=== PATIENT | male | born 1955 | race Caucasian/White ===

== ENCOUNTER 2025-06-01 12:28 | Outpatient (NON) | payer SELFPAY ==
--- OUTSIDE RECORDS SUMMARY | 2009-12-31 04:45 | XMS_ITS | Continuity of Care Document ---
Author Organization [facility] Address [address] [facility] [address] [place] [address] Phone Care Team Providers Care Silver Wrapper Name Role Phone [place] Montes MD Unavailable Unavailable Procedures Procedure Date Eye Exam Established Pt Eye Exam, New Patient Special Eye Evaluation Corneal Pachymetry Visual Field Examination(s) Fundus Photography W/ Report Advance Directives Directive Yes / No Effective Date File Name No Information Encounters Encounter Description Practice Location Reason(s) For Visit Diagnoses Date Provider Providers Copied on Encounter [facility], [address], [place], [place], [id number], tel:[phone] SEC Mohamud [place] Professional No Information Dec-3 0-201 0 Simon [place]. 1 [employer], [address], [address], [place]. tel:[phone] Referring Provider: Priscila Figueroa OD, [address] [place] [address], [address]. tel:[phone] [facility], [address], [place], [place], [id number], [place] tel:[phone] SEC Mohamud [place] Professional No Information Dec-0 9-201 0 Simon [place]. 1 [employer], [facility] [address], [address], [place]. tel:[phone] Referring Provider: Priscila Figueroa OD, [address] [place] [address], [address]. tel:[phone] Family History Family Member Type Diagnosis Age At Onset No Information Payers Payer name Insurance type Covered constitution party ID Mian washburn(s) [facility] [id number] Social History Type Description Quantity Date Captured Comments Sex Male Smoking Status No Information Chief Complaint And Reason For Visit No Information Reason For Referral Reason For Referral No Information History Of Present Illness Encounter Date Complaint History Of Prese nt Illness No Information Functional Status Date Functional Assessmen t No Information Instructions Date Instruction Additional Infor mation No Information Assessments Type Assessment Date No Information Patient Care Teams Name Effective Dates (start - stop) Status Members No Information
--- OUTSIDE RECORDS SUMMARY | 2025-06-01 13:18 | XMS_ITS | Clinical Summary ---
Author Organization [id number] [facility] Address [address] [place] [address] Care Team Providers Care Lumber Racker Name Role Phone Rafael Motta MD Primary Care Provider [phone] Allergies No known active allergies Medications albuterol sulfate HFA 90 mcg/actuation aerosol inhaler Take 2 Puffs by inhalation every 6 hours as needed for Shortness of Breath. Active acetaminophen (TYLENOL) 500 mg tablet Take 500 mg by mouth every 6 hours as needed. Active amLODIPine (NORVASC) 5 mg tablet Take 5 mg by mouth daily. Active aspirin (ECOTRIN EC) 81 mg Tablet, Delayed Release (E.C.) Take 81 mg by mouth daily. Active atorvastatin (LIPITOR) 40 mg tablet Take 40 mg by mouth daily. Active clopidogreL (PLAVIX) 75 mg Tablet Take 75 mg by mouth daily. Active fluticasone-ume clidinium-vilan terol (Trelegy Ellipta) 100-62.5-25 mcg Disk with Device Take 1 Puff by inhalation daily. Active dextromethorpha n-guaiFENesin (MUCINEX DM) 30-600 mg Tablet Sustained Release 12HR Take 1 Tablet by mouth every 12 hours. Active levETIRAcetam (KEPPRA) 250 mg tablet Take 250 mg by mouth 2 times daily. Active losartan (COZAAR) 50 mg tablet Take 50 mg by mouth daily. Active metoprolol succinate (TOPROL XL) 25 mg Extended Release 24 hour tablet Take 12.5 mg by mouth daily. Active Active Problems No known active problems Encounters Date Type Department Care Team Description 05/19/2025 External Device Data [facility] Provider, Abstract 05/12/2025 External Device Data [facility] Provider, Abstract from Last 3 Months Family History Medical History Relation Name Comments Diabetes Type 1 Father Stroke Mother Relation Name Status Comments Father Mother Social History Tobacco Use Types Packs/Day Years Used Date Smoking Tobacco: Former Cigarettes Tobacco Cessation:Counseling Given: Not Answered Alcohol Use Standard Drinks/Week Comments Never 0 (1 standard drink = 0.6 oz pur e alcohol) Sex and Gender Information Value Date Recorded Sex Assigned at Not on file Legal Sex Male 10:04 AM CDT Gender Identity Not on file Sexual Orientation Not on file Last Filed Vital Signs Vital Sign Reading Time Taken Comments Blood Pressure 144/76 02/09/2025 2:03 PM CDT Pulse 60 02/09/2025 2:03 PM CDT Temperature - - Respiratory Rate - - Oxygen Saturation - - Inhaled Oxygen Concentration - - Weight 103 kg (227 lb) 02/09/2025 2:03 PM CDT Height 176.5 cm (5' 9.5) 02/09/2025 2:03 PM CDT Body Mass Index 33.04 02/09/2025 2:03 PM CDT Plan of Treatment Health Maintenance Due Date Last Done Comments Pre-Diabetes and Diabetes Screening 1956 FIT-DNA Q 3 years 2001 FIT/FOBT Q 1 year 2001 Flex Sig/CT Colonography Q 5 years 2001 ZOSTER VACCINE (1 of 2) 2006 RSV VACCINE (60+ or ) (1 - Risk 60-74 years 1-dose series) 2016 Abdominal Aortic Aneurysm (A AA) Screening 2021 INFLUENZA VACCINE (#1) 2025 , 06/03/2024, 09/05/2023, Additional history exists DTAP/TDAP/TD VACCINES (2 - T d or Tdap) 02/05/2032 02/04/2022 COLORECTAL SCREENING 03/13/2033 03/13/2023, 03/13/2023, 09/06/2022 Colorectal Cancer Screening 03/13/2033 PNEUMOCOCCAL VACCINE 50+ YEARS Completed 02/14/2023 , 01/03/2022 Insurance [facility] Care Teams Lumber Racker Relationship Specialty Start Date End Date Rafael Motta MD 4 [facility] [address] [place] [id number] PCP - General Family Practice 02/04/25
--- OUTSIDE RECORDS SUMMARY | 2025-06-01 13:18 | XMS_ITS | Clinical Summary ---
Author Organization [facility] Address [address] [place] [address] Care Team Providers Care Automobile Assembly Supervisor Name Role Phone Rafael Motta MD Primary Care Provider [phone] Source Comments [facility],non-owned Affiliates and Associated Physician Practices is amultiple site organization consisting of ambulatory clinics and hospital sitesin [place], [place], [place] and [place]. This disclosure is being madepursuant to the Care Everywhere program and may not contain all information available regarding this patient. Last updated 18.[facility] Allergies No known active allergies Medications * Be aware that medications may not be up to date on this document. Alwaysverify current medications with the patient. losartan (Cozaar) 50 MG tablet Take 1 (one) tablet by mouth once daily Active acetaminophen (Tylenol) 325 MG tablet Take 2 (two) tablets by mouth every 4 hours as needed Maximum allowable Acetaminophen amount = 4 Grams (4000 mg) / 24 hours. 4 Active aspirin (Aspirin) 81 MG chew tablet Take 1 (one) tablet by mouth once daily 4 Active atorvastatin (Lipitor) 40 MG tablet Take 1 (one) tablet by mouth at bedtime 4 Active amLODIPine (Norvasc) 10 MG tablet Take 1 (one) tablet by mouth once daily 4 Active clopidogrel (plaVIX) 75 MG tablet Take 1 (one) tablet by mouth once daily 4 Active budesonide-for moterol (Symbicort) 80-4.5 MCG/ACT inhaler Inhale 2 (two) puffs by mouth 2 times daily 4 Active albuterol HFA (Proventil; Ventolin; Proair) 108 (90 Base) MCG/ACT inhaler Inhale 2 (two) puffs by mouth every 6 hours as needed 4 Active levETIRAcetam (Keppra) 250 MG tablet Take 1 (one) tablet by mouth 2 times daily 5 Active furosemide (Lasix) 20 MG tablet Take 1 (one) tablet by mouth once daily 5 Active Trelegy Ellipta 100-62.5-25 MCG/ACT Inhale 1 (one) puff by mouth once daily 5 09/12/19 26 Active metoprolol succinate XL 24hr (Toprol XL) 25 MG tablet Take 0.5 (one-half) tablet by mouth once daily 5 Active Active Problems Problem Noted Date Diagnosed Date Other emphysema 03/20/2024 Overview (04/30/2024): Last Assessment & Plan: Worsening sx and not at goal Was started on combivent respimat and has been using it standing qid Discussed this shuold be only as needed Will refill now And start symbicort bid Annual physical exam 03/20/2024 Overview (05/29/2024): Last Assessment & Plan: Discussed lifestyle modifications, diet and exercise. Routine blood work ordered/reviewed today. Yearly vision and dental examinations. Cerebrovascular accident (CVA), unspecified mech anism 02/14/2024 Colon polyp 04/04/2023 Class 1 obesity due to exces s calories with serious comorbidity and body mass index (BMI) of 32.0 to 32.9 in adult 02/14/2023 Overview (04/30/2024): Last Assessment & Plan: Wt Readings from Last 3 Encounters: 03/20/24 102.2 kg (225 lb 3.2 oz) 09/05/23 100.1 kg (220 lb 9.6 oz) 05/09/23 94.3 kg (207 lb 12.8 oz) BMI Readings from Last 3 Encounters: 03/20/24 32.53 kg/m 09/05/23 31.87 kg/m 05/09/23 30.03 kg/m Not at goal of bmi <30 Continue diet and exercise BMI Follow-up includes: nutrition counseling and exercise counseling. Abnormal gait 04/11/2022 Overview (04/30/2024): Ambulates with single point cane, may be due to loss of vision. Current smoker 01/03/2022 Overview (04/30/2024): Last Assessment & Plan: Has quit now since his hospital stay Continue NRT as needed doing nicotine patch Hypertension, essential 01/03/2022 Overview (04/30/2024): Last Assessment & Plan: BP Readings from Last 3 Encounters: 03/20/24 128/62 09/05/23 138/72 05/09/23 139/77 Vitals BP 128/62 (BP Location: Right arm, Patient Position: Sitting) Pulse 64 Resp 16 Ht 177.2 cm (5' 9.76) Wt 102.2 kg (225 lb 3.2 oz) SpO2 96% BMI 32.53 kg/m Lab Results Component Value Date POTASSIUM 3.9 04/25/2023 At goal cotninue current regimen losartan 50 mg qd , norvasc 10 mg qd Vision loss 01/03/2022 Overview (04/30/2024): Last Assessment & Plan: 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 (FLUAD QUADRIVALENT; 65Y+) (AIIV4) 06/03/2024 Social History Tobacco Use Types Packs/Day Years Used Date Smoking Tobacco: Former Cigarettes 1 54.6 0 09/29/1969 - 05/19/2024 Smokeless Tobacco: Never Tobacco Cessation:Counseling Given: Not Answered Alcohol Use Standard Drinks/Week Comments Never 0 (1 standard drink = 0.6 oz pur e alcohol) AUDIT-C Answer Date Recorded Q1: How often do you have a drink containing alcohol? Never 06/02/2024 Q2: How many drinks containi ng alcohol do you have on a typical day when you are drinking? Patient does not drink Q3: How often do you have si x or more drinks on one occasion? Never 06/02/2024 Overall Financial Resource Strain (CARDIA) Answe r Date Recorded How hard is it for you to pa y for the very basics like food, housing, medical care, and heating? Not very hard 06/02/2024 PHQ-2 Answer Date Recorded Patient Health Questionnaire-2 Score 0 02/16/2024 [facility] - Occupational Stress Questionnaire Answer Date Recorded Do you feel stress - tense, restless, nervous, or anxious, or unable to sleep at night because your mind is troubled all the time - these days? Not at all 06/02/2024 Hunger Vital Sign Answer Date Recorded Within the past 12 months, y ou worried that your food would run out before you got the money to buy more. Never true 06/02/20 24 Within the past 12 months, t he food you bought just didn't last and you didn't have money to get more. Never true 06/02/2024 PRAPARE - Transportation Answer Date Re corded In the past 12 months, has l ack of transportation kept you from medical appointments or from getting medications? No 05/06 In the past 12 months, has l ack of transportation kept you from meetings, work, or from getting things needed for daily living? No 06/02/2024 Housing Stability Vital Sign Answer Jay e Recorded In the last 12 months, was t here a time when you were not able to pay the mortgage or rent on time? No 06/02/2024 In the last 12 months, how many places have you lived? 1 06/02/2024 In the last 12 months, was t here a time when you did not have a steady place to sleep or slept in a fdc (including now)? No 06/02/2024 Sex and Gender Information Value Date Recorded Sex Assigned at Not on file Legal Sex Male 7:04 PM CDT Gender Identity Not on file Sexual Orientation Not on file Last Filed Vital Signs Vital Sign Reading Time Taken Comments Blood Pressure 128/63 06/03/2024 12:01 PM CDT Pulse 59 06/03/2024 12:01 PM CDT Temperature 36.8 C (98.2 F) 06/03/2024 12:10 PM CDT Respiratory Rate 21 06/03/2024 12:01 PM CDT Oxygen Saturation 90% 06/03/2024 12:01 PM CDT Inhaled Oxygen Concentration - - Weight 102.5 kg (226 lb) 03/04/2025 2:46 PM CDT Height 175.3 cm (5' 9) 06/02/2024 2:28 PM CDT Body Mass Index 33.37 06/02/2024 2:28 PM CDT Plan of Treatment Health Maintenance Due Date Last Done Comments COLOGUARD (AGES 45-75) - COLON CA SCREENING 1956 CT COLONOGRAPHY - COLON CA SCREENING 1956 FIT - COLON CA SCREENING 1956 FLEX SIG - COLON CA SCREENING 1956 MEDICARE AWV 12 MONTHS 1956 DTAP/TDAP/TD VACCINES (1 - Tdap) 1975 PNEUMOCOCCAL VACCINE 50+ (1 of 2 - PCV) 1975 LUNG CANCER SCREENING 2006 ZOSTER VACCINE (1 of 2) 2006 Respiratory Syncytial Virus (RSV) Vaccine Pt: or over 60 yrs (1 - Risk 60-74 years 1-dose series) 2016 AAA SCREENING 2021 DEPRESSION SCREENING 09/03/2024 02/14/2024 COVID-19 VACCINE (1 - season) 2025 INFLUENZA VACCINE (#1) 2025 06/03/2024 SCREENING FOR DIABETES 06/02/2027 , 05/02/2024, 02/16/2024, Additional history exists COLON MONITORING 03/13/2033 03/13/2023 COLONOSCOPY - COLON CA SCREENING 03/13/2033 03/13/2023 Colorectal Cancer Screening 03/13/2033 HEPATITIS C SCREENING Completed 12/11/2024, 025 HEPATITIS B VACCINE Aged Out No longe r eligible based on patient's age to complete this topic HIB VACCINE Aged Out No longer eligi ble based on patient's age to complete this topic HPV VACCINE Aged Out No longer eligi ble based on patient's age to complete this topic MENINGOCOCCAL (Group B) VACCINE SHARED DECISION-MAKING Aged Out No longer eligible based on patient's age to complete this topic MENINGOCOCCAL GROUPS A/C/Y/W VACCINE Aged Out No longer eligible based on patient's age to complete this topic Medical Devices Implanted Type Area Button Reclaimer Device Identifier Shelf Expiration Date Model / Serial / Lot Stent-06/02/20 24 Implanted:Qty : 1 on 06/02/2024 by Alejandra Quintero MD Stent Right: Carotid [employer] 01/28/2026 [employer] / [id number] / [id number] Description:R ICA Procedures Procedure Name Priority Date/Time Associated Diagnosis Comments BASIC METABOLIC PANEL (CALCIUM TOTAL) SLY 06/02/2024 8:47 AM CDT Cerebrovascular accident (CVA), unspecified mechanism from Last 3 Months or Most Recently Relevant to Health Maintenance Results * (ABNORMAL) BASIC METABOLIC PANEL (CALCIUM TOTAL) (06/02/2024 8:47 AM CDT) Glucose 117(H) 70 - 99 mg/dL 06/02/2024 9:17 AM CDT [facility] Sodium 140 136 - 145 mmol/L 06/02/2024 9:17 AM CDT [facility] Potassium 4.3 3.5 - 5.1 mmol/L 06/02/2024 9:17 AM CDT [facility] Chloride 107 98 - 107 mmol/L 06/02/2024 9:17 AM CDT [facility] CO2 25 22 - 29 mmol/L 06/02/2024 9:17 AM CDT [facility] Calcium 9.7 8.4 - 10.4 mg/dL 06/02/2024 9:17 AM CDT [facility] Anion Gap 8 6 - 16 mmol/L 06/02/2024 9:17 AM CDT [facility] BUN 10 7 - 26 mg/dL 06/02/2024 9:17 AM CDT [facility] Creatinine 0.92 0.72 - 1.25 mg/dL 06/02/2024 9:17 AM CDT [facility] eGFR by CKD-EPI >90 >=90 mL/min/1.7 3 m2 06/02/2024 9:17 AM CDT [facility] Blood BLOOD SPECIMEN / Unknown Venipuncture / Unknown 06/02/2024 8:47 AM CDT 06/02/2024 8:55 AM CDT us Alejandra Quintero MD LAB - CHEMISTRY ORDERABLES Fi nal Result [facility] [address] [place] [address] from Last 3 Months or Most Recently Relevant to Health Maintenance Insurance [facility] Advance Directives * Full Code (Latest Code Status on File) Date Activated Date Inactivated Comments 02/14/2024 7:34 PM 02/16/2024 8:26 PM Care Teams Automobile Assembly Supervisor Relationship Specialty Start Date End Date Rafael Motta MD [address] [place] [address] [place] [phone] PCP - General Hospitalist 02/15/24
--- OUTSIDE RECORDS SUMMARY | 2025-06-01 13:18 | XMS_ITS | Clinical Summary ---
Author Organization [facility] Address [address] [place] [address] Phone Care Team Providers Care Ticket Collector Name Role Phone Provider, Not On File Primary Care Provider Unav ailable Medications No known medications Social History Tobacco Use Types Packs/Day Years Used Date Smoking Tobacco: Never Assessed Sex and Gender Information Value Date Recorded Sex Assigned at Not on file Legal Sex Male 12:01 AM CDT Gender Identity Not on file Sexual Orientation Not on file Last Filed Vital Signs Vital Sign Reading Time Taken Comments Blood Pressure 135/81 02/14/2024 7:30 PM CDT Pulse 90 02/14/2024 7:30 PM CDT Temperature 36.5 C (97.7 F) 02/14/2024 6:41 PM CDT Respiratory Rate 19 02/14/2024 7:30 PM CDT Oxygen Saturation 92% 02/14/2024 7:30 PM CDT Inhaled Oxygen Concentration - - Weight 103.3 kg (227 lb 11.8 oz) 02/14/2024 6:11 PM CDT Height 170.2 cm (5' 7) 02/14/2024 6:13 PM CDT Body Mass Index 35.67 02/14/2024 6:11 PM CDT Plan of Treatment Health Maintenance Due Date Last Done Comments Hepatitis C Virus (HCV) Screening 1956 Cologuard 2001 Immunochemical Fecal Occult Blood 2001 Zoster Immunization (1 of 2) 2006 PSA Discussion 2011 Medicare Initial AWV [id number] 09/03/2022 Influenza Immunization (#1) 05/04/2025/0 11/2023, 08/01/2022 SARS-COV-2 Immunization ( season) 2025 04/05/2021, 03/15/2021 Respiratory Syncytial Virus (RSV) Immunization (Adult) (1 - 1-dose 75+ series) 2031 Colonoscopy 03/13/2033 03/13/2023 Colorectal Cancer Screening 03/13/2033 TdaP Immunization Completed 02/04/2022 Pneumococcal Immunization (5 0+ years) Completed 02/14/2023, 01/03/2022 Hepatitis B Immunization Aged Out No longer eligible based on patient's age to complete this topic Human Papillomavirus (HPV) Immunization Aged Out No longer eligible b ased on patient's age to complete this topic Meningococcal Immunization (ACWY) Aged Out No longer eligible b ased on patient's age to complete this topic Rotavirus Immunization Aged Out No lo nger eligible based on patient's age to complete this topic Insurance MEDICARE C [employer] Care Teams Ticket Collector Relationship Specialty Start Date End Date Provider, Not On File [place] PCP - General 02/14/24
--- OUTSIDE RECORDS SUMMARY | 2025-06-01 13:18 | XMS_ITS | Clinical Summary ---
Author Organization [facility] Medical Office Building A Address [address] [place] [address] Care Team Providers Care Hospitality Job Titles Name Role Phone Evangelista Dumont MD Unavailable [phone] Cleo Higgins MD Unavailable [phone] Silvio Dukes MD Unavailable [phone] Frieda Beck CURRIE Unavailable Unavailable Fidelina Kelly RN Unavailable [phone] Yamel Crane OT Unavailable Unavailable Nahum Mckeon MD Unavailable Iraj Arriaza MD Primary Care Provider + Jacoby Lantigua MD Unavailable [phone] Panchito Thomas MD Unavailable [phone] Miscellaneous, Not In File Unavailable Unava ilable Allergies No known active allergies Medications aspirin 81 mg chewable tabletIndications:C erebral Thromboembolism Prevention Take 1 tablet (81 mg total) by mouth daily Active acetaminophen (TYLENOL) 500 mg tabletIndications:P ain Take 1 tablet (500 mg total) by mouth every 6 (six) hours as needed for pain Active guaiFENesin ER (MUCINEX) 600 mg 12 hr tablet Take 1 tablet (600 mg total) by mouth 2 (two) times a day 60 tablet 11 08/15/20 24 025 Active albuterol HFA (PROVENTIL HFA,VENTOLIN HFA,PROAIR HFA) 90 mcg/actuation inhaler Inhale 2 puffs every 6 (six) hours as needed for wheezing 3 each 4 09/17/19 25 026 Active fluticasone-umeclid in-vilanter (Trelegy Ellipta) 100-62.5-25 mcg inhaler Inhale 1 puff daily 30 each 11 09/17/19 25 026 Active clopidogreL (PLAVIX) 75 mg tablet Take 1 tablet (75 mg total) by mouth daily 90 tablet 3 12/23/19 25 Active atorvastatin (LIPITOR) 40 mg tablet TAKE 1 TABLET BY MOUTH AT BEDTIME 90 tablet 1 04/28/20 25 Active levETIRAcetam (KEPPRA) 250 mg tablet Take 1 tablet (250 mg total) by mouth 2 (two) times a day 120 tablet 05/05/20 25 025 Active amiodarone (PACERONE) 200 mg tabletIndications:P revention of A. Fib Post Cardio-Thoracic Surgery Take 2 tablets (400 mg total) by mouth 2 (two) times a day for 7 days, THEN 2 tablets (400 mg total) daily for 14 days. 56 tablet 05/25/20 25 025 Active furosemide (LASIX) 40 mg tablet Take 1 tablet (40 mg total) by mouth daily for 14 days 14 tablet 05/26/20 25 025 Active methocarbamoL (ROBAXIN) 500 mg tabletIndications:M uscle Spasm Take 1 tablet (500 mg total) by mouth 3 (three) times a day as needed for muscle spasms for up to 7 days 21 tablet 05/25/20 25 025 Active metoprolol tartrate (LOPRESSOR) 25 mg immediate release tablet Take 0.5 tablets (12.5 mg total) by mouth 2 (two) times a day 30 tablet 1 05/25/20 25 025 Active potassium chloride ER (KLOR-CON) 20 mEq CR tablet Take 1 tablet (20 mEq total) by mouth daily for 14 days 14 tablet 05/26/20 25 025 Active oxyCODONE (ROXICODONE) 5 mg immediate release tabletIndications:P ain Take 1 tablet (5 mg total) by mouth every 4 (four) hours as needed for pain 10 tablet 05/25/20 25 Active losartan (COZAAR) 100 mg tabletIndications:H ypertension, essential Take 1 tablet (100 mg total) by mouth daily 30 tablet 3 02/18/20 25 025 Discontin ued(Stop Taking at Discharge ) metoprolol XL (TOPROL-XL) 25 mg extended release tablet Take 0.5 tablets (12.5 mg total) by mouth daily 45 tablet 3 03/31/20 25 025 Discontin ued(Stop Taking at Discharge ) furosemide (LASIX) 20 mg tablet TAKE 1 TABLET BY MOUTH EVERY MORNING BEFORE BREAKFAST 30 tablet 1 04/10/20 25 025 Discontin ued(Stop Taking at Discharge ) Active Problems Problem Noted Date Diagnosed Date Coronary artery disease invo lving autologous artery coronary bypass graft without angina pectoris 05/19/2025 Hyperlipidemia, unspecified 05/18/2025 Assessment & Plan (05/18/2025 8:31 PM CDT): Coronary artery disease of n ative heart with stable angina pectoris 03/10/2025 Assessment & Plan (05/18/2025 8:31 PM CDT): Syncope 01/01/2025 Assessment & Plan (01/08/2025 9:19 AM CDT): New problem, uncertain etiology Reason for hospitalization Neurologic and cardiac origins being explored at this time by specialists -Currently wearing 30 day event monitor Continue driving restriction until lifted by neurologist Continue seizure precautions and prescribed Keppra 200 mg twice a day with neurology follow up NSTEMI (non-ST elevated myocardial infarction) 0 12/31/2024 Assessment & Plan (05/18/2025 8:31 PM CDT): Assessment & Plan (01/08/2025 9:16 AM CDT): New problem, identified during hospitalization Potentially reason for syncopal event Follows with cardiology and will see electrophysiology soon Continue medications including beta-robert, aspirin, statin and Plavix 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 12/31/2024 Assessment & Plan (05/18/2025 8:31 PM CDT): Assessment & Plan (01/08/2025 9:18 AM CDT): New problem Attempted stent placement unsuccessful during cardiac catheterization in hospitalization follow up with Cardiology for continued evaluation -Scheduled for PET/MRI Altered mental status 12/30/2024 Metabolic acidosis, increased anion gap 12/31/19 25 Elevated troponin 12/29/2024 History of colonic polyps 12/23/2024 Nocturnal hypoxia 12/19/2024 Lower extremity edema 11/19/2024 COPD exacerbation 08/11/2024 Prediabetes 06/18/2024 Assessment & Plan (05/18/2025 8:31 PM CDT): History of ischemic stroke 03/20/2024 Assessment & Plan (12/22/2024 3:22 PM CDT): stable Continue asa, plavix and lipitor Assessment & Plan (03/20/2024 10:53 AM CDT): Recent stroke Will be following with neuro Continue asa, plavix, lipitor 40 mg every day Centrilobular emphysema 03/20/2024 Assessment & Plan (05/18/2025 8:31 PM CDT): Assessment & Plan (01/08/2025 9:15 AM CDT): Chronic problem, recently exacerbated however stable at this time Follows with pulmonology Continue trilogy 1 puff daily with p.r.n. albuterol Assessment & Plan (03/20/2024 11:06 AM CDT): Worsening sx and not at goal Was started on combivent respimat and has been using it standing qid Discussed this shuold be only as needed Will refill now And start symbicort bid Annual physical exam 03/20/2024 Assessment & Plan (12/22/2024 3:23 PM CDT): Discussed lifestyle modifications, diet and exercise. Routine blood work ordered/reviewed today. Yearly vision and dental examinations. Assessment & Plan (03/20/2024 11:07 AM CDT): Discussed lifestyle modifications, diet and exercise. Routine blood work ordered/reviewed today. Yearly vision and dental examinations. Hospital discharge follow-up 05/01/2023 Assessment & Plan (05/01/2023 12:01 PM CDT): Doing well. Has f/u with Dr Dukes scheduled. May take period ibuprofen alternating with tylenol for pain. Encouraged walking. Colon polyp 04/04/2023 Class 1 obesity due to exces s calories with serious comorbidity and body mass index (BMI) of 32.0 to 32.9 in adult 02/14/2023 Assessment & Plan (01/08/2025 9:14 AM CDT): Chronic, stable, not at goal BMI less than 30. Wt Readings from Last 3 Encounters: 01/07/25 105.8 kg (233 lb 3.2 oz) 12/30/24 102.4 kg (225 lb 12 oz) 12/30/24 102.4 kg (225 lb 12 oz) Body mass index is 33.46 kg/m . BMI plan includes nutrition and exercise changes to reduce overall morbidity and mortality in light of cardiac disease Assessment & Plan (11/19/2024 11:14 AM CDT): Wt Readings from Last 3 Encounters: 11/19/24 102.4 kg (225 lb 11.2 oz) 09/17/24 103.6 kg (228 lb 8 oz) 08/11/24 101.6 kg (223 lb 15.8 oz) BMI Readings from Last 3 Encounters: 11/19/24 33.31 kg/m 09/17/24 33.74 kg/m 08/11/24 33.08 kg/m Not at goal of bmi <30 Continue diet and exercise BMI Follow-up includes: nutrition counseling and exercise counseling. Assessment & Plan (06/18/2024 10:50 AM CDT): Wt Readings from Last 3 Encounters: 06/18/24 104 kg (229 lb 4.8 oz) 03/20/24 102.2 kg (225 lb 3.2 oz) 09/05/23 100.1 kg (220 lb 9.6 oz) BMI Readings from Last 3 Encounters: 06/18/24 33.12 kg/m 03/20/24 32.53 kg/m 09/05/23 31.87 kg/m Not at goal of bmi <30 Continue diet and exercise BMI Follow-up includes: nutrition counseling and exercise counseling. Assessment & Plan (03/20/2024 10:52 AM CDT): Wt Readings from Last 3 Encounters: 03/20/24 102.2 kg (225 lb 3.2 oz) 09/05/23 100.1 kg (220 lb 9.6 oz) 05/09/23 94.3 kg (207 lb 12.8 oz) BMI Readings from Last 3 Encounters: 03/20/24 32.53 kg/m 09/05/23 31.87 kg/m 05/09/23 30.03 kg/m Not at goal of bmi <30 Continue diet and exercise BMI Follow-up includes: nutrition counseling and exercise counseling. 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 Assessment & Plan (02/14/2023 11:11 AM CDT): Wt Readings from Last 3 Encounters: 02/14/23 95.5 kg (210 lb 9.6 oz) 09/06/22 93 kg (205 lb 0.4 oz) 08/01/22 89.4 kg (197 lb) BMI Readings from Last 3 Encounters: 02/14/23 30.22 kg/m 09/06/22 29.42 kg/m 08/01/22 28.27 kg/m Not at goal of bmi <30 Continue diet and exercise BMI Follow-up includes: nutrition counseling and exercise counseling. Personal history of colonic polyps 10/12/2022 Overview (10/12/2022): Added automatically from request for surgery [id number] Abnormal gait 04/11/2022 Overview (04/11/2022): Ambulates with single point cane, may be due to loss of vision. Encounter for Medicare annual wellness exam 02/01 Assessment & Plan (02/14/2023 11:10 AM CDT): A yearly well adult visit has been performed today. Nasra Camargo is not up to date on screening tests. They are in need of AAA Screening, Lung cancer screening and Colon cancer screening- these have been ordered. Patient is not up to date on needed preventative vaccinations; Is in need of Zoster and Covid-19 (booster). These have been ordered/arranged unless otherwise indicated. Discussed lifestyle modifications, diet and exercise. Routine blood work ordered/reviewed today. Yearly vision and dental examinations. Assessment & Plan (02/14/2022 11:36 AM CDT): A yearly Essence Enhanced Encounter has been performed today. Nasra Camargo is not up to date on screening tests. He is in need of Colon cancer screening- these have been ordered. He is not up to date on needed preventative vaccinations. 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 Stable and at goal SBP less than 140 Continue amlodipine 5 mg, losartan 50 mg, and metoprolol 12.5 mg, each daily as Rx. Recommend heart-healthy diet and regular exercise-resumed as tolerated after cardiac procedures. Assessment & Plan (12/22/2024 3:23 PM CDT): BP Readings from Last 3 Encounters: 12/22/24 116/68 12/17/24 120/59 11/19/24 124/64 Vitals BP 116/68 (BP Location: Right arm, Patient Position: Sitting) Pulse 83 Resp 16 Ht 175.3 cm (5' 9.02) Wt 102.7 kg (226 lb 6.4 oz) SpO2 96% BMI 33.42 kg/m Lab Results Component Value Date POTASSIUM 4.8 12/11/2024 At goal cotninue current regimen losartan 50 mg every day Has been having some worsening lower ext edema Will decrease norvasc to 5 mg every day C/w hctz 12.5 mg every day Assessment & Plan (11/19/2024 11:19 AM CDT): BP Readings from Last 3 Encounters: 11/19/24 124/64 09/17/24 134/74 08/15/24 114/53 Vitals BP 124/64 (BP Location: Right arm, Patient Position: Sitting) Pulse 81 Resp 16 Ht 175.3 cm (5' 9.02) Wt 102.4 kg (225 lb 11.2 oz) SpO2 96% BMI 33.31 kg/m Lab Results Component Value Date POTASSIUM 4.4 08/15/2024 At goal cotninue current regimen losartan 50 mg every day Has been having some worsening lower ext edema Will decrease norvasc to 5 mg every day Start hctz 12.5 mg every day Assessment & Plan (06/18/2024 10:46 AM CDT): BP Readings from Last 3 Encounters: 06/18/24 128/68 03/20/24 128/62 09/05/23 138/72 Vitals BP 128/68 (BP Location: Right arm, Patient Position: Sitting) Pulse 67 Resp 16 Ht 177.2 cm (5' 9.76) Wt 104 kg (229 lb 4.8 oz) SpO2 97% BMI 33.12 kg/m Lab Results Component Value Date POTASSIUM 3.9 04/25/2023 At goal cotninue current regimen losartan 50 mg qd , norvasc 10 mg qd Assessment & Plan (03/20/2024 10:54 AM CDT): BP Readings from Last 3 Encounters: 03/20/24 [...] mg qd , norvasc 10 mg qd Assessment & Plan (09/05/2023 12:49 PM 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 Lab Results Component Value Date POTASSIUM 3.9 04/25/2023 At goal cotninue current regimen losartan 50 mg qd , norvasc 10 mg qd Assessment & Plan (02/14/2023 11:11 AM CDT): BP Readings from Last 3 Encounters: 02/14/23 140/72 09/06/22 159/72 08/06/22 129/76 Vitals BP 140/72 (BP Location: Left arm, Patient Position: Sitting) Pulse 65 Resp 18 Ht 177.8 cm (5' 10) Wt 95.5 kg (210 lb 9.6 oz) SpO2 99% BMI 30.22 kg/m Lab Results Component Value Date POTASSIUM 4.3 01/03/2022 At goal cotninue current regimen losartan 50 mg qd , norvasc 10 mg qd Assessment & Plan (04/11/2022 9:18 AM CDT): Blood pressure near goal of less than 140/90. Continue current prescription medications. Keep scheduled follow-up with primary care physician later this month for blood pressure management. Assessment & Plan (02/14/2022 11:46 AM CDT): HPI: Condition is not at/near goal A&P: Discussed/ordered labs, encouraged healthy, low carbohydrate lifestyle and at least 150min/week of exercise. Increase norvac to 10 mg Blood Pressure Follow-up: Lifestyle modifications education provided on increase physical activity, reduce alcohol consumption and weight reduction. Assessment & Plan (01/03/2022 11:09 AM CDT): HPI: Condition is not at/near goal A&P: Discussed/ordered labs, encouraged healthy, low carbohydrate lifestyle and at least 150min/week of exercise. Will start norvasc 5 mg and have pt rtc in about 4 weeks for repeat bp check Current smoker 01/03/2022 Assessment & Plan (03/20/2024 10:54 AM CDT): Has quit now since his hospital stay Continue NRT as needed doing nicotine patch Assessment & Plan (05/02/2022 10:50 AM CDT): Continue to try and quit conselling and information provided Assessment & Plan (02/14/2022 11:33 AM CDT): Willing to try to quit - discussed options Resolved Problems Problem Noted Date Diagnosed Date Resolved Date Coronary artery disease invo lving capitan grande coronary artery of cap[place] grande heart without angina pectoris 04/16/2025 05/18/2025 Shortness of breath 12/30/2024 05/18/20 25 Pneumonia of right upper lob e due to infectious organism 12/30/2024 05/18/2025 Assessment & Plan (01/08/2025 9:15 AM CDT): New problem, now resolved Treated with antibiotics in the hospital -Complete as prescribed Blood cultures returned negative No continued fevers or respiratory symptoms at this time Weight loss 01/27/2022 02/14/2022 Overview (01/27/2022): Added automatically from request for surgery [id number] Other specified glaucoma 01/03/2022 Assessment & Plan (02/14/2022 11:26 AM CDT): Has appointment scheduled with ophto laser surgeon Saw Dr. dumont was referred out to someone else. Had multiple eye tests done. Low normal eye pressure Encounters Date Type Department Care Team Description 05/25/2025 Orders Only [facility] Medicine Surgery [id number] [place] [phone] Rick Camilo NP 05/19/2025 8:09 AM CDT Anesthesia Event [facility] Operating Room [address] [place] [address] Vega Pimentel MD Ware, Melita C., NP 05/19/2025 8:00 AM CDT - 05/19/2025 1:[address] [facility] Operating Room [address] [place] [address] Jacoby Lantigua MD CORONARY ARTERY BYPASS GRAFT X 1 WITH TAYLOR CONDUIT 05/19/2025 7:05 AM CDT Ancillary Procedure [facility] Operating Room [address] [place] [address] 05/19/2025 6:11 AM CDT - 05/25/2025 5:08 PM CDT Hospital Encounter [address] [address] Jacoby Lantigua MD Coronary artery disease involving capitan grande coronary artery of capitan grande heart without angina pectoris (Primary Dx) Discharge Disposition: Discharge to home, home health skilled care 05/18/2025 11:30 AM CDT Office Visit [facility] Primary Care at [address] [place] [address] Iraj Arriaza MD Sarcoidosis (Primary Dx); NSTEMI (non-ST elevated myocardial infarction) (HCC); Coronary artery disease of cap[place] grande artery of capitan grande heart with stable angina pectoris; 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 (HCC); Centrilobular emphysema (HCC); History of CVA with residual deficit; Seizure disorder (HCC); Hypertension, essential; Prediabetes; Mixed hyperlipidemia 05/08/2025 11:11 AM CDT - 05/08/2025 11:59 PM CDT Hospital Encounter [facility] Diagnostic Imaging [address] [place] [phone] Discharge Disposition: Discharge to home or self care 05/08/2025 10:45 AM CDT Pre-Admission Testing [facility] Pre Anesthesia Testing [address] [place] [address] Coronary artery disease involving capitan grande coronary artery of capitan grande heart without angina pectoris; Shortness of breath 04/24/2025 Telephone [facility] [address] [place] [address] [address] [place] [address] Rafael Motta MD Referral Request 04/20/2025 10:45 AM CDT Office Visit [facility] Medical Group Pulmonary at [address] [place] [address] Raghavendra Robb DO Pulmonary sarcoidosis (Primary Dx); Shortness of breath; Centrilobular emphysema (HCC); Nocturnal hypoxia 04/20/2025 Telephone [facility] Primary Care at [address] [place] [address] Iraj Arriaza MD Insurance Referrals 04/15/2025 Documentation [facility] Medicine Surgery [id number] [place] [address] [address] [place] [phone] Cristal Castorena NP Reschedule surgery f/u bx 04/09/2025 12:40 PM CD[address] Anesthesia Event [facility] GI Lab [address] [place] [address] Phi Morris DO [place], Sulaiman Vail, URSULA 04/09/2025 12:00 PM CDT - 04/09/2025 2:[address] [facility] GI Lab [address] [place] [address] Monica Washington MD ION ROBOT BRONCHOSCOPY 04/09/2025 9:21 AM CDT - 04/09/2025 4:18 PM CDT Hospital Encounter [facility] GI Lab [address] [place] [address] Monica Washington MD Lung nodule Discharge Disposition: Discharge to home or self care 04/09/2025 8:55 AM CDT - 04/09/2025 11:59 PM CDT Hospital Encounter [facility] Diagnostic Imaging [address] [place] [address] Lung nodule Discharge Disposition: Discharge to home or self care 04/09/2025 8:50 AM CDT - 04/09/2025 11:59 PM CDT Hospital Encounter [facility] Diagnostic Imaging [address] [place] [address] Lung nodule Discharge Disposition: Discharge to home or self care 04/07/2025 Telephone [facility] Medical Group Pulmonary at [place] [address] [facility] [address] [place] [address] Samreen Martin LPN Abnormal PET 04/01/2025 9:45 AM CDT Lab [address] [address] 03/30/2025 Telephone [facility] Primary Care at [place] [address] [facility] [address] [place] [address] Referring, MD Octavia Referral Request 03/30/2025 Documentation [facility] Medicine [facility] [address] [place] [address] [address] [place] [phone] Cristal Castorena NP Cancel CABG- Pulm consult 03/30/2025 Orders Only [facility] Surgery [address] [place] [address] [address] [place] [phone] Cristal Castorena NP Lung nodules (Primary Dx) 03/26/2025 10:06 AM CDT - 03/26/2025 11:59 PM CDT Hospital Encounter [facility] Imaging and Radiology [address] [place] [address] Lung nodules Discharge Disposition: Discharge to home or self care 03/24/2025 11:59 PM CDT Anesthesia Event [facility] Operating Room [address] [place] [address] Priti Landon NP 03/24/2025 9:10 AM CDT - 03/24/2025 11:59 PM CDT Hospital Encounter [facility] Diagnostic Imaging [address] [place] [address] Discharge Disposition: Discharge to home or self care 03/24/2025 8:45 AM CDT Pre-Admission Testing [facility] Pre Anesthesia Testing [address] [place] [address] Encounter for preadmission testing (Primary Dx); Coronary artery disease of cap[place] grande heart with stable angina pectoris, unspecified vessel or lesion type; Shortness of breath; Other specified coagulation defects 03/23/2025 Orders Only [facility] Surgery [address] [place] [address] [address] [place] [phone] Cristal Castorena NP Lung nodules (Primary Dx) 03/19/2025 2:39 PM CDT - 03/19/2025 11:59 PM CDT Hospital Encounter [facility] Imaging and Radiology [address] [place] [address] NSTEMI (non-ST elevated myocardial infarction) (HCC); Syncope, unspecified syncope type Discharge Disposition: Discharge to home or self care 03/19/2025 2:39 PM CDT - 03/19/2025 11:59 PM CDT Hospital Encounter [facility] Imaging and Radiology [address] [place] [address] NSTEMI (non-ST elevated myocardial infarction) (HCC); Syncope, unspecified syncope type Discharge Disposition: Discharge to home or self care 03/11/2025 Telephone [facility] Medical Group Primary Care at [address] [place] [address] Rafael Motta MD 03/10/2025 1:00 PM CDT Office Visit [facility] Surgery [address] [place] [address] [address] [place] [address] Jacoby Lantigua MD NSTEMI (non-ST elevated myocardial infarction) (HCC) (Primary Dx); Coronary artery disease involving capitan grande coronary artery of capitan grande heart without angina pectoris 03/10/2025 Orders Only [facility] Surgery [address] [facility] [address] [place] [address] Jacoby Lantigua MD NSTEMI (non-ST elevated myocardial infarction) (HCC) (Primary Dx); Syncope, unspecified syncope type from Last 3 Months Immunizations Immunization Administration Dates Next Due Influenza, Quadrivalent, Hig h Dose, Preservative Free, Intrr 06/03/2024,09/05/2023,08/01/2022 Influenza, Unspecified 04/11/2022(Deferr ed: Patient Refused),11/01/2021(Deferred: Patient Refused) Pneumococcal Conjugate PCV 13 02/14/2023 Pneumococcal Polysaccharide PPV23 01/03/2022 Tdap 02/04/2022 Surgical History Surgery Date Site/Laterality Comments COLONOSCOPY 09/06/2022 EYE SURGERY cataract COLECTOMY 04/23/2023 CARDIAC CATHETERIZATION 12/31/2024 N/A Procedure: LEFT HEART CATHETERIZATION WITH CORONARY ANGIOGRAPHY AND WITH OR WITHOUT LEFT VENTRICULOGRAM [id number]; Surgeon: Panchito Thomas MD; Location: [facility] CARDIAC NURSING AGENCY MANAGER; Service: Cardiovascular; Laterality: N/A; CARDIAC CATHETERIZATION 12/31/2024 N/A Procedure: PCI PHIL MAJOR CORONARY [id number] - [id number]; Surgeon: Panchito Thomas MD; Location: [facility] CARDIAC NURSING AGENCY MANAGER; Service: Cardiovascular; Laterality: N/A; CARDIAC CATHETERIZATION 12/31/2024 N/A Procedure: IVUS/OCT CORS OR GRAFTS, FIRST VESSEL (+) [id number]; Surgeon: Panchito Thomas MD; Location: [facility] CARDIAC NURSING AGENCY MANAGER; Service: Cardiovascular; Laterality: N/A; PERCUTANEOUS PLACEMENT INTRAVASCULAR STENT CERVICAL CAROTID ARTERY LUNG BIOPSY CORONARY ARTERY BYPASS GRAFT 05/19/2025 Chest/N/A Procedure: CORONARY ARTERY BYPASS GRAFT X 1 WITH TAYLOR CONDUIT; Surgeon: Jacoby Lantigua MD; Location: OPERATING ROOM; Service: Cardiothoracic; Laterality: N/A; TAYLOR Medical History Medical History Date Comments Hypertension Pneumonia NSTEMI (non-ST elevated myoc ardial infarction) ([facility]) Stroke ([facility]) 02/2024 Limb alert care status left arm d/t stroke in February 2024 Colonic mass benign Carotid stenosis, right Seizure ([facility]) 1st seizure 03/22 25, compliant on Keppra HLD (hyperlipidemia) CAD (coronary artery disease) Cardiomyopathy COPD (chronic obstructive pu lmonary disease) On home oxygen therapy Family History Medical History Relation Name Comments Diabetes Father Colon cancer Maternal Grandmother Relation Name Status Comments Father Maternal Grandmother Mother Social History Tobacco Use Types Packs/Day Years Used Date Smoking Tobacco: Former Cigarettes 0.3 36.4 0 09/03/1987 - 02/2024 Smokeless Tobacco: Never Tobacco Cessation:Counseling Given: Not Answered Alcohol Use Standard Drinks/Week Comments Never 0 (1 standard drink = 0.6 oz pur e alcohol) Social Connection and Isolation Panel Answer Date Recorded In a typical week, how many times do you talk on the phone with family, friends, or neighbors? More than three times a week 01/02/2025 How often do you get togethe r with friends or relatives? More than three times a week 01/02/2025 How often do you attend [facility] or mormon services? Never 01/02/2025 Do you belong to any clubs o r organizations such as quaker groups, unions, fraternal or athletic groups, or school groups? Yes 01/02/2025 How often do you attend meet ings of the clubs or organizations you belong to? Never 01/02/2025 Are you , , di vorced, , never , or living with a partner? 01/02/2025 Overall Financial Resource Strain (CARDIA) Answe r Date Recorded How hard is it for you to pa y for the very basics like food, housing, medical care, and heating? Somewhat hard 01/02/2025 PHQ-2 Answer Date Recorded PHQ-2 Total Score (If total score is 3 or more points, staff should administer the PHQ-9) 0 01/07/2025 [facility] - Occupational Stress Questionnaire Answer Date Recorded Do you feel stress - tense, restless, nervous, or anxious, or unable to sleep at night because your mind is troubled all the time - these days? To some extent 03/13/2024 PRAPARE - Transportation Answer Date Re corded In the past 12 months, has l ack of transportation kept you from medical appointments or from getting medications? No 10/2024 In the past 12 months, has l ack of transportation kept you from meetings, work, or from getting things needed for daily living? No 01/02/2025 Housing Stability Vital Sign Answer Jay e Recorded In the last 12 months, was t here a time when you were not able to pay the mortgage or rent on time? No 01/02/2025 In the past 12 months, how m any times have you moved where you were living? 0 01/02/2025 At any time in the past 12 m [facility], were you homeless or living in a fdc (including now)? No 01/02/2025 Social Connection and Isolation Panel Answer Date Recorded In a typical week, how many times do you talk on the phone with family, friends, or neighbors? More than three times a week 05/22/2025 How often do you get togethe r with friends or relatives? More than three times a week 05/22/2025 How often do you attend chur ch or mormon services? Never 05/22/2025 Do you belong to any clubs o r organizations such as quaker groups, unions, fraternal or athletic groups, or school groups? No 05/22/2025 How often do you attend meet ings of the clubs or organizations you belong to? Never 05/22/2025 Are you , , di vorced, , never , or living with a partner? 05/22/2025 AUDIT-C Answer Date Recorded Frequency of Alcohol Consumption Not on file 05/19/2025 Q2: How many drinks containi ng alcohol do you have on a typical day when you are drinking? Patient does not drink Frequency of Binge Drinking Not on file 05/04 Overall Financial Resource Strain (CARDIA) Answe r Date Recorded How hard is it for you to pa y for the very basics like food, housing, medical care, and heating? Somewhat hard 05/22/2025 Hunger Vital Sign Answer Date Recorded Within the past 12 months, y ou worried that your food would run out before you got the money to buy more. Never true 05/22/20 25 Within the past 12 months, t he food you bought just didn't last and you didn't have money to get more. Never true 05/22/2025 PRAPARE - Transportation Answer Date Re corded In the past 12 months, has l ack of transportation kept you from medical appointments or from getting medications? No 05/04 In the past 12 months, has l ack of transportation kept you from meetings, work, or from getting things needed for daily living? No 05/22/2025 Housing Stability Vital Sign Answer Jay e Recorded In the last 12 months, was t here a time when you were not able to pay the mortgage or rent on time? No 05/22/2025 In the past 12 months, how m any times have you moved where you were living? 0 05/22/2025 At any time in the past 12 m [facility], were you homeless or living in a fdc (including now)? No 05/22/2025 [facility] Utilities Answer Date Recorded In the past 12 months has th e electric, gas, oil, or water company threatened to shut off services in your home? No 05/22/2025 Personal Safety Answer Date Recorded Have you ever been in or are you currently in a harmful physical or emotional relationship or is someone making you feel afraid or unsafe? 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 Gender Identity Male 04/26/2023 4:17 PM CDT Sexual Orientation Straight 04/26/2023 4: 17 PM CDT Obstetrics History Last Filed Vital Signs Vital Sign Reading Time Taken Comments Blood Pressure 113/57 05/25/2025 4:28 PM CDT Pulse 57 05/25/2025 4:28 PM CDT Temperature 36.9 C (98.4 F) 05/25/2025 4:28 PM CDT Respiratory Rate 18 05/25/2025 4:28 PM CDT Oxygen Saturation 97% 05/25/2025 4:28 PM CDT Inhaled Oxygen Concentration - - Weight 96.2 kg (212 lb) 05/24/2025 6:40 AM CDT Height 175.3 cm (5' 9.02) 05/20/2025 11:34 AM C DT Body Mass Index 31.29 05/20/2025 11:34 AM CDT Plan of Treatment Upcoming Encounters Date Type Department Care Team (Late st Contact Info) Description 09/23/2025 8:30 AM AUDIT CLERKS SUPERVISOR Hospital Encounter [address] [address] Cleo Higgins MD [address] [place] [address] [place] [address] 09/23/2025 8:30 AM AUDIT CLERKS SUPERVISOR - 09/23/2025 9:00 AM AUDIT CLERKS SUPERVISOR Surgery [address] [address] Cleo Higgins MD [address] [place] [address] [address] [place] [address] COLONOSCOPY Scheduled Procedures Name Priority Associated Diagnoses Date/Ti me COLONOSCOPY History of colonic polyps 09/23/2025 8:30 AM AUDIT CLERKS SUPERVISOR Health Maintenance Due Date Last Done Comments Lung Cancer Screening 2006 Zoster Vaccine (1 of 2) 2006 Abdominal Aortic Aneurysm (A AA) Screen 2021 Colon Cancer Screening-Colonoscopy 03/13/20242022, 09/06/2022 Covid-19 Vaccine (3 2024-2 6 season) 2025 04/05/2021, 03/15/2021 Influenza Vaccine (#1) 2025 , 09/05/2023, 08/01/2022 Well Visit 65+ 12/22/2025 12/22/2024, 03/03, 02/14/2023, Additional history exists Depression Screening 01/07/2026 01/07/2025, 12/22/2024, 11/19/2024, Additional history exists Fall Risk Assessment 05/25/2026 05/25/2025, 01/07/2025, 12/22/2024, Additional history exists Prostate Cancer Screening-PSA 12/11/2026 12/11/2024, 01/03/2022 DTaP/Tdap/Td Vaccine (2 - Td or Tdap) 02/05/2032 02/04/2022 Pneumococcal vaccine 65+ Completed 02/14/2023, 0511/2021 Hepatitis B Screening Completed 12/11/2024 Hepatitis C Screening Completed 12/11/2024, 022 Goals Goal Patient Goal Type Associated Problems Recent Progress Patient-Stated? Author ELDER General Goal - Patient schedules and keeps appointments with all recommended providers ACO Care Management On track(2024 10:14 AM CDT) Fidelina Barahona RN Note: Problem: Potential for medical complications and readmission if follow-up appointments are not scheduled Interventions: - Ensure all follow-up appointments are scheduled, all prescribed medications have been received. - Address any barriers for keeping scheduled appointment. - Coordinate with patient/caregiver(s) to ensure patient is able to keep scheduled appointment. - Emphasize importance of keeping scheduled appointments. - Identify and discuss questions for next provider visit. - Follow up with patient after scheduled appointment(s) to review any new orders or changes made to medication regimen. ELDER General Goal - Patient is knowledgeable about condition when worsening and how to respond ACO Care Management On track(2024 10:14 AM CDT) Fidelina Barahona RN Note: Problem: Knowledge deficit related to signs and symptoms of worsening condition Interventions: - Assess patient's level of understanding related to their condition(s), specific medications and self-management of their chronic conditions. - Send educational materials to patient related to their chronic condition, including signs and symptoms, self-management actions, and serious symptoms that require urgent medical intervention. - Assist patient/provider in developing an action plan for symptom management. - Review with patient weekly: s/s worsening condition, self-management actions to take, when to call CM or provider. Medical Devices Implanted Type Area Prototype Sewer Device Identifier Shelf Expiration Date Model / Serial / Lot Stent-05/04/2024 Implanted:2023 (Quantity not on file) Stent Brain Procedures Procedure Name Priority Date/Time Associated Diagnosis Comments XR CHEST PA LATERAL 2 VIEWS IP Routine 05/25/2025 8:46 AM CDT EGFR Timed 05/25/2025 4:56 AM CDT BASIC METABOLIC PANEL Timed 05/25/2025 4:56 AM CDT APTT Routine 05/25/2025 4:56 AM CDT PROTIME-INR Routine 05/25/2025 4:56 AM CDT CBC WITHOUT DIFFERENTIAL Routine 05/25/2025 4:56 AM CDT XR CHEST 1 VIEW IP Routine 05/24/2025 6:20 AM CDT EGFR Routine 05/24/2025 5:34 AM CDT BASIC METABOLIC PANEL Routine 05/24/2025 5:34 AM CDT PROTIME-INR Routine 05/24/2025 5:27 AM CDT APTT Routine 05/24/2025 5:27 AM CDT CBC WITHOUT DIFFERENTIAL Routine 05/24/2025 5:27 AM CDT POCT GLUCOSE DEVICE Routine 05/23/2025 7 :23 AM CDT XR CHEST 1 VIEW IP Routine 05/23/2025 6:14 AM CDT MAGNESIUM STAT 05/23/2025 5:46 AM CDT EGFR Timed 05/23/2025 5:46 AM CDT BASIC METABOLIC PANEL Timed 05/23/2025 5:46 AM CDT CBC WITHOUT DIFFERENTIAL Routine 05/23/2025 5:46 AM CDT ECG 12-LEAD Routine 05/23/2025 3:22 AM CDT POCT GLUCOSE DEVICE Routine 05/22/2025 8 :09 PM CDT POCT GLUCOSE DEVICE Routine 05/22/2025 5 :21 PM CDT POCT GLUCOSE DEVICE Routine 05/22/2025 12:08 PM CDT POCT GLUCOSE DEVICE Routine 05/22/2025 7 :34 AM CDT XR CHEST 1 VIEW IP Routine 05/22/2025 5:37 AM CDT EGFR Timed 05/22/2025 5:22 AM CDT BASIC METABOLIC PANEL Timed 05/22/2025 5:22 AM CDT CBC WITHOUT DIFFERENTIAL Routine 05/22/2025 5:22 AM CDT POCT GLUCOSE DEVICE Routine 05/21/2025 8 :04 PM CDT POCT GLUCOSE DEVICE Routine 05/21/2025 5 :30 PM CDT POCT GLUCOSE DEVICE Routine 05/21/2025 11:30 AM CDT POCT GLUCOSE DEVICE Routine 05/21/2025 7 :19 AM CDT XR CHEST 1 VIEW IP Routine 05/21/2025 6:22 AM CDT EGFR Timed 05/21/2025 2:59 AM CDT BASIC METABOLIC PANEL Timed 05/21/2025 2:59 AM CDT CALCIUM,IONIZED, WHOLE BLOOD Routine 05/21/2025 2:59 AM CDT MAGNESIUM Routine 05/21/2025 2:59 AM CDT CBC WITHOUT DIFFERENTIAL Routine 05/21/2025 2:59 AM CDT POCT GLUCOSE DEVICE Routine 05/20/2025 8 :34 PM CDT POCT GLUCOSE DEVICE Routine 05/20/2025 4 :48 PM CDT POCT GLUCOSE DEVICE Routine 05/20/2025 12:21 PM CDT ECG 12-LEAD STAT 05/20/2025 8:24 AM CDT CRITICAL CARE Routine 05/20/2025 7:45 AM CDT Coronary artery disease involving [place] coronary artery of [place] heart without angina pectoris POCT GLUCOSE DEVICE Routine 05/20/2025 7 :11 AM CDT XR CHEST 1 VIEW IP Routine 05/20/2025 6:35 AM CDT EGFR Timed 05/20/2025 2:14 AM CDT BASIC METABOLIC PANEL Timed 05/20/2025 2:14 AM CDT MAGNESIUM Routine 05/20/2025 2:14 AM CDT CBC WITHOUT DIFFERENTIAL Routine 05/20/2025 2:14 AM CDT CALCIUM,IONIZED, WHOLE BLOOD Routine 05/20/2025 2:00 AM CDT OXYHEMOGLOBIN, PULMONARY ARTERY Routine 05/20/2025 2:00 AM CDT EGFR Routine 05/19/2025 9:07 PM CDT MAGNESIUM Routine 05/19/2025 9:07 PM CDT BASIC METABOLIC PANEL Routine 05/19/2025 9:07 PM CDT TYPE AND SCREEN Timed 05/19/2025 9:06 PM CDT POCT GLUCOSE DEVICE Routine 05/19/2025 8 :48 PM CDT BLOOD GAS, ARTERIAL Routine 05/19/2025 7 :46 PM CDT CBC WITHOUT DIFFERENTIAL Timed 05/19/2025 6:05 PM CDT EGFR Timed 05/19/2025 6:02 PM CDT BLOOD GAS, ARTERIAL Routine 05/19/2025 6 :02 PM CDT CALCIUM,IONIZED, WHOLE BLOOD Timed 05/19/2025 6:02 PM CDT MAGNESIUM Timed 05/19/2025 6:02 PM CDT BASIC METABOLIC PANEL Timed 05/19/2025 6:02 PM CDT POCT GLUCOSE DEVICE Routine 05/19/2025 4 :25 PM CDT BLOOD GAS, ARTERIAL STAT 05/19/2025 2 :47 PM CDT POCT GLUCOSE DEVICE Routine 05/19/2025 2 :43 PM CDT SURGICAL PATHOLOGY Routine 05/19/2025 2: 00 PM CDT Coronary artery disease involving [place] coronary artery of [place] heart without angina pectoris CRITICAL CARE Routine 05/19/2025 1:58 PM CDT XR CHEST 1 VIEW ED Urgent/IP Urgent 05/19/2025 1:43 PM CDT EGFR STAT 05/19/2025 1:14 PM CDT APTT STAT 05/19/2025 1:14 PM CDT PROTIME-INR STAT 05/19/2025 1:14 PM CDT CBC WITHOUT DIFFERENTIAL STAT 05/19/2025 1:14 PM CDT BLOOD GAS, ARTERIAL STAT 05/19/2025 1 :14 PM CDT CALCIUM,IONIZED, WHOLE BLOOD STAT 05/19/2025 1:14 PM CDT MAGNESIUM STAT 05/19/2025 1:14 PM CDT BASIC METABOLIC PANEL STAT 05/19/2025 1:14 PM CDT POCT GLUCOSE DEVICE Routine 05/19/2025 1 :05 PM CDT POC BLOOD GAS AND CHEMISTRIES, ARTERIAL Routine 05/19/2025 11:49 AM CDT POCT ACTIVATED CLOTTING TIME, HIGH RANGE Routine 05/19/2025 11:46 AM CDT POC BLOOD GAS AND CHEMISTRIES, ARTERIAL Routine 05/19/2025 11:16 AM CDT POCT ACTIVATED CLOTTING TIME, HIGH RANGE Routine 05/19/2025 11:16 AM CDT PLATELET COUNT STAT 05/19/2025 11:08 AM CDT POC BLOOD GAS AND CHEMISTRIES, ARTERIAL Routine 05/19/2025 10:42 AM CDT POCT ACTIVATED CLOTTING TIME, HIGH RANGE Routine 05/19/2025 10:42 AM CDT POCT ACTIVATED CLOTTING TIME, HIGH RANGE Routine 05/19/2025 9:49 AM CDT POC BLOOD GAS AND CHEMISTRIES, ARTERIAL Routine 05/19/2025 8:53 AM CDT POCT ACTIVATED CLOTTING TIME, HIGH RANGE Routine 05/19/2025 8:50 AM CDT ANESTHESIA RAVI Routine 05/19/2025 8:46 AM CDT UT AN CENTRAL LINE MULTI LUMEN Routine 05/19/2025 8:44 AM CDT ANESTHESIA CENTRAL VENOUS LINE PLACEMENT Routine 05/19/2025 8:44 AM CDT ANESTHESIA ARTERIAL LINE PLACEMENT Routine 05/19/2025 8:44 AM CDT UT AN ELECTIVE ENDOTRACHEAL AIRWAY Routine 05/19/2025 8:42 AM CDT CORONARY ARTERY BYPASS GRAFT. 05/19/2025 8:09 AM CDT Coronary artery disease involving [place] coronary artery of [place] heart without angina pectoris RAVI ADD-ON FOR OR Routine 05/19/2025 7:0 4 AM CDT POTASSIUM, WHOLE BLOOD STAT 6:43 AM CDT PREPARE RBC STAT 05/19/2025 6:24 AM CDT ECG 12-LEAD Routine 05/08/2025 11:32 AM CDT Coronary artery disease involving [place] coronary artery of [place] heart without angina pectoris XR CHEST PA LATERAL 2 VIEWS Schedule Routine, Read Routine (OP Routine) 05/08/2025 11:31 AM CDT Coronary artery disease involving [place] coronary artery of [place] heart without angina pectoris EGFR Routine 05/08/2025 11:11 AM CDT Coronary artery disease involving [place] coronary artery of [place] heart without angina pectoris BASIC METABOLIC PANEL Routine 05/08/2025 11:11 AM CDT Coronary artery disease involving [place] coronary artery of [place] heart without angina pectoris PROTIME-INR Routine 05/08/2025 11:11 AM CDT Coronary artery disease involving [place] coronary artery of [place] heart without angina pectoris APTT Routine 05/08/2025 11:11 AM CDT Coronary artery disease involving [place] coronary artery of [place] heart without angina pectoris Shortness of breath CBC WITHOUT DIFFERENTIAL Routine 05/08/2025 11:11 AM CDT Coronary artery disease involving [place] coronary artery of [place] heart without angina pectoris TYPE AND SCREEN Routine 05/08/2025 11:11 AM CDT Coronary artery disease involving [place] coronary artery of [place] heart without angina pectoris URINALYSIS AND REFLEX TO MICROSCOPIC AND CULTURE Routine 05/08/2025 11:11 AM CDT Coronary artery disease involving [place] coronary artery of [place] heart without angina pectoris XR CHEST 1 VIEW ED Urgent/IP Urgent 04/09/2025 2:50 PM CDT XR CHEST 1 VIEW Schedule Routine, Read Routine (OP Routine) 04/09/2025 2:31 PM CDT Lung nodule FL FLUOROSCOPY < 1 HOUR Schedule Routine, Read Routine (OP Routine) 04/09/2025 2:30 PM CDT Lung nodule MYCOBACTERIOLOGY AFB CULTURE AND ACID-FAST STAIN Routine 04/09/2025 2:24 PM CDT MYCOLOGY (FUNGAL) CULTURE Routine 04/09/2025 2:24 PM CDT AEROBIC CULTURE AND GRAM STAIN Routine 04/09/2025 2:24 PM CDT MYCOLOGY (FUNGAL) CULTURE Routine 04/09/2025 2:24 PM CDT AEROBIC CULTURE AND GRAM STAIN Routine 04/09/2025 2:24 PM CDT MYCOBACTERIOLOGY AFB CULTURE AND ACID-FAST STAIN Routine 04/09/2025 2:24 PM CDT UT AN ELECTIVE ENDOTRACHEAL AIRWAY Routine 04/09/2025 1:11 PM CDT BRONCHOSCOPY NEEDLE ASPIRATION - EACH ADDITIONAL 04/09/2025 12:38 PM CDT Lung nodule ENDO ADD ON BRONCHOSCOPY WITH BIOPSY 04/09/2025 12:38 PM CDT Lung nodule ENDO ADD ON BRONCHOSCOPY WITH LAVAGE 04/09/2025 12:38 PM CDT Lung nodule ENDO ADD ON BRONCHOSCOPY NEEDLE ASPIRATION 04/09/2025 12:38 PM CDT Lung nodule BRONCHOSCOPY 04/09/2025 12:38 PM CDT Lung nodule BRONCHOSOPY WITH ENDOBRONCHIAL ULTRASOUND WITH GUIDE<=2 LYMPH NODE 04/09/2025 12:38 PM CDT Lung nodule BRONCHOSCOPY 04/09/2025 12:28 PM CDT SURGICAL PATHOLOGY Routine 04/09/2025 9: 31 AM CDT Lung nodule CYTOLOGY Routine 04/09/2025 12:00 AM CDT CYTOLOGY Routine 04/09/2025 12:00 AM CDT T-SPOT.TB Routine 04/01/2025 10:19 AM CDT PET/CT FDG SKULL TO THIGH Schedule Routine, Read Routine (OP Routine) 03/26/2025 11:53 AM CDT Lung nodules ECG 12-LEAD Routine 03/24/2025 9:45 AM CDT Coronary artery disease of [place] heart with stable angina pectoris, unspecified vessel or lesion type XR CHEST PA LATERAL 2 VIEWS Schedule Routine, Read Routine (OP Routine) 03/24/2025 9:29 AM CDT Coronary artery disease of [place] heart with stable angina pectoris, unspecified vessel or lesion type EGFR Routine 03/24/2025 9:16 AM CDT Encounter for preadmission testing DIFFERENTIAL AUTO Routine 03/24/2025 9:1 6 AM CDT Encounter for preadmission testing TYPE AND SCREEN Routine 03/24/2025 9:16 AM CDT Encounter for preadmission testing CBC WITH AUTO DIFFERENTIAL Routine 03/24/2025 9:16 AM CDT Encounter for preadmission testing APTT Routine 03/24/2025 9:16 AM CDT Encounter for preadmission testing Other specified coagulation defects PROTIME-INR Routine 03/24/2025 9:16 AM CDT Encounter for preadmission testing Other specified coagulation defects BASIC METABOLIC PANEL Routine 03/24/2025 9:16 AM CDT Encounter for preadmission testing URINALYSIS AND REFLEX TO MICROSCOPIC AND CULTURE Routine 03/24/2025 9:16 AM CDT Encounter for preadmission testing CTA HEAD NECK W WO CONTRAST Schedule Routine, Read Routine (OP Routine) 03/19/2025 3:12 PM CDT NSTEMI (non-ST elevated myocardial infarction) (HCC) Syncope, unspecified syncope type CT CHEST WO CONTRAST Schedule Routine, Read Routine (OP Routine) 03/19/2025 2:59 PM CDT NSTEMI (non-ST elevated myocardial infarction) (HCC) Syncope, unspecified syncope type HEPATITIS C ANTIBODY Routine 12/11/2024 11:11 AM CDT Need for hepatitis B screening test PSA SCREEN Routine 12/11/2024 11:11 AM CDT Prostate cancer screening COLONOSCOPY 03/13/2023 7:08 AM CDT from Last 3 Months or Most Recently Relevant to Health Maintenance Results * XR Chest PA Lateral 2 Views (05/25/2025 8:46 AM CDT) Anatomical Region Laterality Modality Body, Chest N/A Computed Radiogr aphy 05/25/2025 2:10 PM CDT Impressions 05/25/2025 2:10 PM CDT No failure. Electronically signed by: Halley Moreno M.D. Narrative 05/25/2025 2:10 PM CDT EXAMINATION: XR CHEST PA LATERAL 2 VIEWS HISTORY: The patient is a 69-year-old male who has had bypass surgery. Comparison is made with the previous study dated 05/24/2025. TECHNIQUE: AP and lateral view of the chest. FINDINGS: There has been interval removal of the left thoracostomy tube. There is no pneumothorax seen. Heart not enlarged. No failure. The tip of a retracted Wickenburg-Luke catheter is in the superior vena cava. Procedure Note Halley Moreno MD - 05/25/2025 EXAMINATION: XR CHEST PA LATERAL 2 VIEWS HISTORY: The patient is a 69-year-old male who has had bypass surgery. Comparison is made with the previous study dated 05/24/2025. TECHNIQUE: AP and lateral view of the chest. FINDINGS: There has been interval removal of the left thoracostomy tube. There is no pneumothorax seen. Heart not enlarged. No failure. The tip of a retracted Wickenburg-Luke catheter is in the superior vena cava. IMPRESSION: No failure. Electronically signed by: Halley Moreno M.D. 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 73 m2 Comment: Interpretive Data Reference Interval Normal >/= 90 mL/min/1.73m2 Mildly decreased* 60 - 89 mL/min/1.73m2 Mildly to moderately decreased 45 - 59 mL/min/1.73m2 Moderately to severely decreased 30 - 44 mL/min/1.73m2 Severely decreased 15 - 29 mL/min/1.73m2 Kidney Failure < 15 mL/min/1.73m2 *Relative to young adult level Estimated glomerular filtration rate is determined by the 2020 CKD-EPI equation recommended by the National Kidney Foundation (A Unifying Approach to GFR Estimation: Recommendations of the NKF-ASK Task Force on Reassessing the Inclusion of Race in Diagnosing Kidney Disease, JASAdam 2020). The CKD-EPI equation should not be used for patients with unstable renal function and has not been validated in children and those over 70. Current interpretive data was last reviewed 2021. Blood 05/25/2025 4:56 AM CDT 05/25/2025 5:04 AM CDT Jacoby Lantigua MD LAB BLOOD ORDERABLES Final R esult Performing Organization Address [facility] Co de Phone Number PEPE [phone] [address] [place] [address] * (ABNORMAL) aPTT (05/25/2025 4:56 AM CDT) aPTT 25(L) 26 - 38 sec Comment: Interpretive Data Heparin therapeutic range: 66.0 - 100.0 seconds. Range based on correlation with therapeutic heparin activity range of 0.3 - 0.7 Units/mL. Current interpretive data was last revised on 2023. Blood 05/25/2025 4:56 AM CDT 05/25/2025 5:04 AM CDT Rick Camilo NP LAB BLOOD ORDERABLES Final Result Performing Organization Address [facility] Co de Phone Number PEPE [phone] [address] [employer] [place], [place] [phone] * Protime-INR (05/25/2025 4:56 AM CDT) PT 12.1 10.2 - 13.5 sec INR 1.07 0.90 - 1.20 PEPE RAMACHANDRAN Comment: Interpretive data Oral anticoagulant therapeutic ranges: Venous thromboembolism prophylaxis or treatment: 2.0-3.0 CARDIOLOGY Standard range: 2.0-3.0 High-intensity range: 2.5-3.5 Refer to indication-specific guidelines for appropriate target ranges for prosthetic heart valve replacement. Current interpretive data was last revised on 2019. Blood 05/25/2025 4:56 AM CDT 05/25/2025 5:04 AM CDT us Rick Camilo NP LAB BLOOD ORDERABLES Final Result Performing Organization Address City/[facility]/ZIP Co de Phone Number PEPE RAMACHANDRAN [phone] [place] [employer] [place] [address] * (ABNORMAL) CBC without differential (05/25/2025 4:56 AM CDT) WBC 7.95 3.80 - 9.90 K/cumm Hgb 10.1(L) 13.0 - 17.5 g/dL [facility] Hct 30.7(L) 38.9 - 50.3 % [facility] [facility] Plt 242 150 - 400 K/cumm [facility] MPV 9.5 9.1 - 12.3 fL [facility] RBC 3.21(L) 4.30 - 5.80 M/cumm [facility] MCV 95.6 81.3 - 96.4 fL [facility] MCH 31.5 27.1 - 33.3 pg [facility] MCHC 32.9 32.3 - 35.7 g/dL [facility] CH RDW CV 13.1 11.1 - 14.9 % [facility] RDW SD 45.6 35.7 - 48.1 fL [facility] NRBC abs 0.00 0.00 - 0.01 K/cumm [facility] Blood 05/25/2025 4:56 AM CDT 05/25/2025 5:03 AM CDT us Jacoby Lantigua MD LAB BLOOD ORDERABLES Final R esult Performing Organization Address City/[facility]/ZIP Co de Phone Number PEPE RAMACHANDRAN [address] Department of [employer] [place], [place] [id number] * (ABNORMAL) Basic metabolic panel (05/25/2025 4:56 AM CDT) Pathologist [facility] Sodium 138 135 - 145 mmol/L Potassium, pl 4.3 3.3 - 4.9 mmol/L [facility] Chloride 103 97 - 110 mmol/L [facility] CO2 26 22 - 32 mmol/L [facility] Anion gap 9 2 - 15 mmol/L [facility] BUN 14 6 - 25 mg/dL [facility] Creatinine 0.80 0.80 - 1.30 mg/dL [facility] Glucose 116 70 - 199 mg/dL [facility] Comment: Interpretive Data Fasting glucose >/= 126 mg/dl is diagnostic for diabetes. Fasting is defined as no caloric intake for at least 8 hours. Fasting glucose between 100 mg/dl to 125 mg/dl is diagnostic of prediabetes. In a patient with classic symptoms of hyperglycemia or hyperglycemic crisis, a random glucose >/= 200 mg/dl is diagnostic for diabetes. In the absence of unequivocal hyperglycemia, results should be confirmed by repeat testing. The classification and Diagnosis of Diabetes Diabetes Care 2021; 46: S19-S40. Current interpretive data was last revised 2022. Calcium 8.3(L) 8.5 - 10.3 mg/dL [facility] Blood 05/25/2025 4:56 AM CDT 05/25/2025 5:04 AM CDT Jacoby Lantigua MD LAB BLOOD ORDERABLES Final R esult [facility] [id number] [address] Department of Laboratories [place], [place] [id number] * XR Chest 1 View - in AM (05/24/2025 6:20 AM CDT) Anatomical Region Laterality Modality Body, Chest N/A Computed Radiogr aphy 05/24/2025 7:31 AM CDT Impressions 05/24/2025 7:31 AM CDT 1. Removal of right chest tube without large pneumothorax. 2. Slight improvement in pulmonary vascular congestion since the prior exam. Electronically signed by: Dwaine Baxter M.D. Narrative 05/24/2025 7:31 AM CDT EXAMINATION: XR CHEST 1 VIEW HISTORY: Postop CABG COMPARISON: Multiple chest radiograph most recently 05/23/2025 FINDINGS: Sternotomy hardware present. Left chest tube remains in place. Right-sided chest tube is no longer present. No large pneumothorax. Right internal jugular central venous catheter and sheath remain present. Heart size unchanged. There is left greater than right basilar atelectasis. Pulmonary vascularity is somewhat indistinct, slightly improved from prior exam. Bony and soft tissues unchanged. Procedure Note Dwaine Baxter III, MD - 05/24/2025 EXAMINATION: XR CHEST 1 VIEW HISTORY: Postop CABG COMPARISON: Multiple chest radiograph most recently 05/23/2025 FINDINGS: Sternotomy hardware present. Left chest tube remains in place. Right-sided chest tube is no longer present. No large pneumothorax. Right internal jugular central venous catheter and sheath remain present. Heart size unchanged. There is left greater than right basilar atelectasis. Pulmonary vascularity is somewhat indistinct, slightly improved from prior exam. Bony and soft tissues unchanged. IMPRESSION: 1. Removal of right chest tube without large pneumothorax. 2. Slight improvement in pulmonary vascular congestion since the prior exam. Electronically signed by: Dwaine Baxter M.D. Rick Camilo [employer] IMG XR PROCEDURES Final Res ult * eGFR (05/24/2025 5:34 AM CDT) eGFR >90 >=60 mL/min/1. 73 m2 Comment: Interpretive Data Reference Interval Normal >/= 90 mL/min/1.73m2 Mildly decreased* 60 - 89 mL/min/1.73m2 Mildly to moderately decreased 45 - 59 mL/min/1.73m2 Moderately to severely decreased 30 - 44 mL/min/1.73m2 Severely decreased 15 - 29 mL/min/1.73m2 Kidney Failure < 15 mL/min/1.73m2 *Relative to young adult level Estimated glomerular filtration rate is determined by the 2020 CKD-EPI equation recommended by the National Kidney Foundation (A Unifying Approach to GFR Estimation: Recommendations of the NKF-ASK Task Force on Reassessing the Inclusion of Race in Diagnosing Kidney Disease, JASN 2020). The CKD-EPI equation should not be used for patients with unstable renal function and has not been validated in children and those over 70. Current interpretive data was last reviewed 2021. Blood 05/24/2025 5:34 AM CDT 05/24/2025 5:34 AM CDT Jacoby Lantigua MD LAB BLOOD ORDERABLES Final R esult [facility] [address] [address] [place] [employer] [place] [address] * (ABNORMAL) Basic metabolic panel (05/24/2025 5:34 AM CDT) Pathologist [facility] Sodium 137 135 - 145 mmol/L Potassium, pl 4.2 3.3 - 4.9 mmol/L [facility] Chloride 102 97 - 110 mmol/L [facility] CO2 25 22 - 32 mmol/L [facility] Anion gap 10 2 - 15 mmol/L [facility] BUN 16 6 - 25 mg/dL [facility] Creatinine 0.76(L) 0.80 - 1.30 mg/dL [facility] Glucose 126 70 - 199 mg/dL [facility] Comment: Interpretive Data Fasting glucose >/= 126 mg/dl is diagnostic for diabetes. Fasting is defined as no caloric intake for at least 8 hours. Fasting glucose between 100 mg/dl to 125 mg/dl is diagnostic of prediabetes. In a patient with classic symptoms of hyperglycemia or hyperglycemic crisis, a random glucose >/= 200 mg/dl is diagnostic for diabetes. In the absence of unequivocal hyperglycemia, results should be confirmed by repeat testing. The classification and Diagnosis of Diabetes Diabetes Care 202; 46: S19-S40. Current interpretive data was last revised 2022. Calcium 8.4(L) 8.5 - 10.3 mg/dL [facility] Blood 05/24/2025 5:34 AM CDT 05/24/2025 5:34 AM CDT Jacoby Lantigua MD LAB BLOOD ORDERABLES Final R esult [facility] [address] [address] [place] [address] * (ABNORMAL) aPTT (05/24/2025 5:27 AM CDT) aPTT 20(L) 26 - 38 sec Comment: Interpretive Data Heparin therapeutic range: 66.0 - 100.0 seconds. Range based on correlation with therapeutic heparin activity range of 0.3 - 0.7 Units/mL. Current interpretive data was last revised on 2023. Blood 05/24/2025 5:27 AM CDT 05/24/2025 5:34 AM CDT Jacoby Lantigua MD LAB BLOOD ORDERABLES Final R [facility] Performing Organization Address [facility] Co de Phone Number PEPE [address] [address] [employer] [place], [place] [phone] * Protime-INR (05/24/2025 5:27 AM CDT) PT 12.3 10.2 - 13.5 sec INR 1.09 0.90 - 1.20 [facility] Comment: Interpretive data Oral anticoagulant therapeutic ranges: Venous thromboembolism prophylaxis or treatment: 2.0-3.0 CARDIOLOGY Standard range: 2.0-3.0 High-intensity range: 2.5-3.5 Refer to indication-specific guidelines for appropriate target ranges for prosthetic heart valve replacement. Current interpretive data was last revised on 2019. Blood 05/24/2025 5:27 AM CDT 05/24/2025 5:34 AM CDT Jacoby Lantigua MD LAB BLOOD ORDERABLES Final R esult [address] [address] [address] [employer] [place], [place] [phone] * (ABNORMAL) CBC without differential (05/24/2025 5:27 AM CDT) WBC 7.95 3.80 - 9.90 K/cumm Hgb 9.4(L) 13.0 - 17.5 g/dL [facility] Hct 29.2(L) 38.9 - 50.3 % [facility] Plt 205 150 - 400 K/cumm [facility] MPV 9.5 9.1 - 12.3 fL [facility] RBC 3.09(L) 4.30 - 5.80 M/cumm [facility] MCV 94.5 81.3 - 96.4 fL [facility] MCH 30.4 27.1 - 33.3 pg [facility] MCHC 32.2(L) 32.3 - 35.7 g/dL [facility] RDW CV 13.0 11.1 - 14.9 % [facility] CH RDW SD 44.5 35.7 - 48.1 fL [facility] NRBC abs 0.02(H) 0.00 - 0.01 K/cumm [facility] Blood 05/24/2025 5:27 AM CDT 05/24/2025 5:34 AM CDT Jacoby Lantigua MD LAB BLOOD ORDERABLES Final R esult [facility] [address] [address] [address] [place] [employer] [place] [address] * POCT glucose (05/23/2025 7:23 AM CDT) Glucose, POC 132 70 - 199 mg/dL Blood 05/23/2025 7:23 AM CDT 05/23/2025 7:23 AM CDT Jacoby Lantigua MD LAB POCT ORDERABLES - DEVICE Final Result Performing Organization Address [facility]/State/ZIP Co de Phone Number PAULINAMARY RAMACHANDRAN [address] [address] Department [place] [place] [address] * XR Chest 1 View - in AM (05/23/2025 6:14 AM CDT) Anatomical Region Laterality Modality Body, Chest N/A Computed Radiogr aphy 05/23/2025 7:06 AM CDT Impressions 05/23/2025 7:06 AM CDT Persistent pulmonary vascular congestion with slight increase in reticular markings in the right lung which may represent layering pleural fluid or asymmetric pulmonary edema. Electronically signed by: Dwaine Baxter M.D. Narrative 05/23/2025 7:06 AM CDT EXAMINATION: XR CHEST 1 VIEW HISTORY: Post CABG COMPARISON: 05/22/2025, 05/21/2025, 05/20/2025 FINDINGS: Sternotomy hardware remains present. Right internal jugular sheath remains in place with tip in the SVC. Bilateral chest tubes in place. Heart size unchanged. There is persistent pulmonary vascular congestion. Aorta tortuous. Asymmetric opacities in the right lung present, similar to slightly increased from prior exam. No large pneumothorax. Left lung aeration is unchanged. Bony and soft tissues unchanged. Procedure Note Dwaine Baxter III, MD - 05/23/2025 EXAMINATION: XR CHEST 1 VIEW HISTORY: Post CABG COMPARISON: 05/22/2025, 05/21/2025, 05/20/2025 FINDINGS: Sternotomy hardware remains present. Right internal jugular sheath remains in place with tip in the SVC. Bilateral chest tubes in place. Heart size unchanged. There is persistent pulmonary vascular congestion. Aorta tortuous. Asymmetric opacities in the right lung present, similar to slightly increased from prior exam. No large pneumothorax. Left lung aeration is unchanged. Bony and soft tissues unchanged. IMPRESSION: Persistent pulmonary vascular congestion with slight increase in reticular markings in the right lung which may represent layering pleural fluid or asymmetric pulmonary edema. Electronically signed by: Dwaine Baxter M.D. Rick Camilo [employer] IMG XR PROCEDURES Final Res ult * eGFR (05/23/2025 5:46 AM CDT) eGFR >90 >=60 mL/min/1. 73 m2 Comment: Interpretive Data Reference Interval Normal >/= 90 mL/min/1.73m2 Mildly decreased* 60 - 89 mL/min/1.73m2 Mildly to moderately decreased 45 - 59 mL/min/1.73m2 Moderately to severely decreased 30 - 44 mL/min/1.73m2 Severely decreased 15 - 29 mL/min/1.73m2 Kidney Failure < 15 mL/min/1.73m2 *Relative to young adult level Estimated glomerular filtration rate is determined by the 2020 CKD-EPI equation recommended by the National Kidney Foundation (A Unifying Approach to GFR Estimation: Recommendations of the NKF-ASK Task Force on Reassessing the Inclusion of Race in Diagnosing Kidney Disease, JASN 2020). The CKD-EPI equation should not be used for patients with unstable renal function and has not been validated in children and those over 70. Current interpretive data was last reviewed 2021. Blood 05/23/2025 5:46 AM CDT 05/23/2025 6:26 AM CDT us Jacoby Lantigua MD LAB BLOOD ORDERABLES Final R esult [facility] [address] [address] [place] [address] * (ABNORMAL) CBC without differential (05/23/2025 5:46 AM CDT) Pathologist [facility] WBC 7.36 3.80 - 9.90 K/cumm Hgb 10.5(L) 13.0 - 17.5 g/dL [facility] Hct 31.8(L) 38.9 - 50.3 % [facility] Plt 202 150 - 400 K/cumm [facility] MPV 10.0 9.1 - 12.3 fL [facility] RBC 3.45(L) 4.30 - 5.80 M/cumm [facility] MCV 92.2 81.3 - 96.4 fL [facility] MCH 30.4 27.1 - 33.3 pg [facility] MCHC 33.0 32.3 - 35.7 g/dL [facility] RDW CV 13.0 11.1 - 14.9 % [facility] RDW SD 43.5 35.7 - 48.1 fL [facility] NRBC abs 0.00 0.00 - 0.01 K/cumm [facility] Blood 05/23/2025 5:46 AM CDT 05/23/2025 6:25 AM CDT Jacoby Lantigua MD LAB BLOOD ORDERABLES Final R esult Performing Organization Address City/[facility]/ZIP Co de Phone Number PEPE RAMACHANDRAN [address] [address] [place] [address] * Magnesium (05/23/2025 5:46 AM CDT) Magnesium 1.8 1.4 - 2.5 mg/dL Blood 05/23/2025 5:46 AM CDT 05/23/2025 8:56 AM CDT Jacoby Lantigua MD LAB BLOOD ORDERABLES Final R [facility] Performing Organization Address [facility] Co de Phone Number PEPE RAMACHANDRAN [address] [address] [place] [address] * (ABNORMAL) Basic metabolic panel (05/23/2025 5:46 AM CDT) Sodium 138 135 - 145 mmol/L Potassium, pl 3.4 3.3 - 4.9 mmol/L [facility] Chloride 101 97 - 110 mmol/L [facility] CO2 27 22 - 32 mmol/L [facility] Anion gap 10 2 - 15 mmol/L [facility] BUN 16 6 - 25 mg/dL [facility] Creatinine 0.75(L) 0.80 - 1.30 mg/dL [facility] Glucose 141 70 - 199 mg/dL [facility] Comment: Interpretive Data Fasting glucose >/= 126 mg/dl is diagnostic for diabetes. Fasting is defined as no caloric intake for at least 8 hours. Fasting glucose between 100 mg/dl to 125 mg/dl is diagnostic of prediabetes. In a patient with classic symptoms of hyperglycemia or hyperglycemic crisis, a random glucose >/= 200 mg/dl is diagnostic for diabetes. In the absence of unequivocal hyperglycemia, results should be confirmed by repeat testing. The classification and Diagnosis of Diabetes Diabetes Care 2021; 46: S19-S40. Current interpretive data was last revised 2022. Calcium 8.7 8.5 - 10.3 mg/dL [facility] Blood 05/23/2025 5:46 AM CDT 05/23/2025 6:26 AM CDT Jacoby Lantigua MD LAB BLOOD ORDERABLES Final R esult Performing Organization Address [facility] de Phone Number PEPE RAMACHANDRAN [address] Department [place] [employer] [place] [address] * ECG 12 lead (05/23/2025 3:22 AM CDT) 05/23/2025 3:22 AM CDT Narrative [facility] - 05/23/2025 10:38 AM CDT Vent Rate: 121 bpm RR Interval: 495 msec UT Interval: 0 msec QRS Duration: 126 msec QT Interval: 360 msec QTC Interval: 432 msec P-R-T Browder: 0 - -26 - 32 degrees IMPRESSION: ATRIAL FIBRILLATION WITH RAPID VENTRICULAR RESPONSE POSSIBLE INFERIOR MYOCARDIAL INFARCTION , PROBABLY OLD ABNORMAL RHYTHM ECG ATRIAL FIBRILLATION IS NEW Electronically Signed By: Niecy White MD Jacoby Lantigua MD ECG ORDERABLES Final Result Performing Organization Address [facility] de Phone Number [facility] * POCT glucose (05/22/2025 8:09 PM CDT) Glucose, POC 133 70 - 199 mg/dL Blood 05/22/2025 8:09 PM CDT 05/22/2025 8:09 PM CDT Jacoby Lantigua MD LAB POCT ORDERABLES - DEVICE Final Result Performing Organization Address [facility] Co de Phone Number PEPE RAMACHANDRAN [address] [address] Department [place] [employer] [place] [address] * POCT glucose (05/22/2025 5:21 PM CDT) Glucose, POC 116 70 - 199 mg/dL Blood 05/22/2025 5:21 PM CDT 05/22/2025 5:21 PM CDT us Jacoby Lantigua MD LAB POCT ORDERABLES - DEVICE Final Result Performing Organization Address [facility] Co de Phone Number PEPE RAMACHANDRAN [address] [address] [facility] [employer] [place] [address] * POCT glucose (05/22/2025 12:08 PM CDT) Glucose, POC 142 70 - 199 mg/dL Blood 05/22/2025 12:0 8 PM CDT 05/22/2025 12:08 PM CDT Jacoby Lantigua MD LAB POCT ORDERABLES - DEVICE Final Result Performing Organization Address [facility] de Phone Number PEPE RAMACHANDRAN [address] [address] [facility] [employer] [place] [address] * POCT glucose (05/22/2025 7:34 AM CDT) Glucose, POC 120 70 - 199 mg/dL Blood 05/22/2025 7:34 AM CDT 05/22/2025 7:34 AM CDT Jacoby Lantigua MD LAB POCT ORDERABLES - DEVICE Final Result Performing Organization Address [facility] de Phone Number PEPE RAMACHANDRAN [address] [address] [facility] [employer] [place] [address] * XR Chest 1 View - in AM (05/22/2025 5:37 AM CDT) Anatomical Region Laterality Modality Body, Chest N/A Computed Radiogr aphy 05/22/2025 9:19 AM CDT Impressions 05/22/2025 9:19 AM CDT No active disease. Electronically signed by: Halley Moreno M.D. Narrative 05/22/2025 9:19 AM CDT EXAMINATION: XR CHEST 1 VIEW HISTORY: The patient is a 69-year-old male who has had bypass surgery. Comparison made with the previous study dated 05/21/2025. TECHNIQUE: AP portable view of the chest. FINDINGS: Bilateral thoracostomy tubes in situ. The tip of the retracted Wickenburg-Luke catheter is in the superior vena cava. Heart not enlarged. No failure. No active infiltrate. Procedure Note Halley Moreno MD - 05/22/2025 EXAMINATION: XR CHEST 1 VIEW HISTORY: The patient is a 69-year-old male who has had bypass surgery. Comparison made with the previous study dated 05/21/2025. TECHNIQUE: AP portable view of the chest. FINDINGS: Bilateral thoracostomy tubes in situ. The tip of the retracted Wickenburg-Luke catheter is in the superior vena cava. Heart not enlarged. No failure. No active infiltrate. IMPRESSION: No active disease. Electronically signed by: Halley Moreno M.D. us Rick Camilo [employer] IMG XR PROCEDURES Final Res ult * eGFR (05/22/2025 5:22 AM CDT) eGFR >90 >=60 mL/min/1. 73 m2 Comment: Interpretive Data Reference Interval Normal >/= 90 mL/min/1.73m2 Mildly decreased* 60 - 89 mL/min/1.73m2 Mildly to moderately decreased 45 - 59 mL/min/1.73m2 Moderately to severely decreased 30 - 44 mL/min/1.73m2 Severely decreased 15 - 29 mL/min/1.73m2 Kidney Failure < 15 mL/min/1.73m2 *Relative to young adult level Estimated glomerular filtration rate is determined by the 2020 CKD-EPI equation recommended by the National Kidney Foundation (A Unifying Approach to GFR Estimation: Recommendations of the NKF-ASK Task Force on Reassessing the Inclusion of Race in Diagnosing Kidney Disease, JASN 202). The CKD-EPI equation should not be used for patients with unstable renal function and has not been validated in children and those over 70. Current interpretive data was last reviewed 2021. Blood 05/22/2025 5:22 AM CDT 05/22/2025 5:36 AM CDT us Jacoby Lantigua MD LAB BLOOD ORDERABLES Final R esult Performing Organization Address [facility] Co de Phone Number PEPE RAMACHANDRAN [address] Department [place] [employer] [place] [address] * (ABNORMAL) CBC without differential (05/22/2025 5:22 AM CDT) WBC 9.39 3.80 - 9.90 K/cumm Hgb 9.8(L) 13.0 - 17.5 g/dL [facility] Hct 30.0(L) 38.9 - 50.3 % [facility] Plt 150 150 - 400 K/cumm [facility] MPV 10.1 9.1 - 12.3 fL [facility] RBC 3.18(L) 4.30 - 5.80 M/cumm [facility] MCV 94.3 81.3 - 96.4 fL [facility] MCH 30.8 27.1 - 33.3 pg [facility] MCHC 32.7 32.3 - 35.7 g/dL [facility] RDW CV 12.7 11.1 - 14.9 % [facility] RDW SD 44.1 35.7 - 48.1 fL [facility] NRBC abs 0.00 0.00 - 0.01 K/cumm [facility] Blood 05/22/2025 5:22 AM CDT 05/22/2025 5:36 AM CDT Jacoby Lantigua MD LAB BLOOD ORDERABLES Final R esult Performing Organization Address [facility] Co de Phone Number PEPE RAMACHANDRAN [address] [address] Department [place] [employer] [place] [address] * (ABNORMAL) Basic metabolic panel (05/22/2025 5:22 AM CDT) Sodium 138 135 - 145 mmol/L Potassium, pl 4.2 3.3 - 4.9 mmol/L [facility] Chloride 102 97 - 110 mmol/L [facility] CO2 25 22 - 32 mmol/L [facility] Anion gap 11 2 - 15 mmol/L [facility] BUN 16 6 - 25 mg/dL [facility] Creatinine 0.78(L) 0.80 - 1.30 mg/dL [facility] Glucose 125 70 - 199 mg/dL [facility] Comment: Interpretive Data Fasting glucose >/= 126 mg/dl is diagnostic for diabetes. Fasting is defined as no caloric intake for at least 8 hours. Fasting glucose between 100 mg/dl to 125 mg/dl is diagnostic of prediabetes. In a patient with classic symptoms of hyperglycemia or hyperglycemic crisis, a random glucose >/= 200 mg/dl is diagnostic for diabetes. In the absence of unequivocal hyperglycemia, results should be confirmed by repeat testing. The classification and Diagnosis of Diabetes Diabetes Care 2021; 46: S19-S40. Current interpretive data was last revised 2022. Calcium 8.3(L) 8.5 - 10.3 mg/dL [facility] Blood 05/22/2025 5:22 AM CDT 05/22/2025 5:36 AM CDT Jacoby Lantigua MD LAB BLOOD ORDERABLES Final R esult Performing Organization Address City/[facility] Co de Phone Number [facility] [address] [place] [address] * POCT glucose (05/21/2025 8:04 PM CDT) Glucose, POC 132 70 - 199 mg/dL Blood 05/21/2025 8:04 PM CDT 05/21/2025 8:04 PM CDT Jacoby Lantigua MD LAB POCT ORDERABLES - DEVICE Final Result Performing Organization Address [facility] Co de Phone Number [facility] [address] [address] [place] [address] * POCT glucose (05/21/2025 5:30 PM CDT) Glucose, POC 137 70 - 199 mg/dL Blood 05/21/2025 5:30 PM CDT 05/21/2025 5:30 PM CDT Jacoby Lantigua MD LAB POCT ORDERABLES - DEVICE Final Result Performing Organization Address [facility]/ZIP Co de Phone Number PEPE RAMACHANDRAN [address] [address] [facility] [employer] [place] [address] * POCT glucose (05/21/2025 11:30 AM CDT) Glucose, POC 169 70 - 199 mg/dL Blood 05/21/2025 11:3 0 AM CDT 05/21/2025 11:30 AM CDT Jacoby Lantigua MD LAB POCT ORDERABLES - DEVICE Final Result Performing Organization Address [facility] Co de Phone Number PEPE RAMACHANDRAN [address] [facility] [employer] [place] [address] * POCT glucose (05/21/2025 7:19 AM CDT) Glucose, POC 151 70 - 199 mg/dL Blood 05/21/2025 7:19 AM CDT 05/21/2025 7:19 AM CDT Jacoby Lantigua MD LAB POCT ORDERABLES - DEVICE Final Result Performing Organization Address [facility] Co de Phone Number PEPE RAMACHANDRAN [address] [address] Department [employer] [place] [address] * XR Chest 1 View - in AM (05/21/2025 6:22 AM CDT) Anatomical Region Laterality Modality Body, Chest N/A Computed Radiogr aphy 05/21/2025 9:40 AM CDT Impressions 05/21/2025 9:40 AM CDT Findings as described above. Electronically signed by: Halley Moreno M.D. Narrative 05/21/2025 9:40 AM CDT EXAMINATION: XR CHEST 1 VIEW HISTORY: The patient is a 69-year-old male who has had bypass surgery. Comparison study dated 05/20/2025. TECHNIQUE: AP portable view of the chest. FINDINGS: Bilateral thoracostomy tubes in situ. The distal tip of the retracted Wickenburg-Luke catheter is in the superior vena cava. Lungs clear. Heart not enlarged. Slight haziness of the vascular markings. Procedure Note Halley Moreno MD - 05/21/2025 EXAMINATION: XR CHEST 1 VIEW HISTORY: The patient is a 69-year-old male who has had bypass surgery. Comparison study dated 05/20/2025. TECHNIQUE: AP portable view of the chest. FINDINGS: Bilateral thoracostomy tubes in situ. The distal tip of the retracted Wickenburg-Luke catheter is in the superior vena cava. Lungs clear. Heart not enlarged. Slight haziness of the vascular markings. IMPRESSION: Findings as described above. Electronically signed by: Halley Moreno M.D. Rick Camilo NP IMG XR PROCEDURES Final Res ult * Calcium, ionized, whole blood (05/21/2025 2:59 AM CDT) Ca, ionized, bld 4.61 4.50 - 5.10 mg/dL Blood 05/21/2025 2:59 AM CDT 05/21/2025 3:08 AM CDT Rick Camilo NP LAB BLOOD ORDERABLES Final Result Performing Organization Address City/State/[facility] Co de Phone Number [facility] [address] [place] [address] * eGFR (05/21/2025 2:59 AM CDT) eGFR >90 >=60 mL/min/1. 73 m2 Comment: Interpretive Data Reference Interval Normal >/= 90 mL/min/1.73m2 Mildly decreased* 60 - 89 mL/min/1.73m2 Mildly to moderately decreased 45 - 59 mL/min/1.73m2 Moderately to severely decreased 30 - 44 mL/min/1.73m2 Severely decreased 15 - 29 mL/min/1.73m2 Kidney Failure < 15 mL/min/1.73m2 *Relative to young adult level Estimated glomerular filtration rate is determined by the 2020 CKD-EPI equation recommended by the National Kidney Foundation (A Unifying Approach to GFR Estimation: Recommendations of the NKF-ASK Task Force on Reassessing the Inclusion of Race in Diagnosing Kidney Disease, JASN 2020). The CKD-EPI equation should not be used for patients with unstable renal function and has not been validated in children and those over 70. Current interpretive data was last reviewed 2021. Blood 05/21/2025 2:5 9 AM CDT 05/21/2025 3:06 AM CDT us Jacoby Lantigua MD LAB BLOOD ORDERABLES Final R esult [facility] [address] [address] Department [place] [address] * (ABNORMAL) CBC without differential (05/21/2025 2:59 AM CDT) WBC 12.96(H) 3.80 - 9.90 K/cumm Hgb 10.3(L) 13.0 - 17.5 g/dL [facility] Hct 31.0(L) 38.9 - 50.3 % [facility] Plt 140(L) 150 - 400 K/cumm [facility] Comment:No clot detected in sample. MPV 9.5 9.1 - 12.3 fL [facility] RBC 3.30(L) 4.30 - 5.80 M/cumm [facility] MCV 93.9 81.3 - 96.4 fL [facility] MCH 31.2 27.1 - 33.3 pg [facility] MCHC 33.2 32.3 - 35.7 g/dL [facility] RDW CV 12.9 11.1 - 14.9 % [facility] CH RDW SD 44.3 35.7 - 48.1 fL [facility] NRBC abs 0.00 0.00 - 0.01 K/cumm [facility] Blood 05/21/2025 2:59 AM CDT 05/21/2025 3:07 AM CDT Jacoby Lantigua MD LAB BLOOD ORDERABLES Final R esult Performing Organization Address City/[facility]/ZIP Co de Phone Number PEPE RAMACHANDRAN [address] [place] [address] * Magnesium (05/21/2025 2:59 AM CDT) Magnesium 1.9 1.4 - 2.5 mg/dL Blood 05/21/2025 2:59 AM CDT 05/21/2025 3:06 AM CDT Jacoby Lantigua MD LAB BLOOD ORDERABLES Final R [facility] Performing Organization Address [facility] de Phone Number PEPE RAMACHANDRAN [address] Department [place] [address] * (ABNORMAL) Basic metabolic panel (05/21/2025 2:59 AM CDT) Pathologist [facility] Sodium 136 135 - 145 mmol/L Potassium, pl 3.4 3.3 - 4.9 mmol/L [facility] Chloride 102 97 - 110 mmol/L [facility] CO2 24 22 - 32 mmol/L [facility] Anion gap 10 2 - 15 mmol/L [facility] BUN 11 6 - 25 mg/dL [facility] Creatinine 0.77(L) 0.80 - 1.30 mg/dL [facility] Glucose 152 70 - 199 mg/dL [facility] Comment: Interpretive Data Fasting glucose >/= 126 mg/dl is diagnostic for diabetes. Fasting is defined as no caloric intake for at least 8 hours. Fasting glucose between 100 mg/dl to 125 mg/dl is diagnostic of prediabetes. In a patient with classic symptoms of hyperglycemia or hyperglycemic crisis, a random glucose >/= 200 mg/dl is diagnostic for diabetes. In the absence of unequivocal hyperglycemia, results should be confirmed by repeat testing. The classification and Diagnosis of Diabetes Diabetes Care 2021; 46: S19-S40. Current interpretive data was last revised 2022. Calcium 8.0(L) 8.5 - 10.3 mg/dL [facility] Blood 05/21/2025 2:59 AM CDT 05/21/2025 3:06 AM CDT us Jacoby Lantigua MD LAB BLOOD ORDERABLES Final R esult Performing Organization Address [facility] Co de Phone Number PEPE RAMACHANDRAN [address] [facility] [place] [address] * POCT glucose (05/20/2025 8:34 PM CDT) Glucose, POC 147 70 - 199 mg/dL Blood 05/20/2025 8:34 PM CDT 05/20/2025 8:34 PM CDT Jacoby Lantigua MD LAB POCT ORDERABLES - DEVICE Final Result Performing Organization Address [facility] de Phone Number PA[address] [address] [address] [facility] [place] [address] * POCT glucose (05/20/2025 4:48 PM CDT) Glucose, POC 164 70 - 199 mg/dL Blood 05/20/2025 4:48 PM CDT 05/20/2025 4:48 PM CDT Jacoby Lantigua MD LAB POCT ORDERABLES - DEVICE Final Result Performing Organization Address [facility] de Phone Number PAULINAMARY [address] [address] [facility] [place] [address] * POCT glucose (05/20/2025 12:21 PM CDT) Glucose, POC 170 70 - 199 mg/dL Blood 05/20/2025 12:2 1 PM CDT 05/20/2025 12:21 PM CDT Jacoby Lantigua MD LAB POCT ORDERABLES - DEVICE Final Result Performing Organization Address [facility]/ZIP Co de Phone Number PEPE [address] Department [place] [address] * ECG 12 lead (05/20/2025 8:24 AM CDT) 05/20/2025 8:24 AM CDT Narrative [facility] - 05/20/2025 10:14 PM CDT Vent Rate: 79 bpm RR Interval: 751 msec UT Interval: 160 msec QRS Duration: 102 msec QT Interval: 359 msec QTC Interval: 394 msec P-R-T Browder: 18 - 44 - 58 degrees IMPRESSION: SINUS RHYTHM NONSPECIFIC ST ELEVATION [0.05+ mV ST ELEVATION] BORDERLINE ECG Electronically Signed By: Dr. Vic Noble [facility] us Jacoby Lantigua MD ECG ORDERABLES Final Result [facility] Modus[facility] * Critical Care (05/20/2025 7:45 AM CDT) Narrative Eros Ignacio MD - 05/20/2025 7:45 AM CDT Eros Ignacio MD 05/31/2025 8:30 PM Critical Care Performed by: Shanae Matias NP Authorized by: Shanae Matias NP CRITICAL CARE: Team: ROYA Shift: AM Level of Billing: Critical Care My time spent with this patient was 60 minutes: Critical Provider Statement: I have seen and examined the patient on this day of service. I have reviewed and confirmed the history, physical exam, laboratory and radiologic data as documented in the signed ICU note. I have reviewed and discussed my treatment plan with the ICU team and other medical/rewards consultant staff, making frequent assessments and decisions regarding this patient's complex medical care. Critical Care time was exclusive of time spent performing separately billed procedures, treating other patients, and teaching. This time was in addition to and separate from critical care provided by other practitioners in my group on this day of service. Critical Care was necessary to treat or prevent imminent or life-threatening deterioration of the following conditions: I spent time reviewing and interpreting data from bedside monitors, laboratory results, and imaging, I spent time discussing the management of this critically ill patient with consultants and the medical staff and I spent time documenting in the medical record us Shanae Matias [employer] IN CLINIC/BEDSIDE ORDERABLES Final Result * POCT glucose (05/20/2025 7:11 AM CDT) Glucose, POC 146 70 - 199 mg/dL Blood 05/20/2025 7:11 AM CDT 05/20/2025 7:11 AM CDT us Jacoby Lantigua MD LAB POCT ORDERABLES - DEVICE Final Result [facility]PE [id number] Department [place] [address] * XR Chest 1 View - in AM (05/20/2025 6:35 AM CDT) Anatomical Region Laterality Modality Body, Chest N/A Computed Radiogr aphy 05/20/2025 8:23 AM CDT Impressions 05/20/2025 8:23 AM CDT No failure. Electronically signed by: Halley Moreno M.D. Narrative 05/20/2025 8:23 AM CDT EXAMINATION: XR CHEST 1 VIEW HISTORY: The patient is a 69-year-old male who has had bypass surgery. Comparison made with previous study dated 05/19/2025. TECHNIQUE: AP portable view of the chest. FINDINGS: Bilateral thoracostomy tubes in situ. The distal tip of the Wickenburg-Luke catheter is in the right pulmonary artery. The endotracheal and nasogastric tubes have been removed. Heart not enlarged. No failure. No active infiltrate. Procedure Note Halley Moreno MD - 05/20/2025 EXAMINATION: XR CHEST 1 VIEW HISTORY: The patient is a 69-year-old male who has had bypass surgery. Comparison made with previous study dated 05/19/2025. TECHNIQUE: AP portable view of the chest. FINDINGS: Bilateral thoracostomy tubes in situ. The distal tip of the Wickenburg-Luke catheter is in the right pulmonary artery. The endotracheal and nasogastric tubes have been removed. Heart not enlarged. No failure. No active infiltrate. IMPRESSION: No failure. Electronically signed by: Halley Moreno M.D. us Rick Camilo [employer] IMG XR PROCEDURES Final Res ult * eGFR (05/20/2025 2:14 AM CDT) eGFR >90 >=60 mL/min/1. 73 m2 Comment: Interpretive Data Reference Interval Normal >/= 90 mL/min/1.73m2 Mildly decreased* 60 - 89 mL/min/1.73m2 Mildly to moderately decreased 45 - 59 mL/min/1.73m2 Moderately to severely decreased 30 - 44 mL/min/1.73m2 Severely decreased 15 - 29 mL/min/1.73m2 Kidney Failure < 15 mL/min/1.73m2 *Relative to young adult level Estimated glomerular filtration rate is determined by the 2020 CKD-EPI equation recommended by the National Kidney Foundation (A Unifying Approach to GFR Estimation: Recommendations of the NKF-ASK Task Force on Reassessing the Inclusion of Race in Diagnosing Kidney Disease, JASN 2020). The CKD-EPI equation should not be used for patients with unstable renal function and has not been validated in children and those over 70. Current interpretive data was last reviewed 2021. Blood 05/20/2025 2:14 AM CDT 05/20/2025 2:15 AM CDT us Jacoby Lantigua MD LAB BLOOD ORDERABLES Final R esult [facility] [id number] [address] Department [place] [address] * (ABNORMAL) CBC without differential (05/20/2025 2:14 AM CDT) WBC 11.67(H) 3.80 - 9.90 K/cumm Hgb 10.7(L) 13.0 - 17.5 g/dL [facility] Hct 33.3(L) 38.9 - 50.3 % [facility] Plt 163 150 - 400 K/cumm [facility] MPV 9.2 9.1 - 12.3 fL [facility] RBC 3.54(L) 4.30 - 5.80 M/cumm [facility] MCV 94.1 81.3 - 96.4 fL [facility] MCH 30.2 27.1 - 33.3 pg [facility] MCHC 32.1(L) 32.3 - 35.7 g/dL [facility] RDW CV 12.9 11.1 - 14.9 % [facility] RDW SD 44.8 35.7 - 48.1 fL [facility] NRBC abs 0.00 0.00 - 0.01 K/cumm [facility] Blood 05/20/2025 2:14 AM CDT 05/20/2025 2:14 AM CDT Jacoby Lantigua MD LAB BLOOD ORDERABLES Final R esult Performing Organization Address [facility] Co de Phone Number [facility] [address] [address] [employer] [place], [place] [id number] * Magnesium (05/20/2025 2:14 AM CDT) Pathologist [facility] Magnesium 2.1 1.4 - 2.5 mg/dL Blood 05/20/2025 2:14 AM CDT 05/20/2025 2:15 AM CDT Jacoby Lantigua MD LAB BLOOD ORDERABLES Final R esult Performing Organization Address [facility] de Phone Number [facility] [address] [address] [place] [address] * (ABNORMAL) Basic metabolic panel (05/20/2025 2:14 AM CDT) Sodium 139 135 - 145 mmol/L Potassium, pl 4.3 3.3 - 4.9 mmol/L [facility] Chloride 107 97 - 110 mmol/L [facility] CO2 22 22 - 32 mmol/L [facility] Anion gap 10 2 - 15 mmol/L [facility] BUN 11 6 - 25 mg/dL [facility] Creatinine 0.69(L) 0.80 - 1.30 mg/dL [facility] Glucose 144 70 - 199 mg/dL [facility] Comment: Interpretive Data Fasting glucose >/= 126 mg/dl is diagnostic for diabetes. Fasting is defined as no caloric intake for at least 8 hours. Fasting glucose between 100 mg/dl to 125 mg/dl is diagnostic of prediabetes. In a patient with classic symptoms of hyperglycemia or hyperglycemic crisis, a random glucose >/= 200 mg/dl is diagnostic for diabetes. In the absence of unequivocal hyperglycemia, results should be confirmed by repeat testing. The classification and Diagnosis of Diabetes Diabetes Care 2021; 46: S19-S40. Current interpretive data was last revised 2022. Calcium 8.0(L) 8.5 - 10.3 mg/dL [facility] Blood 05/20/2025 2:14 AM CDT 05/20/2025 2:14 AM CDT us Jacoby Lantigua MD LAB BLOOD ORDERABLES Final R esult Performing Organization Address City/[facility]/ZIP Co de Phone Number [facility] [phone] [address] [place] [address] * Oxyhemoglobin, pulmonary artery (05/20/2025 2:00 AM CDT) Pathologist [facility] Oxyhemoglobin, PA 70.9 % Comment: Interpretive Data No reference range established. Current interpretive data was last revised 2019. Blood 05/20/2025 2:00 AM CDT 05/20/2025 2:13 AM CDT us Rick Camilo NP LAB BLOOD ORDERABLES Final Result Performing Organization Address City/[facility]/ZIP Co de Phone Number [facility] [address] [address] [place] [address] * Calcium, ionized, whole blood (05/20/2025 2:00 AM CDT) Ca, ionized, bld 4.64 4.50 - 5.10 mg/dL Blood 05/20/2025 2:00 AM CDT 05/20/2025 2:13 AM CDT us Rick Camilo NP LAB BLOOD ORDERABLES Final Result Performing Organization Address [facility] Co de Phone Number PEPE RAMACHANDRAN [address] [place] [address] * eGFR (05/19/2025 9:07 PM CDT) eGFR >90 >=60 mL/min/1. 73 m2 Comment: Interpretive Data Reference Interval Normal >/= 90 mL/min/1.73m2 Mildly decreased* 60 - 89 mL/min/1.73m2 Mildly to moderately decreased 45 - 59 mL/min/1.73m2 Moderately to severely decreased 30 - 44 mL/min/1.73m2 Severely decreased 15 - 29 mL/min/1.73m2 Kidney Failure < 15 mL/min/1.73m2 *Relative to young adult level Estimated glomerular filtration rate is determined by the 2020 CKD-EPI equation recommended by the National Kidney Foundation (A Unifying Approach to GFR Estimation: Recommendations of the NKF-ASK Task Force on Reassessing the Inclusion of Race in Diagnosing Kidney Disease, JASN 2020). The CKD-EPI equation should not be used for patients with unstable renal function and has not been validated in children and those over 70. Current interpretive data was last reviewed 2021. Blood 05/19/2025 9:07 PM CDT 05/19/2025 9:40 PM CDT us Jacoby Lantigua MD LAB BLOOD ORDERABLES Final R esult [facility] RAMACH[place]DR[facility] [address] Department [place] [employer] [place] [address] * Magnesium (05/19/2025 9:07 PM CDT) Magnesium 2.2 1.4 - 2.5 mg/dL Blood 05/19/2025 9:07 PM CDT 05/19/2025 9:31 PM CDT us Jacoby Lantigua MD LAB BLOOD ORDERABLES Final R esult [facility] [address]ACHANDRAN [address] [address] Department [place] [employer] [place] [address] * (ABNORMAL) Basic metabolic panel (05/19/2025 9:07 PM CDT) Sodium 139 135 - 145 mmol/L Potassium, pl 4.7 3.3 - 4.9 mmol/L [facility] Chloride 108 97 - 110 mmol/L [facility] CO2 21(L) 22 - 32 mmol/L [facility] Anion gap 10 2 - 15 mmol/L [facility] BUN 12 6 - 25 mg/dL [facility] Creatinine 0.72(L) 0.80 - 1.30 mg/dL [facility] Glucose 140 70 - 199 mg/dL [facility] Comment: Interpretive Data Fasting glucose >/= 126 mg/dl is diagnostic for diabetes. Fasting is defined as no caloric intake for at least 8 hours. Fasting glucose between 100 mg/dl to 125 mg/dl is diagnostic of prediabetes. In a patient with classic symptoms of hyperglycemia or hyperglycemic crisis, a random glucose >/= 200 mg/dl is diagnostic for diabetes. In the absence of unequivocal hyperglycemia, results should be confirmed by repeat testing. The classification and Diagnosis of Diabetes Diabetes Care 2021; 46: S19-S40. Current interpretive data was last revised 2022. Calcium 8.3(L) 8.5 - 10.3 mg/dL [facility] Blood 05/19/2025 9:07 PM CDT 05/19/2025 9:31 PM CDT us Jacoby Lantigua MD LAB BLOOD ORDERABLES Final R esult Performing Organization Address City/[facility]/ZIP Co de Phone Number PEPE RAMACHANDRAN [address] [address] [place] [address] * Type and screen (05/19/2025 9:06 PM CDT) Gloria, indirect Negative ABO Rh O Positive [facility] Blood 05/19/2025 9:06 PM CDT 05/19/2025 9:27 PM CDT Narrative [facility] - 05/19/2025 10:08 PM CDT Has the patient had Daratumumab or Isatuximab in the past 6 months?->Unknown Jacoby Lantigua MD LAB BLOOD BANK TEST ORDERABL ES Final Result Performing Organization Address [facility] Co de Phone Number PEPE MADIE [address] [address] Department [place] [employer] [place] [address] * POCT glucose (05/19/2025 8:48 PM CDT) Glucose, POC 134 70 - 199 mg/dL Blood 05/19/2025 8:48 PM CDT 05/19/2025 8:48 PM CDT Jacoby Lantigua MD LAB POCT ORDERABLES - DEVICE Final Result Performing Organization Address [facility] de Phone Number PEPE MADIE [address] [address] Department [place] [employer] [place] [address] * (ABNORMAL) Blood gas, arterial (05/19/2025 7:46 PM CDT) pH, Art 7.35 7.35 - 7.45 PCO2, Arterial 44 35 - 45 mmHg [facility] PO2, Arterial 101 83 - 108 mmHg [facility] HCO3 Art (Calculated) 23 20 - 30 mmol/L [facility] BE, art -1 mmol/L [facility] Comment: Interpretive Data No Reference Range Established Current Interpretive Data was last revised on 2017 O2 Sat Art (Measured) 98(H) 90 - 95 % [facility] Blood 05/19/2025 7:46 PM CDT 05/19/2025 7:58 PM CDT Jacoby Lantigua MD LAB BLOOD ORDERABLES Final R esult Performing Organization Address [facility] Co de Phone Number PEPE RAMACHANDRAN [address] [facility] [employer] [address] * (ABNORMAL) CBC without differential (05/19/2025 6:05 PM CDT) Pathologist [facility] WBC 13.62(H) 3.80 - 9.90 K/cumm Hgb 11.6(L) 13.0 - 17.5 g/dL [facility] Hct 35.4(L) 38.9 - 50.3 % [facility] Plt 205 150 - 400 K/cumm [facility] MPV 9.3 9.1 - 12.3 fL [facility] RBC 3.78(L) 4.30 - 5.80 M/cumm [facility] MCV 93.7 81.3 - 96.4 fL [facility] MCH 30.7 27.1 - 33.3 pg [facility] MCHC 32.8 32.3 - 35.7 g/dL [facility] RDW CV 12.7 11.1 - 14.9 % [facility] RDW SD 43.8 35.7 - 48.1 fL [facility] NRBC abs 0.00 0.00 - 0.01 K/cumm [facility] Blood 05/19/2025 6:05 PM CDT 05/19/2025 6:16 PM CDT Rick Camilo NP LAB BLOOD ORDERABLES Final Result Performing Organization Address [facility] Co de Phone Number PAULINAMARY RAMACHANDRAN [address] [address] [facility] [place] [address] * Calcium, ionized, whole blood (05/19/2025 6:02 PM CDT) [facility] Ca, ionized, bld 4.63 4.50 - 5.10 mg/dL Blood 05/19/2025 6:02 PM CDT 05/19/2025 6:13 PM CDT Rick Camilo NP LAB BLOOD ORDERABLES Final Result Performing Organization Address City/[facility] Co de Phone Number PEPE RAMACHANDRAN [address] [address] [facility] [place] [place] [address] * eGFR (05/19/2025 6:02 PM CDT) eGFR >90 >=60 mL/min/1. 73 m2 Comment: Interpretive Data Reference Interval Normal >/= 90 mL/min/1.73m2 Mildly decreased* 60 - 89 mL/min/1.73m2 Mildly to moderately decreased 45 - 59 mL/min/1.73m2 Moderately to severely decreased 30 - 44 mL/min/1.73m2 Severely decreased 15 - 29 mL/min/1.73m2 Kidney Failure < 15 mL/min/1.73m2 *Relative to young adult level Estimated glomerular filtration rate is determined by the 2020 CKD-EPI equation recommended by the National Kidney Foundation (A Unifying Approach to GFR Estimation: Recommendations of the NKF-ASK Task Force on Reassessing the Inclusion of Race in Diagnosing Kidney Disease, JASN 2020). The CKD-EPI equation should not be used for patients with unstable renal function and has not been validated in children and those over 70. Current interpretive data was last reviewed 2021. Blood 05/19/2025 6:02 PM CDT 05/19/2025 6:26 PM CDT Rick Camilo NP LAB BLOOD ORDERABLES Final Result Performing Organization Address [facility] Co de Phone Number [facility] [address] [address] [facility] [place] [place] [address] * Magnesium (05/19/2025 6:02 PM CDT) Pathologist [facility] Magnesium 2.3 1.4 - 2.5 mg/dL Blood 05/19/2025 6:02 PM CDT 05/19/2025 6:13 PM CDT Rick Camilo NP LAB BLOOD ORDERABLES Final Result Performing Organization Address [facility] Co de Phone [place] [address] [address] Department [place] [address] * (ABNORMAL) Blood gas, arterial (05/19/2025 6:02 PM CDT) pH, Art 7.32(L) 7.35 - 7.45 PCO2, Arterial 48(H) 35 - 45 mmHg [facility] PO2, Arterial 115(H) 83 - 108 mmHg [facility] HCO3 Art (Calculated) 23 20 - 30 mmol/L [facility] BE, art -1 mmol/L [facility] Comment: Interpretive Data No Reference Range Established Current Interpretive Data was last revised on 2017 O2 Sat Art (Measured) 98(H) 90 - 95 % [facility] Blood 05/19/2025 6:02 PM CDT 05/19/2025 6:14 PM CDT Rick Camilo NP LAB BLOOD ORDERABLES Final Result [facility] [address] [address] Department [place] [address] * (ABNORMAL) Basic metabolic panel (05/19/2025 6:02 PM CDT) Sodium 140 135 - 145 mmol/L Potassium, pl 4.7 3.3 - 4.9 mmol/L [facility] Chloride 108 97 - 110 mmol/L [facility] CO2 20(L) 22 - 32 mmol/L [facility] Anion gap 12 2 - 15 mmol/L [facility] BUN 13 6 - 25 mg/dL [facility] Creatinine 0.70(L) 0.80 - 1.30 mg/dL [facility] Glucose 137 70 - 199 mg/dL [facility] Comment: Interpretive Data Fasting glucose >/= 126 mg/dl is diagnostic for diabetes. Fasting is defined as no caloric intake for at least 8 hours. Fasting glucose between 100 mg/dl to 125 mg/dl is diagnostic of prediabetes. In a patient with classic symptoms of hyperglycemia or hyperglycemic crisis, a random glucose >/= 200 mg/dl is diagnostic for diabetes. In the absence of unequivocal hyperglycemia, results should be confirmed by repeat testing. The classification and Diagnosis of Diabetes Diabetes Care 2021; 46: S19-S40. Current interpretive data was last revised 2022. Calcium 8.0(L) 8.5 - 10.3 mg/dL [facility] Blood 05/19/2025 6:02 PM CDT 05/19/2025 6:13 PM CDT Rick Camilo NP LAB BLOOD ORDERABLES Final Result Performing Organization Address [facility] Co de Phone Number PEPE RAMACHANDRAN [address] [facility] [place] [address] * POCT glucose (05/19/2025 4:25 PM CDT) Glucose, POC 128 70 - 199 mg/dL Blood 05/19/2025 4:25 PM CDT 05/19/2025 4:25 PM CDT Result [facility] Jacoby Lantigua MD LAB POCT ORDERABLES - DEVICE Final Result Performing Organization Address [facility] Phone Number PEPE RAMACHANDRAN [address] [address] [place] [address] * (ABNORMAL) Blood gas, arterial (05/19/2025 2:47 PM CDT) pH, Art 7.36 7.35 - 7.45 PCO2, Arterial 40 35 - 45 mmHg [facility] PO2, Arterial 146(H) 83 - 108 mmHg [facility] HCO3 Art (Calculated) 22 20 - 30 mmol/L [facility] BE, art -2 mmol/L [facility] Comment: Interpretive Data No Reference Range Established Current Interpretive Data was last revised on 2017 O2 Sat Art (Measured) 99(H) 90 - 95 % [facility] Blood 05/19/2025 2:47 PM CDT 05/19/2025 2:55 PM CDT Jacoby Lantigua MD LAB BLOOD ORDERABLES Final R esult Performing Organization Address [facility] Co de Phone Number PEPE RAMACHANDRAN [address] Department [place] [address] * POCT glucose (05/19/2025 2:43 PM CDT) Glucose, POC 131 70 - 199 mg/dL Blood 05/19/2025 2:43 PM CDT 05/19/2025 2:43 PM CDT Jacoby Lantigua MD LAB POCT ORDERABLES - DEVICE Final Result PE[facility] [address] [place] [address] * Surgical pathology (05/19/2025 2:00 PM CDT) Tissue (Lymph Node, Single excision) 05/19/2025 10:05 AM CDT Narrative PATHOLOGY - 05/22/2025 1:13 PM CDT EPIC results best viewed via link to PDF [facility] Department of Pathology [address] [place] [id number] Note to Patients: This report may contain a detailed description of human tissue sent by a health care provider to the laboratory for pathologic evaluation. The content of this report is essential for diagnosis and may provide important critical findings. This information may be unfamiliar to patients to review without a medical professional present. It is advised that the patient review this report in the presence of a health care provider who can answer questions and explain the details. Final Report Patient Name: NASRA CAMARGO Address: [place] [id number] Gender: M : 1955 (Age: 69) Service: Cardiothoracic Location: Hospital #: [id number] Patient Type: [facility] Taken: 05/19/2025 Received: 05/19/2025 Accessioned: 05/19/2025 Reported: 05/22/2025 Physician(s):Edmund Saleem MD Diagnosis: Lymph node, internal mammary, excision: - Mild benign lymphoid hyperplasia (see microscopic description) Shona Aponte M.D. Report Electronically Reviewed and Signed Out By Shona Aponte M.D. 05/22/2025 13:13:29 Specimen(s) Received: A: Internal mammary lymph node for permanent Microscopic Description: Microscopic examination of the internal mammary lymph node, examined at multiple levels shows fragments of a lymph node, showing some mild benign lymphoid hyperplasia, with no evidence of metastatic carcinoma by routine light microscopy. Immunohistochemical stains are performed (with appropriate controls) to confirm the light microscopic impression. Villa keratin AE1/AE 3 is negative, while the CD4 5 highlights lymphocytes. The CD20 and PAX-5 show a similar staining pattern, highlighting the benign follicles, while the CD5, CD3 and BCL-2 highlight the background T- cells. The CD10 is negative, while the Ki-67 shows a slightly higher staining pattern within the follicles as opposed to the parafollicular T cells, consistent with a benign process. Recommend follow up as clinically indicated. Intradepartmental consultation: Dr. Appiah has reviewed the slides and concurs. Clinical History: Coronary artery disease involving cap[place] grande coronary artery of cap[place] grande heart without angina pectoris Procedure: coronary artery bypass graft x1 Gross Description: The specimen is submitted in a single formalin filled container labeled [facility] and internal mammary lymph node for permanent. It is a brown lymph node, 5 x 4 mm, submitted intact. All in one cassette. Ronni Frankel/Charley Appiah M.D. REPORT IMAGES AND SCANNED DOCUMENTS, IF INCLUDED, ONLY VIEWABLE IN PDF VERSION OF REPORT The performance characteristics of some immunohistochemical stains, fluorescence in-situ hybridization tests and immunophenotyping by flow cytometry cited in this report (if any) were determined by the Surgical Pathology Department at [facility] as part of an ongoing quality control representative program and in compliance with federally mandated regulations drawn from the Clinical Laboratory Improvement Act of 1988 (CLIA '88). Some of these tests rely on the use of analyte specific reagents and are subject to specific labeling requirements by the US Food and Drug Administration. Such diagnostic tests may only be performed in a facility that is certified by the Department of Health and Human Services as a high complexity laboratory under CLIA '88. The FDA has determined that such clearance or approval is not necessary. This test is used for clinical purposes. It should not be regarded as investigational or for research. Nevertheless, federal rules concerning the medical use of analyte specific reagents require that the following disclaimer be attached to the report: This test was developed and its performance characteristics determined by the Surgical Pathology Department [facility]. It has not been cleared or approved by the U. S. Food and Drug Administration. Note for decalcified specimens: This assay has not been validated on decalcified tissues. Results should be interpreted with caution given the possibility of false negativity on decalcified specimens us Jacoby Lantigua MD LAB PATHOLOGY ORDERABLES Fin al Result PATHOLOGY [address] [place] [address] * Critical Care (05/19/2025 1:58 PM CDT) Narrative Eros Ignacio MD - 05/19/2025 1:58 PM CDT Eros Ignacio MD 05/19/2025 6:27 PM Critical Care Performed by: Traci Fang NP Authorized by: Traci Fang NP CRITICAL CARE: Team: ROYA Shift: AM Level of Billing: Critical Care My time spent with this patient was 100 minutes: Critical Provider Statement: I have seen and examined the patient on this day of service. I have reviewed and confirmed the history, physical exam, laboratory and radiologic data as documented in the signed ICU note. I have reviewed and discussed my treatment plan with the ICU team and other medical/rewards consultant staff, making frequent assessments and decisions regarding this patient's complex medical care. Critical Care time was exclusive of time spent performing separately billed procedures, treating other patients, and teaching. This time was in addition to and separate from critical care provided by other practitioners in my group on this day of service. Critical Care was necessary to treat or prevent imminent or life-threatening deterioration of the following conditions: I spent time reviewing and interpreting data from bedside monitors, laboratory results, and imaging, I spent time discussing the management of this critically ill patient with consultants and the medical staff and I spent time documenting in the medical record us Traci Fang NP IN CLINIC/BEDSIDE ORDERABLES Final Result * XR Chest 1 View (05/19/2025 1:43 PM CDT) Anatomical Region Laterality Modality Body, Chest N/A Computed Radiogr aphy 05/19/2025 2:22 PM CDT Impressions 05/19/2025 2:22 PM CDT Findings as described above. Electronically signed by: Halley Moreno M.D. Narrative 05/19/2025 2:22 PM CDT EXAMINATION: XR CHEST 1 VIEW HISTORY: The patient is a 69-year-old male who has had bypass surgery. Comparison made with the previous study dated 05/08/2025. TECHNIQUE: Portable AP view of the chest. FINDINGS: Bilateral thoracostomy tubes and mediastinal drain in place. The distal tip of the Wickenburg-Luke catheter is in the right main pulmonary artery. The distal tip of the endotracheal tube is approximately 3 cm above the level of janki. The distal tip of the nasogastric tube is in the fundus of the stomach. The heart is not enlarged. Slight haziness of the vascular markings. No focal consolidation. Procedure Note Halley Moreno MD - 05/19/2025 EXAMINATION: XR CHEST 1 VIEW HISTORY: The patient is a 69-year-old male who has had bypass surgery. Comparison made with the previous study dated 05/08/2025. TECHNIQUE: Portable AP view of the chest. FINDINGS: Bilateral thoracostomy tubes and mediastinal drain in place. The distal tip of the Wickenburg-Luke catheter is in the right main pulmonary artery. The distal tip of the endotracheal tube is approximately 3 cm above the level of janki. The distal tip of the nasogastric tube is in the fundus of the stomach. The heart is not enlarged. Slight haziness of the vascular markings. No focal consolidation. IMPRESSION: Findings as described above. Electronically signed by: Halley Moreno M.D. us Jacoby Lantigua MD IMG XR PROCEDURES Final Resu lt * Calcium, ionized, whole blood (05/19/2025 1:14 PM CDT) Ca, ionized, bld 4.70 4.50 - 5.10 mg/dL Blood 05/19/2025 1:14 PM CDT 05/19/2025 1:21 PM CDT Jacoby Lantigua MD LAB BLOOD ORDERABLES Final R esult Performing Organization Address [facility] Co de Phone Number PEPE RAMACHANDRAN [address] [place] [address] * eGFR (05/19/2025 1:14 PM CDT) eGFR >90 >=60 mL/min/1. 73 m2 Comment: Interpretive Data Reference Interval Normal >/= 90 mL/min/1.73m2 Mildly decreased* 60 - 89 mL/min/1.73m2 Mildly to moderately decreased 45 - 59 mL/min/1.73m2 Moderately to severely decreased 30 - 44 mL/min/1.73m2 Severely decreased 15 - 29 mL/min/1.73m2 Kidney Failure < 15 mL/min/1.73m2 *Relative to young adult level Estimated glomerular filtration rate is determined by the 2020 CKD-EPI equation recommended by the National Kidney Foundation (A Unifying Approach to GFR Estimation: Recommendations of the NKF-ASK Task Force on Reassessing the Inclusion of Race in Diagnosing Kidney Disease, JASN 2020). The CKD-EPI equation should not be used for patients with unstable renal function and has not been validated in children and those over 70. Current interpretive data was last reviewed 2021. Blood 05/19/2025 1:14 PM CDT 05/19/2025 1:37 PM CDT Jacoby Lantigua MD LAB BLOOD ORDERABLES Final R esult Performing Organization Address [facility]/ZIP Co de Phone Number PEPE RAMACHANDRAN [address] [employer] [place], [place] [phone] * aPTT (05/19/2025 1:14 PM CDT) aPTT 26 26 - 38 sec Comment: Interpretive Data Heparin therapeutic range: 66.0 - 100.0 seconds. Range based on correlation with therapeutic heparin activity range of 0.3 - 0.7 Units/mL. Current interpretive data was last revised on 2023. Blood 05/19/2025 1:14 PM CDT 05/19/2025 1:23 PM CDT Jacoby Lantigua MD LAB BLOOD ORDERABLES Final R esult Performing Organization Address [facility] de Phone Number [facility] [address] [address] [facility] [employer] [place] [address] * (ABNORMAL) Protime-INR (05/19/2025 1:14 PM CDT) PT 14.2(H) 10.2 - 13.5 sec INR 1.26(H) 0.90 - 1.20 [facility] Comment: Interpretive data Oral anticoagulant therapeutic ranges: Venous thromboembolism prophylaxis or treatment: 2.0-3.0 CARDIOLOGY Standard range: 2.0-3.0 High-intensity range: 2.5-3.5 Refer to indication-specific guidelines for appropriate target ranges for prosthetic heart valve replacement. Current interpretive data was last revised on 2019. Blood 05/19/2025 1:14 PM CDT 05/19/2025 1:23 PM CDT Jacoby Lantigua MD LAB BLOOD ORDERABLES Final R esult Performing Organization Address [facility] de Phone Number PEPE [address] [address] [facility] [employer] [place] [address] * (ABNORMAL) CBC without differential (05/19/2025 1:14 PM CDT) WBC 14.14(H) 3.80 - 9.90 K/cumm Hgb 11.4(L) 13.0 - 17.5 g/dL [facility] Hct 33.7(L) 38.9 - 50.3 % [facility] Plt 167 150 - 400 K/cumm [facility] MPV 9.3 9.1 - 12.3 fL [facility] RBC 3.60(L) 4.30 - 5.80 M/cumm [facility] MCV 93.6 81.3 - 96.4 fL [facility] MCH 31.7 27.1 - 33.3 pg [facility] MCHC 33.8 32.3 - 35.7 g/dL [facility] RDW CV 12.6 11.1 - 14.9 % [facility] RDW SD 43.2 35.7 - 48.1 fL [facility] NRBC abs 0.00 0.00 - 0.01 K/cumm [facility] Blood 05/19/2025 1:14 PM CDT 05/19/2025 1:23 PM CDT Jacoby Lantigua MD LAB BLOOD ORDERABLES Final R esult PEPE RAMACHANDRAN [address] [place] [address] * Magnesium (05/19/2025 1:14 PM CDT) Pathologist [facility] Magnesium 2.5 1.4 - 2.5 mg/dL Blood 05/19/2025 1:14 PM CDT 05/19/2025 1:21 PM CDT Jacoby Lantigua MD LAB BLOOD ORDERABLES Final R esult Performing Organization Address [facility] Co de Phone Number PEPE RAMACHANDRAN [address] [address] Department [place] [employer] [place] [address] * (ABNORMAL) Blood gas, arterial (05/19/2025 1:14 PM CDT) pH, Art 7.32(L) 7.35 - 7.45 PCO2, Arterial 48(H) 35 - 45 mmHg [facility] PO2, Arterial 397(H) 83 - 108 mmHg [facility] HCO3 Art (Calculated) 23 20 - 30 mmol/L [facility] BE, art -1 mmol/L [facility] Comment: Interpretive Data No Reference Range Established Current Interpretive Data was last revised on 2017 O2 Sat Art (Measured) 100(H) 90 - 95 % [facility] Blood 05/19/2025 1:14 PM CDT 05/19/2025 1:21 PM CDT Jacoby Lantigua MD LAB BLOOD ORDERABLES Final R esult Performing Organization Address [facility]/ZIP Co de Phone Number PEPE RAMACHANDRAN [address] [address] [place] [address] * (ABNORMAL) Basic metabolic panel (05/19/2025 1:14 PM CDT) Pathologist [facility] Sodium 138 135 - 145 mmol/L Potassium, pl 4.5 3.3 - 4.9 mmol/L [facility] Chloride 107 97 - 110 mmol/L [facility] CO2 23 22 - 32 mmol/L [facility] Anion gap 8 2 - 15 mmol/L [facility] BUN 15 6 - 25 mg/dL [facility] Creatinine 0.73(L) 0.80 - 1.30 mg/dL [facility] Glucose 139 70 - 199 mg/dL [facility] Comment: Interpretive Data Fasting glucose >/= 126 mg/dl is diagnostic for diabetes. Fasting is defined as no caloric intake for at least 8 hours. Fasting glucose between 100 mg/dl to 125 mg/dl is diagnostic of prediabetes. In a patient with classic symptoms of hyperglycemia or hyperglycemic crisis, a random glucose >/= 200 mg/dl is diagnostic for diabetes. In the absence of unequivocal hyperglycemia, results should be confirmed by repeat testing. The classification and Diagnosis of Diabetes Diabetes Care 2021; 46: S19-S40. Current interpretive data was last revised 2022. Calcium 7.7(L) 8.5 - 10.3 mg/dL [facility] Blood 05/19/2025 1:14 PM CDT 05/19/2025 1:21 PM CDT Jacoby Lantigua MD LAB BLOOD ORDERABLES Final R esult Performing Organization Address [facility]/ZIP Co de Phone Number PEPE RAMACHANDRAN [address] [address] [place] [address] * POCT glucose (05/19/2025 1:05 PM CDT) Glucose, POC 123 70 - 199 mg/dL Blood 05/19/2025 1:05 PM CDT 05/19/2025 1:05 PM CDT Jacoby Lantigua MD LAB POCT ORDERABLES - DEVICE Final Result [facility] [address] [place] [address] * (ABNORMAL) POC Blood Gas and Chemistries, Arterial - (05/19/2025 11:49 AM CDT) pH, Art POC 7.35 7.35 - 7.45 pCO2, Art POC 44 35 - 45 mmHg [facility] pO2, Art POC 413(H) 83 - 108 mmHg [facility] Na, POC 135 135 - 145 mmol/L [facility] K POC 4.1 3.3 - 4.9 mmol/L [facility] Comment: Interpretive Data This method is not able to assess for hemolysis, which may falsely increase potassium concentrations. If further testing is needed to evaluate this result, consider in-laboratory plasma potassium. Current Interpretive Data was last revised on 2022. Ionized Ca, POC 4.12(L) 4.50 - 5.10 mg/dL [facility] Glucose, POC 134 70 - 199 mg/dL [facility] Lactate POC 1.2 0.7 - 2.0 mmol/L [facility] O2Hb, Art POC 96.7(H) 90.0 - 95.0 % [facility] SO2 (sneha) arterial 99(H) 90 - 95 % [facility] Total CO2, Art POC 26 21 - 30 mmol/L [facility] BE, art, POC -1 mmol/L [facility] Hct, POC 26.0(L) 38.9 - 50.3 % [facility] Total Hb, POC 8.8(L) 13.0 - 17.5 g/dL [facility] Blood 05/19/2025 11:4 9 AM CDT 05/19/2025 11:49 AM CDT us Jacoby Lantigua MD LAB POCT ORDERABLES - DEVICE Final Result Performing Organization Address [facility] Co de Phone Number PEPE RAMACHANDRAN [address] [facility] [place] [address] * POC Activated Clotting Time, High Range (05/19/2025 11:46 AM CDT) ACT 112 87 - 138 sec Blood 05/19/2025 11:4 6 AM CDT 05/19/2025 11:46 AM CDT Jacoby Lantigua MD LAB BLOOD ORDERABLES Final R esult Performing Organization Address [facility] Co de Phone Number PEPE RAMACHANDRAN [address] [address] [facility] [place] [address] * (ABNORMAL) POC Activated Clotting Time, High Range (05/19/2025 11:16 AM CDT) ACT 485(H) 87 - 138 sec Blood 05/19/2025 11:1 6 AM CDT 05/19/2025 11:16 AM CDT Jacoby Lantigua MD LAB BLOOD ORDERABLES Final R esult Performing Organization Address [facility] Co de Phone Number PEPE RAMACHANDRAN [address] [place] [address] * (ABNORMAL) POC Blood Gas and Chemistries, Arterial - (05/19/2025 11:16 AM CDT) pH, Art POC 7.42 7.35 - 7.45 pCO2, Art POC 36 35 - 45 mmHg [facility] pO2, Art POC 249(H) 83 - 108 mmHg [facility] Na, POC 132(L) 135 - 145 mmol/L [facility] K POC 4.9 3.3 - 4.9 mmol/L [facility] Comment: Interpretive Data This method is not able to assess for hemolysis, which may falsely increase potassium concentrations. If further testing is needed to evaluate this result, consider in-laboratory plasma potassium. Current Interpretive Data was last revised on 2022. Ionized Ca, POC 4.22(L) 4.50 - 5.10 mg/dL [facility] Glucose, POC 133 70 - 199 mg/dL [facility] Lactate POC 1.2 0.7 - 2.0 mmol/L [facility] O2Hb, Art POC 97.7(H) 90.0 - 95.0 % [facility] SO2 (sneha) arterial 100(H) 90 - 95 % [facility] Total CO2, Art POC 24 21 - 30 mmol/L [facility] BE, art, POC -1 mmol/L [facility] Hct, POC 25.0(L) 38.9 - 50.3 % [facility] Total Hb, POC 8.3(L) 13.0 - 17.5 g/dL [facility] Blood 05/19/2025 11:1 6 AM CDT 05/19/2025 11:16 AM CDT Jacoby Lantigua MD LAB POCT ORDERABLES - DEVICE Final Result Performing Organization Address [facility] Co de Phone Number PEPE RAMACHANDRAN [address] [employer] [place], [place] [phone] * Platelet count (05/19/2025 11:08 AM CDT) [facility] Plt 177 150 - 400 K/cumm Blood 05/19/2025 11:0 8 AM CDT 05/19/2025 11:17 AM CDT Jacoby Lantigua MD LAB BLOOD ORDERABLES Final R esult Performing Organization Address [facility] Co de Phone Number PAULINAMARY RAMACHANDRAN [address] [address] Department of [employer] [place], [place] [phone] * (ABNORMAL) POC Activated Clotting Time, High Range (05/19/2025 10:42 AM CDT) Pathologist [facility] ACT 548(H) 87 - 138 sec Blood 05/19/2025 10:4 2 AM CDT 05/19/2025 10:42 AM CDT us Jacoby Lantigua MD LAB BLOOD ORDERABLES Final R esult PEPE RAMACHANDRAN [address] [address] [place] [address] * (ABNORMAL) POC Blood Gas and Chemistries, Arterial - (05/19/2025 10:42 AM CDT) pH, Art POC 7.37 7.35 - 7.45 pCO2, Art POC 43 35 - 45 mmHg [facility] pO2, Art POC 287(H) 83 - 108 mmHg [facility] Na, POC 132(L) 135 - 145 mmol/L [facility] K POC 5.4(H) 3.3 - 4.9 mmol/L [facility] Comment: Interpretive Data This method is not able to assess for hemolysis, which may falsely increase potassium concentrations. If further testing is needed to evaluate this result, consider in-laboratory plasma potassium. Current Interpretive Data was last revised on 2022. Ionized Ca, POC 4.08(L) 4.50 - 5.10 mg/dL [facility] Glucose, POC 121 70 - 199 mg/dL [facility] Lactate POC 0.9 0.7 - 2.0 mmol/L [facility] O2Hb, Art POC 97.5(H) 90.0 - 95.0 % [facility] SO2 (sneha) arterial 99(H) 90 - 95 % [facility] Total CO2, Art POC 26 21 - 30 mmol/L [facility] BE, art, POC 0 mmol/L [facility] Hct, POC 27.0(L) 38.9 - 50.3 % [facility] Total Hb, POC 9.0(L) 13.0 - 17.5 g/dL [facility] Blood 05/19/2025 10:4 2 AM CDT 05/19/2025 10:42 AM CDT us Jacoby Lantigua MD LAB POCT ORDERABLES - DEVICE Final Result PEPE RAMACHANDRAN [address] [place] [address] * (ABNORMAL) POC Activated Clotting Time, High Range (05/19/2025 9:49 AM CDT) ACT 576(H) 87 - 138 sec Blood 05/19/2025 9:49 AM CDT 05/19/2025 9:49 AM CDT Jacoby Lantigua MD LAB BLOOD ORDER[place] [address] [address] Department [place] [address] * (ABNORMAL) POC Blood Gas and Chemistries, Arterial - (05/19/2025 8:53 AM CDT) pH, Art POC 7.40 7.35 - 7.45 pCO2, Art POC 43 35 - 45 mmHg [facility] pO2, Art POC 458(H) 83 - 108 mmHg [facility] Na, POC 134(L) 135 - 145 mmol/L [facility] K POC 3.5 3.3 - 4.9 mmol/L [facility] Comment: Interpretive Data This method is not able to assess for hemolysis, which may falsely increase potassium concentrations. If further testing is needed to evaluate this result, consider in-laboratory plasma potassium. Current Interpretive Data was last revised on 2022. Ionized Ca, POC 4.66 4.50 - 5.10 mg/dL [facility] Glucose, POC 172 70 - 199 mg/dL [facility] Lactate POC 1.1 0.7 - 2.0 mmol/L [facility] O2Hb, Art POC 97.2(H) 90.0 - 95.0 % [facility] SO2 (sneha) arterial 100(H) 90 - 95 % [facility] Total CO2, Art POC 28 21 - 30 mmol/L [facility] BE, art, POC 2 mmol/L [facility] Hct, POC 36.0(L) 38.9 - 50.3 % [facility] Total Hb, POC 12.1(L) 13.0 - 17.5 g/dL [facility] Blood 05/19/2025 8:53 AM CDT 05/19/2025 8:53 AM CDT Jacoby Lantigua MD LAB POCT ORDERABLES - DEVICE Final Result Performing Organization Address [facility] Co de Phone Number PEPE RAMACHANDRAN [address] [address] [facility] [place] [address] * POC Activated Clotting Time, High Range (05/19/2025 8:50 AM CDT) ACT 101 87 - 138 sec Blood 05/19/2025 8:50 AM CDT 05/19/2025 8:50 AM CDT Jacoby Lantigua MD LAB BLOOD ORDERABLES Final R esult Performing Organization Address [facility] de Phone Number PEPE RAMACHANDRAN [address] [address] [facility] [place] [address] * RAVI (05/19/2025 8:46 AM CDT) Anatomical Region Laterality Modality Other Narrative 05/19/2025 8:46 AM CDT Vega Pimentel MD 05/19/2025 8:47 AM RAVI Date/time: 05/19/2025 8:46 AM Staff: Supervising anesthesiologist: Vega Pimentel MD Performed by: Anesthesiologist: Vega Pimentel MD Preprocedure checklist: patient identified, procedure contraindications assessed and RAVI probe inserted into esophagus using lubricating jelly General procedure Information: Reason for procedure/indications: assessment of surgical repair and hemodynamic monitoring Procedure performed at surgeon's request: yes Results discussed with surgeon: yes Images submitted to archive: no Patient location: OR Intubated: yes Bite blocked placed: yes Probe Insertion: easy Complications: no Probe type: adult Modalities: 2D imaging, continuous wave Doppler, pulsed wave Doppler and color Doppler Echocardiographic and doppler measurements: Ventricles: Left ventricle: Cavity size: normal Hypertrophy: Yes Thrombus: No Global function: normal LVEF%: normal Right ventricle: Cavity size: normal Hypertrophy: no Thrombus: No Global function: normal RVEF%: normal Interventricular septum: normal Regional function: 1- Basal anteroseptal: normal 2- Basal anterior: normal 3- Basal anterolateral: normal 4- Basal inferolateral: normal 5- Basal inferior: normal 6- Basal inferoseptal: normal 7- Mid anteroseptal: normal 8- Mid anterior: normal 9- Mid anterolateral: normal 10- Mid inferolateral: normal 11- Mid inferior: normal 12- Mid inferoseptal: normal 13- Apical anterior: normal 14- Apical lateral: normal 15- Apical inferior: normal 16- Apical septal: normal 17- [place]: normal Valves: Aortic Valve: Annulus: normal Leaflet morphology: normal Leaflet motion: normal Stenosis: none Regurgitation: none Mitral valve: Annulus: normal Leaflet morphology anterior: normal Leaflet morphology posterior: normal Leaflet motion anterior: normal Leaflet motion posterior: normal Stenosis: none Regurgitation: mild Tricuspid valve: Annulus: normal Leaflet morphology: normal Leaflet motion: normal Stenosis: none Regurgitation: mild Aorta: Ascending aorta: Size: dilated Diameter: 3.6 cm Dissection: no Plaque thickness(mm): 0-3 Plaque mobile: no Descending aorta: Size: normal Dissection: no Plaque thickness(mm): 0-3 Plaque mobile: no Atria: Right atrium: Size: normal Left atrium: Size: normal (normal) Left atrial appendage: normal Interatrial septum: normal Diastolic function and other findings: Diastolic function: normal Pericardium: normal Left pleural effusion: none Right pleural effusion: normal Pulmonary venous flow: normal Postprocedure (follow-up) RAVI exam: LV: unchanged RV: unchanged Interventricular septum: unchanged Aortic valve: unchanged Mitral valve: unchanged Pulmonic valve: unchanged Tricuspid valve: unchanged Atria: unchanged Aorta: unchanged Pericardium: unchanged Left pleural: unchanged Right pleural: unchanged Attestation Statement: By signing this report the attending anesthesiologist certifies that he or she has personally reviewed and interpreted the echocardiogram and has reviewed and or edited and agrees with the written comments contained within the report. us Vega Pimentel MD ANESTHESIA ORDERABLES Final Resu lt * PULMONARY ARTERY CATH, UT AN CENTRAL LINE MULTI LUMEN (05/19/2025 8:44 AM CDT) Chelle Sherman AA - 05/19/2025 8:44 AM CDT Chelle Christine AA 05/19/2025 8:44 AM Central Venous Line Patient location: OR Indication: central venous access and CVP monitoring Staff: Placed by: URSULA: Chelle Christine AA Procedure prep: Patient position: Trendelenburg. PPE: provider hand hygiene, provider hat/mask, sterile gloves, sterile gown, full body drape, sterile probe covers and sterile gel. Prep solution: povidone-iodine was applied to area. Ultrasound Evaluation: Ultrasound was prepped into field. Ultrasound image(s) saved to archive. Prior to the procedure, the cannulated vein was evaluated by ultrasound and deemed suitably patent for access.This vessel was accessed using real-time ultrasound guidance and an image was placed in the patient's medical record Central line: Laterality: right Site: internal jugular Catheter type: multi-lumen access catheter (MAC) Catheter size: 9 Fr. Technique: anatomy identified with ultrasound, vein located with finder needle, Seldinger technique, wire threaded easily and wire removed intact Venous verification: ultrasound confirmation and RAVI confirmation Post insertion: all ports aspirated, all ports flushed easily, line sutured in place and occlusive dressing applied Chlorhexidine patch applied: yes Number of attempts: 1 PA catheter placement: PA catheter type: oximetric PA catheter size: 8 Fr PA catheter laterality: right PA catheter site: internal jugular Placement guided by: pressure tracing changes and verified by RAVI PA catheter depth 52 cmNo Assessment: Events: patient tolerated procedure well with no complications us Vega Pimentel MD ANESTHESIA ORDERABLES Final Resu lt * Arterial Line (05/19/2025 8:44 AM CDT) Narrative Chelle Christine AA - 05/19/2025 8:44 AM CDT Chelle Christine AA 05/19/2025 8:44 AM Arterial Line Patient location: pre-op holding Indication: continuous blood pressure monitoring and blood sampling needed Ultrasound assisted: yes Staff: Placed by: AA: Chelle Christine AA Procedure prep: Prep solution: chlorhexadine/alcohol Prep: provider hat/mask and sterile gloves Skin infiltrated with lidocaine 1%: yes Arterial line: Catheter size: 20 gauge Catheter length: 1 and 3/4 inch Catheter type: wire-guided catheter Seldinger technique: yes Laterality: right Site: radial artery Line secured: Tegaderm and tape Results: good waveform and good blood return Number of attempts: 1 Assessment: Events: patient tolerated procedure well with no complications us Vega Pimentel MD ANESTHESIA ORDERABLES Edited Res ult - Final * UT AN ELECTIVE ENDOTRACHEAL AIRWAY (05/19/2025 8:42 AM CDT) Narrative Chelle Christine AA - 05/19/2025 8:42 AM CDT Chelle Christine AA 05/19/2025 8:44 AM Airway Patient location: OR Urgency: elective Indications for airway management: anesthesia and airway protection Difficult airway: no Staff: Placed by: Anesthesiologist: Vega Pimentel MD Emergent airway documentation: Risks and benefits discussed: yes Consent obtained: yes Consent given by: patient Airway prep: Preoxygenated: yes Patient position: sniffing MILS maintained throughout: yes Mask difficulty assessment: 1 - vent by mask Sedation level during airway: GA Final airway details: Final airway type: endotracheal airway Tube type: ETT ETT size: 8.0 mm Cuffed: yes Technique used for successful ETT placement: video laryngoscopy Insertion site: oral Blade type: Denae Video blade type: Roa Blade size: 4 Cormack-Lehane (video): grade I - full view of glottis Cuff volume: 7 mL Cuff inflated with: air ETT to lips: 22 cm Placement verified by: auscultation and CO2 detection Airway secured with: silk tape Number of attempts: 1 Additional comments: Atraumatic insertion. Dentition as pre-op. Continue to assess Vega Pimentel MD ANESTHESIA ORDERABLES Final Resu lt * RAVI Add-On For OR (05/19/2025 7:04 AM CDT) Pathologist [facility] BSA 2.21 m2 CONS SCIMAGE Narrative CONS SCIMAGE - 05/19/2025 7:04 AM CDT Procedure Auto Finalized by Rule: MANISHA CV RAVI DURING CASE OR Please see the Anesthesiologist's Procedure Note for the results. Vega Pimentel MD CV ECHO PROCEDURES Final Result CONS SCIMAGE * Potassium, whole blood (05/19/2025 6:43 AM CDT) Potassium, bld 3.8 3.3 - 4.9 mmol/L Comment: Interpretive Data This method is not able to assess for hemolysis, which may falsely increase potassium concentrations. If further testing is needed to evaluate this result, consider in-laboratory plasma potassium. Current Interpretive Data was last revised on 2022. Blood 05/19/2025 6:43 AM CDT 05/19/2025 6:58 AM CDT us Priti Landon [employer] LAB BLOOD ORDERABLES Final Res ult Performing Organization Address City/[facility]/ZIP Co de Phone Number PEPE RAMACHANDRAN [id number] [place] [address] * Prepare RBC: 4 Units (05/19/2025 6:24 AM CDT) Product code [id number] CERNER CH Unit Number [id number] 3-A CERNER CH Product Blood Type OPOS CERNER CH Dispense Status RETURNED CERNER CH Product code [id number] CERNER CH Unit Number [id number] 2-B CERNER CH Product Blood Type OPOS CERNER CH Dispense Status RETURNED CERNER CH Product code [id number] CERNER CH Unit Number [id number] 3-T CERNER CH Product Blood Type OPOS CERNER CH Dispense Status RETURNED CERNER CH Product code [id number] Unit Number [id number] 6-S CERNER CH Product Blood Type OPOS CERNER CH Dispense Status RETURNED CERNER CH Blood 05/19/2025 6:24 AM CDT Narrative CERNER CH - 05/20/2025 3:08 AM CDT Specify Procedure:->CABG Are special requirements needed? (All products are leukoreduced and CMV- safe)- >No Date required:-[id number] LRRBC # of [id number] Reasons:-Hold for procedure (specify procedure)} us Rick Camilo [employer] BLOOD BANK PRODUCT ORDERABL ES Final Result Performing Organization Address [facility] Co de Phone Number PEPE RAMACHANDRAN [address] [place] [address] * ECG 12 lead (05/08/2025 11:32 AM CDT) 05/08/2025 11:3 2 AM CDT Narrative [facility] - 05/08/2025 4:06 PM CDT Vent Rate: 65 bpm RR Interval: 910 msec UT Interval: 181 msec QRS Duration: 89 msec QT Interval: 341 msec QTC Interval: 353 msec P-R-T Browder: 99 - -14 - 33 degrees IMPRESSION: SINUS RHYTHM LOW QRS VOLTAGE IN PRECORDIAL LEADS ANTERIOR MYOCARDIAL INFARCTION , PROBABLY OLD ABNORMAL ECG NO CHANGE FROM PREVIOUS TRACING NOTED Electronically Signed By: Humberto Rosado MD us Jacoby Lantigua MD ECG ORDERABLES Final Result [facility] * XR Chest PA Lateral 2 View (05/08/2025 11:31 AM CDT) Anatomical Region Laterality Modality Body, Chest N/A Computed Radiogr aphy 05/08/2025 11:3 6 AM CDT Impressions 05/08/2025 11:36 AM CDT No active disease. Electronically signed by: Halley Moreno M.D. Narrative 05/08/2025 11:36 AM CDT EXAMINATION: XR CHEST PA LATERAL 2 VIEWS HISTORY: The patient is a 69-year-old male who presents with coronary artery disease. Comparison is made with the previous study dated 04/09/2025. TECHNIQUE: PA and lateral view of the chest. FINDINGS: Lungs clear. Cardiovascular structures unremarkable. Procedure Note Halley Moreno MD - 05/08/2025 EXAMINATION: XR CHEST PA LATERAL 2 VIEWS HISTORY: The patient is a 69-year-old male who presents with coronary artery disease. Comparison is made with the previous study dated 04/09/2025. TECHNIQUE: PA and lateral view of the chest. FINDINGS: Lungs clear. Cardiovascular structures unremarkable. IMPRESSION: No active disease. Electronically signed by: Halley Moreno M.D. us Jacoby Lantigua MD IMG XR PROCEDURES Final Resu lt * eGFR (05/08/2025 11:11 AM CDT) eGFR >90 >=60 mL/min/1. 73 m2 Comment: Interpretive Data Reference Interval Normal >/= 90 mL/min/1.73m2 Mildly decreased* 60 - 89 mL/min/1.73m2 Mildly to moderately decreased 45 - 59 mL/min/1.73m2 Moderately to severely decreased 30 - 44 mL/min/1.73m2 Severely decreased 15 - 29 mL/min/1.73m2 Kidney Failure < 15 mL/min/1.73m2 *Relative to young adult level Estimated glomerular filtration rate is determined by the 2020 CKD-EPI equation recommended by the National Kidney Foundation (A Unifying Approach to GFR Estimation: Recommendations of the NKF-ASK Task Force on Reassessing the Inclusion of Race in Diagnosing Kidney Disease, JASN 2020). The CKD-EPI equation should not be used for patients with unstable renal function and has not been validated in children and those over 70. Current interpretive data was last reviewed 2021. Blood 05/08/2025 11:1 1 AM CDT 05/08/2025 11:24 AM CDT Jacoby Lantigua MD LAB BLOOD ORDERABLES Final R esult [facility] [id number] Department [place] [address] * Urinalysis reflex to microscopic and culture Urine, clean voided (05/08/2025 11:11 AM CDT) Color, ur Yellow Yellow Clarity, ur Clear Clear PEPE Specific gravity, ur 1.006 1.003 - 1.030 PEPE pH, urine 6.0 PEPE Comment: Interpretive Data U rine pH is affected by diet, medications, systemic acid-base disturbances, and renal tubular function. pH may affect urinary stone formation. For example, urine pH below 6.0 may help reduce the tendency for calcium phosphate stones and pH greater than 6.0 may reduce the tendency for uric acid stone formation. Source: [facility] Current Interpretive Data was last revised on 2017 Protein, ur ql Negative Negative CERNER CH Glucose, ur ql Negative Negative CERNER CH Ketones, ur Negative Negative CERNER CH Bilirubin, ur Negative Negative CERNER CH Blood, ur Negative Negative CERNER CH Urobilinogen, ur <2.0 <2.0 mg/dL CERNER Nitrite, ur Negative Negative CERNER CH Leukocyte esterase, ur Negative Negative CERNER CH UA reflex comment Reflex conditions for microscopic UA and culture not met. PEPE Urine, clean voided 05/08/2025 11:11 AM CDT 05/08/2025 12:03 PM CDT Jacoby Lantigua MD LAB MICROBIOLOGY - GENERAL O RDERABLES Final Result Performing Organization Address [facility] de Phone Number PEPE [id number] [employer] [place], [place] [id number] * aPTT (05/08/2025 11:11 AM CDT) aPTT 30 26 - 38 sec Comment: Interpretive Data Heparin therapeutic range: 66.0 - 100.0 seconds. Range based on correlation with therapeutic heparin activity range of 0.3 - 0.7 Units/mL. Current interpretive data was last revised on 2023. Blood 05/08/2025 11:1 1 AM CDT 05/08/2025 11:24 AM CDT Jacoby Lantigua MD LAB BLOOD ORDERABLES Final R esult Performing Organization Address City/[facility] Co de Phone Number PEPE [phone] Department [place] [employer] [place] [address] * Protime-INR (05/08/2025 11:11 AM CDT) PT 11.8 10.2 - 13.5 sec INR 1.05 0.90 - 1.20 PEPE RAMACHANDRAN Comment: Interpretive data Oral anticoagulant therapeutic ranges: Venous thromboembolism prophylaxis or treatment: 2.0-3.0 CARDIOLOGY Standard range: 2.0-3.0 High-intensity range: 2.5-3.5 Refer to indication-specific guidelines for appropriate target ranges for prosthetic heart valve replacement. Current interpretive data was last revised on 2019. Blood 05/08/2025 11:1 1 AM CDT 05/08/2025 11:24 AM CDT Jacoby Lantigua MD LAB BLOOD ORDERABLES Final R esult Performing Organization Address [facility] Co de Phone Number PEPE RAMACHANDRAN [address] [place] [address] * CBC without differential (05/08/2025 11:11 AM CDT) WBC 9.88 3.80 - 9.90 K/cumm Hgb 14.7 13.0 - 17.5 g/dL [facility] Hct 45.0 38.9 - 50.3 % [facility] Plt 272 150 - 400 K/cumm [facility] MPV 9.4 9.1 - 12.3 fL [facility] RBC 4.74 4.30 - 5.80 M/cumm [facility] M[facility] 94.9 81.3 - 96.4 fL [facility] MCH 31.0 27.1 - 33.3 pg [facility] MCHC 32.7 32.3 - 35.7 g/dL [facility] RDW CV 12.5 11.1 - 14.9 % [facility] RDW SD 43.8 35.7 - 48.1 fL [facility] NRBC abs 0.00 0.00 - 0.01 K/cumm [facility] Blood 05/08/2025 11:1 1 AM CDT 05/08/2025 11:24 AM CDT Jacoby Lantigua MD LAB BLOOD ORDERABLES Final R esult Performing Organization Address City/[facility] Co de Phone Number PEPE RAMACHANDRAN [phone] [place] [address] * Type and screen (05/08/2025 11:11 AM CDT) Gloria, indirect Negative ABO Rh O Positive CERNER Blood 05/08/2025 11:1 1 AM CDT 05/08/2025 11:48 AM CDT Narrative CERNER CH - 05/08/2025 12:33 PM CDT Has the patient had Daratumumab or Isatuximab in the past 6 months?->Unknown Jacoby Lantigua MD LAB BLOOD BANK TEST ORDERABL ES Final Result [facility] [address] Department [place] [address] * (ABNORMAL) Basic metabolic panel (05/08/2025 11:11 AM CDT) Sodium 136 135 - 145 mmol/L Potassium, pl 4.4 3.3 - 4.9 mmol/L [facility] Chloride 101 97 - 110 mmol/L [facility] CO2 25 22 - 32 mmol/L CERNER Anion gap 10 2 - 15 mmol/L [facility] BUN 8 6 - 25 mg/dL [facility] Creatinine 0.79(L) 0.80 - 1.30 mg/dL [facility] Glucose 118 70 - 199 mg/dL [facility] Comment: Interpretive Data Fasting glucose >/= 126 mg/dl is diagnostic for diabetes. Fasting is defined as no caloric intake for at least 8 hours. Fasting glucose between 100 mg/dl to 125 mg/dl is diagnostic of prediabetes. In a patient with classic symptoms of hyperglycemia or hyperglycemic crisis, a random glucose >/= 200 mg/dl is diagnostic for diabetes. In the absence of unequivocal hyperglycemia, results should be confirmed by repeat testing. The classification and Diagnosis of Diabetes Diabetes Care 2021; 46: S19-S40. Current interpretive data was last revised 2022. Calcium 9.2 8.5 - 10.3 mg/dL CERNER Blood 05/08/2025 11:1 1 AM CDT 05/08/2025 11:24 AM CDT Jacoby Lantigua MD LAB BLOOD ORDERABLES Final R esult PEPE [id number] Department [place] [address] * XR Chest 1 View (04/09/2025 2:50 PM CDT) Anatomical Region Laterality Modality Body, Chest N/A Computed Radiogr aphy 04/09/2025 2:53 PM CDT Impressions 04/09/2025 2:53 PM CDT No pneumothorax. Electronically signed by: Halley Moreno M.D. Narrative 04/09/2025 2:53 PM CDT EXAMINATION: XR CHEST 1 VIEW HISTORY: The patient is a 69-year-old male who has had bronchoscopy. Comparison made with the previous study dated 04/09/2025. TECHNIQUE: AP portable view of the chest. FINDINGS: Heart not enlarged. Mild degree of vascular congestion. No focal consolidation. No pneumothorax seen. Procedure Note Halley Moreno MD - 04/09/2025 EXAMINATION: XR CHEST 1 VIEW HISTORY: The patient is a 69-year-old male who has had bronchoscopy. Comparison made with the previous study dated 04/09/2025. TECHNIQUE: AP portable view of the chest. FINDINGS: Heart not enlarged. Mild degree of vascular congestion. No focal consolidation. No pneumothorax seen. IMPRESSION: No pneumothorax. Electronically signed by: Halley Moreno M.D. us Monica Washington MD IMG XR PROCEDURES Final Result * XR Chest 1 View (04/09/2025 2:31 PM CDT) Anatomical Region Laterality Modality Body, Chest N/A Computed Radiogr aphy 04/09/2025 2:46 PM CDT Impressions 04/09/2025 2:46 PM CDT Findings as described above. Electronically signed by: Halley Moreno M.D. Narrative 04/09/2025 2:46 PM CDT EXAMINATION: XR CHEST 1 VIEW HISTORY: The patient is a 69-year-old male who has had bronchoscopy. TECHNIQUE: Multiple films were obtained with portable technique without radiologist supervision. Total fluoroscopy time is 4 2.2 seconds. FINDINGS: The submitted images reveals the bronchoscope tip in the right upper lobe bronchus and left main bronchus. Procedure Note Halley Moreno MD - 04/09/2025 EXAMINATION: XR CHEST 1 VIEW HISTORY: The patient is a 69-year-old male who has had bronchoscopy. TECHNIQUE: Multiple films were obtained with portable technique without radiologist supervision. Total fluoroscopy time is 4 2.2 seconds. FINDINGS: The submitted images reveals the bronchoscope tip in the right upper lobe bronchus and left main bronchus. IMPRESSION: Findings as described above. Electronically signed by: Halley Moreno M.D. Monica Washington MD IMG XR PROCEDURES Final Result * FL Fluoroscopy < 1 Hour (04/09/2025 2:30 PM CDT) Narrative RAD_PACS_ - 04/09/2025 2:31 PM CDT The images from this study are not interpreted by Radiology. Please refer to the physician's procedure / OR operative note. Monica Washington MD [facility] FLUOROSCOPY PROCEDU RES Final Result RAD_PACS_CH * Aerobic culture and gram stain Bronchoalveolar lavage Lobe, left upper (04/09/2025 2:24 PM CDT) Direct Specimen Exam Stain: Cytospin Gram stain shows: Rare polymorphonuclear leukocytes seen. No squamous epithelial cells seen. Other cellular material present. No organisms seen. Comment:Testing performed by : [facility], [address] [facility] [place] [address] Report Final Report: No growth PEPE RAMACHANDRAN Comment:Testing performed by : [facility], [address] [facility], [place]., [address] Bronchoalveolar lavage (Lobe, left upper) 04/09/2025 2:24 PM CDT 04/09/2025 4:25 PM CDT Narrative PEPE - 04/11/2025 9:49 AM CDT Testing performed by [facility] ([phone]) Specimens submitted from normally sterile body sites will have all bacterial morphotypes identified. Specimens that contain grossly mixed georges and/or are from body sites that are not normally sterile will be examined for Staphylococcus aureus, Pseudomonas aeruginosa, beta-hemolytic strep, vancomycin-resistant Enterococcus and fungus. If any of these are isolated, the organism will be reported. Current interpretive data was last revised on 2017. Monica Washington MD LAB MICROBIOLOGY - GENE RAL ORDERABLES Final Result PEPE RAMACHANDRAN [address] Department [place] [address] * Aerobic culture and gram stain Bronchoalveolar lavage Lobe, right upper (04/09/2025 2:24 PM CDT) Direct Specimen Exam Stain: Cytospin Gram stain shows: No polymorphonuclear leukocytes seen. No squamous epithelial cells seen. Other cellular material present. No organisms seen. Comment:Testing performed by : [facility], [address] [place]., [address] Report Final Report: No growth PEPE RAMACHANDRAN Comment:Testing performed by : [facility], [address] [place]., [address] Bronchoalveolar lavage (Lobe, right upper) 04/09/2025 2:24 PM CDT 04/09/2025 4:27 PM CDT Narrative PEPE - 04/11/2025 9:49 AM CDT Testing performed by [facility] ([phone]) Specimens submitted from normally sterile body sites will have all bacterial morphotypes identified. Specimens that contain grossly mixed georges and/or are from body sites that are not normally sterile will be examined for Staphylococcus aureus, Pseudomonas aeruginosa, beta-hemolytic strep, vancomycin-resistant Enterococcus and fungus. If any of these are isolated, the organism will be reported. Current interpretive data was last revised on 2017. Monica Washington MD LAB MICROBIOLOGY - GENE RAL ORDERABLES Final Result Performing Organization Address City/[facility]/ZIP Co de Phone Number PEPE RAMACHANDRAN [address] [facility] [place] [address] * Mycology (fungal) culture Bronchoalveolar lavage Lobe, left upper (04/09/2025 2:24 PM CDT) Report Final Report: No growth of fungus Comment:Testing performed by : [facility], [address] [place]., [address] Bronchoalveolar lavage (Lobe, left upper) 04/09/2025 2:24 PM CDT 04/09/2025 4:25 PM CDT Narrative [facility] - 05/07/2025 7:54 AM CDT Testing performed by [facility] ([phone]). Monica Washington MD LAB MICROBIOLOGY - GENE RAL ORDERABLES Final Result Performing Organization Address [facility] Co de Phone Number PAULINAMARY RAMACHANDRAN [address] Department [place] [address] * Mycology (fungal) culture Bronchoalveolar lavage Lobe, right upper (04/09/2025 2:24 PM CDT) Report Final Report: No growth of fungus Comment:Testing performed by : [facility], [address] [place]., [address] Bronchoalveolar lavage (Lobe, right upper) 04/09/2025 2:24 PM CDT 04/09/2025 4:27 PM CDT Narrative [facility] - 05/07/2025 7:54 AM CDT Testing performed by [facility] ([phone]). Monica Washintgon MD LAB MICROBIOLOGY - GENE RAL ORDERABLES Final Result Performing Organization Address City/[facility]/ZIP Co de Phone Number PAULINAMARY RAMACHANDRAN [address] Department [place] [address] * [place] AN ELECTIVE ENDOTRACHEAL AIRWAY (04/09/2025 1:11 PM CDT) Narrative Sulaiman Candelaria AA - 04/09/2025 1:11 PM CDT Sulaiman Candelaria AA 04/09/2025 1:11 PM Airway Patient location: OR Urgency: elective Date/time: 04/09/2025 12:59 PM Indications for airway management: anesthesia Difficult airway: no Staff: Supervising provider: Phi Morris DO Placed by: AA: Sulaiman Candelaria AA Emergent airway documentation: Risks and benefits discussed: yes Consent obtained: yes Consent given by: patient Airway prep: Preoxygenated: yes Patient position: sniffing Mask difficulty assessment: 2 - vent by mask + OA or adjuvant Spontaneous ventilation during airway: absent Sedation level during airway: GA Final airway details: Final airway type: endotracheal airway Tube type: ETT ETT size: 8.5 mm Cuffed: yes Technique used for successful ETT placement: direct laryngoscopy Devices/Methods used in placement: cricoid pressure and stylet Insertion site: oral Blade type: Denae Blade size: 4 Cormack-Lehane (direct): grade IIa - partial view of glottis Cuff volume: 7 mL Cuff inflated with: air ETT to lips: 22 cm Placement verified by: auscultation and CO2 detection Airway secured with: silk tape Number of attempts: 1 Phi Morris DO ANESTHESIA ORDERABLES Final Result * Bronchoscopy (04/09/2025 12:28 PM CDT) Anatomical Region Laterality Modality Other Narrative Procedure Note Monica Washington MD - 04/09/2025 12:28 PM CDT [facility] Endoscopy Lab Patient Name: Nasra Camargo Procedure Date: 04/09/2025 12:28 PM Date of : 1955 Admit Type: Outpatient Age: 69 Note Status: Finalized Procedure: Bronchoscopy Indications: Left upper lobe nodule, Right upper lobe nodule Providers: Monica Washington M.D., URSULA Wilks (Anesthesia Staff), Joyce Dan RN, Latricia Mendoza, Scheduler Maintenance Referring MD: Medicines: See the Anesthesia note for documentation of the administered medications Complications: No immediate complications. Estimated blood loss: None. No pneumothorax Procedure: Pre-Anesthesia Assessment: - A History and Physical has been performed.Patient meds and allergies have been reviewed. The risksand benefits of the procedure and the sedation optionsand risks were discussed with the patient. Allquestions were answered and informed consent was obtained. Patient identification and proposed procedure were verified prior to the procedure by the physician,the nurse, the ion implant machine operator and the software test technician in the procedure room. Mental Status Examination: alertand oriented. Airway Examination: normal oropharyngeal airway. Respiratory Examination: clear to auscultation. CV Examination: normal. ASA Grade Assessment: III - A patient with severe systemic disease. After reviewing the risks and benefits,the patient was deemed in satisfactory condition to undergo the procedure. The anesthesia plan was touse general anesthesia. Immediately prior to administration of medications, the patient was re-assessed for adequacy to receive sedatives. The heart rate, respiratory rate, oxygen saturations, blood pressure, adequacy of pulmonary ventilation,and response to care were monitored throughout the procedure. The physical status of the patient was re-assessed after the procedure. After obtaining informed consent and abovemedications administered by the physician provider, the Bronchoscope was introduced through the mouth, viathe endotracheal tube (the patient was intubated forthe procedure) and advanced to the tracheobronchialtree. the Bronchoscope was introduced through the mouth,via the endotracheal tube (the patient was intubatedfor the procedure) and advanced to the tracheobronchial tree. The procedure was accomplished without difficulty. The patient tolerated the procedurewell. The total duration of the procedure was 1 hour and29 minutes. Findings: The endotracheal tube is in good position. The visualized portion ofthe trachea is of normal caliber. The janki is sharp. Thetracheobronchial tree was examined to at least the first subsegmental level. Bronchial mucosa and anatomy are normal; there are no endobronchial lesions,and no secretions. Robotic bronchoscopy utilizing the Audanika robot platform was performed.The CT scan was used for planning purposes. A virtual bronchoscopic image was generated using the planning software. The target in the apical segment of the right upper lobe (located in the peripheral one-thirdof the lung) was identified and marked. A solid nodule 2.4 cm in sizewas found and a pathway was created. CT-body registration was thenachieved per standard workflows. Navigation to the lesion was performed. Robotic bronchoscopy utilizing the Audanika robot platform was performed.The CT scan was used for planning purposes. A virtual bronchoscopic image was generated using the planning software. The target in the leftupper lobe (located in the peripheral one-third of the lung) was identified and marked. A solid nodule 2.1 cm in size was found and a pathway was created. CT-body registration was then achieved per standardworkflows. Navigation to the lesion was performed. Positioning off-center (in relation to the lesion) was confirmedusing the Olympus radial ultrasound probe catheter. Rapid On-Site Evaluation (MARION): Preliminary cytology of the lesionin the apical segment of the right upper lobe was suggestive of benign inflammatory changes (final results are pending). Transbronchial needle aspirations of a solid nodule were performed in the apical segment of the right upper lobe using an Audanika Flexision 21 gauge needle and sent for routine cytology. The procedure was guidedby fluoroscopy. Transbronchial needle aspiration technique was selected because the sampling site was not visible endoscopically. Thesampling device penetrated the full thickness of the bronchial wall to obtainthe needle aspiration of lung tissue. 8 were obtained. Endobronchial biopsies of a solid nodule were performed in the apical segment of the right upper lobe using a Erby 1.1 mm cryoprobe using 6 seconds of freeze time and sent for histopathology examination. Five samples were obtained. The bronchoscope was advanced until wedged at the desired locationfor bronchoalveolar lavage. BAL was performed in the RUL apical segment(B1) of the lung and sent for routine cytology and bacterial, AFB andfungal analysis. 60 mL of fluid were instilled. 30 mL were returned. Thereturn was cellular. Rapid On-Site Evaluation (MARION): Preliminary cytology of the lesionin the left upper lobe was suggestive of benign inflammatory changes(final results are pending). Transbronchial needle aspirations of a solid nodule were performed in the left upper lobe using an Ion Flexision 21 gauge needle and sentfor routine cytology. The procedure was guided by fluoroscopy. Transbronchial needle aspiration technique was selected because the sampling site was not visible endoscopically. The sampling device penetrated the full thickness of the bronchial wall to obtain theneedle aspiration of lung tissue. 8 were obtained. The bronchoscope was advanced until wedged at the desired locationfor bronchoalveolar lavage. BAL was performed in the KRYSTIAN apical posterior segments (B1 & B2) of the lung and sent for routine cytology and bacterial, AFB and fungal analysis. 60 mL of fluid were instilled.The return was cellular. There were no mucoid plugs in the returnfluid. Lymph Nodes: The right lower paratracheal region (level 4R), leftlower paratracheal region (level 4L), subcarinal mediastinum (level 7),right hilar region (level 10R) and left hilar region (level 10L) nodes were endosonographically normal as examined by endobronchial ultrasound (EBUS). No pathologic lymphadenopathy was identified. Impression: - Left upper lobe nodule - Right upper lobe nodule - The airway examination was normal. - Robotic bronchoscopy utilizing the Ion robot platform was performed. - Robotic bronchoscopy utilizing the Audanika robot platform was performed. - Rapid On-Site Evaluation (MARION): Preliminary cytology of the lesion in the apical segment of the right upper lobe was suggestive of benigninflammatory changes (final results are pending). - A transbronchial needle aspiration wasperformed. - An endobronchial biopsy was performed. - Bronchoalveolar lavage was performed. - Rapid On-Site Evaluation (MARION): Preliminary cytology of the lesion in the left upper lobe was suggestive of benign inflammatory changes (final results are pending). - A transbronchial needle aspiration wasperformed. - Bronchoalveolar lavage was performed. Recommendation: - Await BAL, biopsy, culture and cytologyresults. Monica Washington M.D. 04/09/2025 3:00:47 PM Number of Addenda: 0 Note Initiated On: 04/09/2025 12:28 PM Monica Washington MD ENDOSCOPY PROCEDURES Ed ited Result - Final * Surgical pathology (04/09/2025 9:31 AM CDT) Tissue (Lung Biopsy) 04/09/2025 1:45 PM CDT Narrative PATHOLOGY - 04/14/2025 10:16 PM CDT EPIC results best viewed via link to PDF [facility] Department of Pathology [address] [place], [place] [id number] Note to Patients: This report may contain a detailed description of human tissue sent by a health care provider to the laboratory for pathologic evaluation. The content of this report is essential for diagnosis and may provide important critical findings. This information may be unfamiliar to patients to review without a medical professional present. It is advised that the patient review this report in the presence of a health care provider who can answer questions and explain the details. Final Report Patient Name: NASRA CAMARGO Address: [place] [address] Gender: M : 1955 (Age: 69) Service: Surgery Location: GI Lab Hospital #: [id number] Patient Type: [facility] Taken: 04/09/2025 Received: 04/10/2025 Accessioned: 04/10/2025 Reported: 04/14/2025 Physician(s):Edmund Velez M.D. Diagnosis: Lung, right upper lobe, transbronchial biopsy: - Chronic inflammation with focal granulomas (see microscopic description). - Special stains negative for acid-fast bacilli and fungi. Shona Aponte M.D. Report Electronically Reviewed and Signed Out By Shona Aponte M.D. 04/14/2025 22:16:37 Specimen(s) Received: A: Transbronchial cryo biopsy of RUL lung nodule Microscopic Description: Microscopic examination of the transbronchial biopsy, examined at multiple levels show fragments of lung parenchyma with focal chronic inflammation as well as a few non-necrotizing granulomas. I do not identify evidence of dysplasia or malignancy by routine light microscopy. Immunohistochemical stains are performed (with appropriate controls) to further evaluate this biopsy. The CD45 immunostain highlights the background lymphoid component, while the villa keratin AE1/AE 3 is negative for malignant epithelial component. The CD6 8 highlights the pulmonary macrophages. Special stains for acid-fast bacilli (AFB) and fungi (GMS) are performed and are negative. Recommend follow-up as clinically indicated. Intradepartmental consultation: Dr. Appiah has reviewed the slides and concurs. Clinical History: Lung nodule Procedure: bronchoscopy with endobronchial with guide <=2 lymph node ion robot bronchoscpy Gross Description: The specimen is submitted in a single formalin filled container labeled NASRA IVA and transbronchial biopsy RUL lung. It is 8 fragments of dark red tissue between 1 and 5 mm. All in one cassette. Guru Mcintosh R.N., P.A./Shona Aponte M.D. REPORT IMAGES AND SCANNED DOCUMENTS, IF INCLUDED, ONLY VIEWABLE IN PDF VERSION OF REPORT The performance characteristics of some immunohistochemical stains, fluorescence in-situ hybridization tests and immunophenotyping by flow cytometry cited in this report (if any) were determined by the Surgical Pathology Department at [facility] as part of an ongoing quality control representative program and in compliance with federally mandated regulations drawn from the Clinical Laboratory Improvement Act of 1988 (CLIA '88). Some of these tests rely on the use of analyte specific reagents and are subject to specific labeling requirements by the US Food and Drug Administration. Such diagnostic tests may only be performed in a facility that is certified by the Department of Health and Human Services as a high complexity laboratory under CLIA '88. The FDA has determined that such clearance or approval is not necessary. This test is used for clinical purposes. It should not be regarded as investigational or for research. Nevertheless, federal rules concerning the medical use of analyte specific reagents require that the following disclaimer be attached to the report: This test was developed and its performance characteristics determined by the Surgical Pathology Department [facility]. It has not been cleared or approved by the U. S. Food and Drug Administration. Note for decalcified specimens: This assay has not been validated on decalcified tissues. Results should be interpreted with caution given the possibility of false negativity on decalcified specimens us Monica Washington MD LAB PATHOLOGY ORDERABLE S Final Result PATHOLOGY [address] [place] [address] * Cytology (04/09/2025 12:00 AM CDT) Lymph Node (Cytology) 04/09/2025 04/09/2025 4:25 PM CDT Narrative 04/13/2025 9:16 PM CDT EPIC results best viewed via link to PDF [facility] Department of Pathology [address] [place] [address] Note to Patients: This report may contain a detailed description of human tissue sent by a health care provider to the laboratory for pathologic evaluation. The content of this report is essential for diagnosis and may provide important critical findings. This information may be unfamiliar to patients to review without a medical professional present. It is advised that the patient review this report in the presence of a health care provider who can answer questions and explain the details. Final Report Patient Name: NASRA CAMARGO Address: [address] [address] Gender: M : 1955 (Age: 69) Service: Gastro Location: [facility] Hospital # [id number] Patient Type: [facility] Taken: 04/09/2025 Received: 04/09/2025 Accessioned: 04/09/2025 Reported: 04/13/2025 Physician(s): Edmund Velez M.D. Diagnosis: A. Lung, right upper lobe, EBUS aspiration cytology: - Negative for malignancy. B. Lung, left upper lobe, EBUS aspiration cytology: - Negative for malignancy. Shona Aponte M.D. Report Electronically Reviewed and Signed Out By Shona Aponte M.D. 04/13/2025 21:16:37[facility] [place])Specimen(s) Received: A: FNA, Endobronchial ultrasound-guided, RUL Lung Nodule B: FNA, Endobronchial ultrasound-guided, KRYSTIAN Lung Nodule Clinical History: The patient is a 69 year old male with lung nodule. Immediate Assessment: A. Lung, RUL, EBUS: Pass #1 - Blood. Pass #2 - Blood. Pass #3 - Blood, acute inflammation. B. Lung, KRYSTIAN, EBUS: Pass #1 - Inflammation. Shona Aponte M.D. Gross Description: A: 1 container labeled RUL Lung Nodule received with 30 cc red fluid. 6 slides received from 3 passes. Entire specimen processed. 1 ThinPrep and 1 cell block made. B: 1 container labeled KRYSTIAN Lung Nodule received with 35 cc red fluid. 2 slides received from 1 pass. Entire specimen processed. 1 ThinPrep and 1 cell block made. Microscopic Description: A & B. Microscopic examination of the right upper lobe EBUS aspiration cytology (one ThinPrep slide, six smears and cell block sections and left upper lobe EBUS aspiration cytology (one ThinPrep slide, two smears and cell block sections) reveals specimens that are adequate for evaluation. The specimens consist of scattered benign respiratory epithelial cells in a background of mild acute inflammation. No malignant epithelial cells are seen. If this is of concern, recommend follow up with radiographic imaging and repeat sampling as clinically indicated. The performance characteristics of some immunohistochemical stains, fluorescence in-situ hybridization tests and immunophenotyping by flow cytometry cited in this report (if any) were determined by the Surgical Pathology Department at [facility] as part of an ongoing quality control representative program and in compliance with federally mandated regulations drawn from the Clinical Laboratory Improvement Act of 1988 (CLIA '88). Some of these tests rely on the use of analyte specific reagents and are subject to specific labeling requirements by the US Food and Drug Administration. Such diagnostic tests may only be performed in a facility that is certified by the Department of Health and Human Services as a high complexity laboratory under CLIA '88. The FDA has determined that such clearance or approval is not necessary. This test is used for clinical purposes. It should not be regarded as investigational or for research. Nevertheless, federal rules concerning the medical use of analyte specific reagents require that the following disclaimer be attached to the report: This test was developed and its performance characteristics determined by the Surgical Pathology Department [facility]. It has not been cleared or approved by the U. S. Food and Drug Administration. Unless otherwise noted all cytology processing, staining and screening is performed at [facility] ([address] [place] [address]). REPORT IMAGES AND SCANNED DOCUMENTS, IF INCLUDED, ONLY VIEWABLE IN PDF VERSION OF REPORT us Monica Washington MD LAB CYTOLOGY ORDERABLES Final Result * Cytology (04/09/2025 12:00 AM CDT) Bronch Lavage (Cytology) 04/09/2025 04/09/2025 4:21 PM CDT Narrative 04/13/2025 9:00 PM CDT EPIC results best viewed via link to PDF [facility] Department of Pathology [address] [place] [address] Note to Patients: This report may contain a detailed description of human tissue sent by a health care provider to the laboratory for pathologic evaluation. The content of this report is essential for diagnosis and may provide important critical findings. This information may be unfamiliar to patients to review without a medical professional present. It is advised that the patient review this report in the presence of a health care provider who can answer questions and explain the details. Final Report Patient Name: NASRA CAMARGO Address: [address] [address] Gender: M : 1955 (Age: 69) Service: Gastro Location: [facility] # [id number] Patient Type: [facility] Taken: 04/09/2025 Received: 04/09/2025 Accessioned: 04/09/2025 Reported: 04/13/2025 Physician(s): Edmund Velez M.D. Diagnosis: A. Lung, right upper lobe, BAL cytology: - Negative for malignancy. B. Lung, left upper lobe, BAL cytology: - Negative for malignancy. Shona Aponte M.D. Report Electronically Reviewed and Signed Out By Shona Aponte M.D. 04/13/2025 21:00:43Specimen(s) Received: A: Lavage, Bronchoalveolar, Right Upper Lobe B: Lavage, Bronchoalveolar, Left Upper Lobe Clinical History: The patient is a 69 year old male with lung nodule. Gross Description: A: 1 container received with 15 cc pink, unfixed mucoid fluid. 1 ThinPrep and 1 cell block made. B: 1 container received with 10 cc clear, unfixed mucoid fluid. 1 ThinPrep and 1 cell block made. Microscopic Description: A & B. Microscopic examination of the right upper and left upper lobe BAL cytology (one ThinPrep slide and cell block sections each) reveals specimens that are adequate for evaluation. It consists of mildly reactive respiratory epithelial cells in a background of pulmonary macrophages, some of which are pigmented and minimal inflammation. While there reactive changes, no malignant epithelial cells are seen. The performance characteristics of some immunohistochemical stains, fluorescence in-situ hybridization tests and immunophenotyping by flow cytometry cited in this report (if any) were determined by the Surgical Pathology Department at [facility] as part of an ongoing quality control representative program and in compliance with federally mandated regulations drawn from the Clinical Laboratory Improvement Act of 1988 (CLIA '88). Some of these tests rely on the use of analyte specific reagents and are subject to specific labeling requirements by the US Food and Drug Administration. Such diagnostic tests may only be performed in a facility that is certified by the Department of Health and Human Services as a high complexity laboratory under CLIA '88. The FDA has determined that such clearance or approval is not necessary. This test is used for clinical purposes. It should not be regarded as investigational or for research. Nevertheless, federal rules concerning the medical use of analyte specific reagents require that the following disclaimer be attached to the report: This test was developed and its performance characteristics determined by the Surgical Pathology Department [facility]. It has not been cleared or approved by the U. S. Food and Drug Administration. Unless otherwise noted all cytology processing, staining and screening is performed at [facility] ([address] [place] [address]). REPORT IMAGES AND SCANNED DOCUMENTS, IF INCLUDED, ONLY VIEWABLE IN PDF VERSION OF REPORT us Monica Washington MD LAB CYTOLOGY ORDERABLES Final Result * T-SPOT.TB Blood (04/01/2025 10:19 AM CDT) T-SPOT.TB Negative SeeBelow Comment: Normal Value: Negative A negative test result does not exclude the possibility of exposure to or infection with Mycobacterium tuberculosis (M. tuberculosis). Patients with recent exposure to TB infected individuals exhibiting a negative T-SPOT.TB result should be considered for retesting within 6 weeks or if other relevant clinical symptoms indicate. Results from T-SPOT.TB testing must be used in conjunction with each individual's epidemiological history, current medical status, and results of other diagnostic evaluations. The T-SPOT.TB test is qualitative and results are reported as positive, borderline or negative, given that the test controls perform as expected. In line with the Centers for Disease Control and Prevention's 2010 recommendation to report quantitative measurements alongside the qualitative result, the laboratory provides spot counts for informational purposes only. The T-SPOT.TB test should not be interpreted as a quantitative test. T-SPOT.TB Panel A Spot Count 0 [facility] T-SPOT.TB Panel B Spot Count 0 [facility] T-SPOT.TB Negative Control Passed [facility] T-SPOT.TB Positive Control Passed [facility] Comment: Test Performed at: [facility], [employer] [address] [place] [id number] JOSE MCGEE,PHD Blood 04/01/2025 10:1 9 AM CDT 04/01/2025 10:31 AM CDT us Yuri Washington MD LAB MICROBIOLOGY - GENE RAL ORDERABLES Final Result [facility] [address] [facility] Department [place] [address] * PET/CT FDG Skull to Thigh (03/26/2025 11:53 AM CDT) Anatomical Region Laterality Modality N/A Positron Emissio n Tomography (PET) 03/26/2025 4:26 PM CDT Impressions 03/27/2025 7:15 AM CDT 1. Moderate to markedly hypermetabolic spiculated irregular nodule/nodular opacities in the bilateral upper lobes and right lower lobe suspicious for primary versus metastatic bronchogenic carcinoma. 2. The opacities in the right upper lobe were present on the CT from 12/29/2024, but remain suspicious given their degree of activity 3. New left upper lobe nodule. 4. Subcentimeter superior segment right lower lobe pulmonary nodule, new from 12/29/2024 is more typical for an infectious or inflammatory lesion, but should be followed closely on future imaging. 3. Nonspecific FDG uptake in the prostate. Recommend correlation with PSA. Dictated by: Serjio Hennessy MD The radiology attending physician has personally reviewed this study, and had reviewed and/or edited this written report and agrees with it. Electronically signed by: DO Katiuska Flores 03/27/2025 7:15 AM CDT EXAMINATION: TUMOR FDG-PET/CT IMAGING DATE OF STUDY: 03/26/2025 SCANNER: [employer] RADIOPHARMACEUTICAL: 15.6 mCi F-18 Fluorodeoxyglucose (FDG) i.v. Injection site: Right antecubital HISTORY: 69-year-old with multiple pulmonary nodules. The study is requested for initial staging. Initial treatment strategy. TECHNIQUE: The patient's fasting blood glucose level, measured by glucometer before injection of FDG, was 90 mg/dL. After intravenous administration of FDG, noncontrast CT images were obtained for attenuation correction and for fusion with emission PET images to allow for anatomical localization of PET findings. Emission PET images were then obtained. The study was interpreted on the [employer] workstation. The mean liver SUV (reported for quality assurance test program manager purposes) is 2.5. The total scanned area was skull base to proximal thighs. Images of the body were obtained starting 63 minutes after injection of tracer. All reported SUVs are maximum SUVs, unless otherwise specified. COMPARISON: CT 03/19/2025, CT 12/29/2024, CT 2024 DESCRIPTORS OF LESION FDG AVIDITY: Minimal: <= blood pool Mild: > blood pool and <= liver Moderate: > liver and <= 2x SUVmax liver Moderate to marked: >2x SUVmax liver and <= 3x SUVmax liver Marked: > 3x SUVmax liver FINDINGS: There are multiple irregular pulmonary nodules in both lungs, includin.4 cm nodule/nodular opacity in the right lung apex with an SUV of 11.6 (image 74). Adjacent to it, there is a 2.2 cm nodule in the right upper lobe (image 77). Subpleural 2.1 cm nodule in the left upper lobe (image 91), new from 12/29/2024. 1.1 cm nodule in the right lower lobe (image 101), new from 12/29/2024. The right apical nodule/nodular opacities are new from 2024, though they appear similar to the CT from 12/29/2024. There is a 6 mm nodule in the superior segment of the right lower lobe (image 88). Degenerative uptake is noted in the right glenohumeral joint. No hypermetabolic lymphadenopathy is observed. There is nonspecific FDG uptake in the prostate. Additional CT findings: Bilateral lens replacements. Right upper lobe calcified granuloma. Calcified mediastinal nodes likely sequela of chronic granulomatous disease. Multivessel coronary artery calcifications. Background of emphysema. Aortobiiliac atherosclerotic calcifications. Dystrophic calcifications in the prostate. Degenerative changes of the thoracolumbar spine. Procedure Note Silvio Geronimo DO - 03/27/2025 EXAMINATION: TUMOR FDG-PET/CT IMAGING DATE OF STUDY: 03/26/2025 SCANNER: [employer] RADIOPHARMACEUTICAL: 15.6 mCi F-18 Fluorodeoxyglucose (FDG) i.v. Injection site: Right antecubital HISTORY: 69-year-old with multiple pulmonary nodules. The study is requested for initial staging. Initial treatment strategy. TECHNIQUE: The patient's fasting blood glucose level, measured by glucometer before injection of FDG, was 90 mg/dL. After intravenous administration of FDG, noncontrast CT images were obtained for attenuation correction and for fusion with emission PET images to allow for anatomical localization of PET findings. Emission PET images were then obtained. The study was interpreted on the [employer] workstation. The mean liver SUV (reported for quality assurance test program manager purposes) is 2.5. The total scanned area was skull base to proximal thighs. Images of the body were obtained starting 63 minutes after injection of tracer. All reported SUVs are maximum SUVs, unless otherwise specified. COMPARISON: CT 03/19/2025, CT 12/29/2024, CT 2024 DESCRIPTORS OF LESION FDG AVIDITY: Minimal: <= blood pool Mild: > blood pool and <= liver Moderate: > liver and <= 2x SUVmax liver Moderate to marked: >2x SUVmax liver and <= 3x SUVmax liver Marked: > 3x SUVmax liver FINDINGS: There are multiple irregular pulmonary nodules in both lungs, includin.4 cm nodule/nodular opacity in the right lung apex with an SUV of 11.6 (image 74). Adjacent to it, there is a 2.2 cm nodule in the right upper lobe (image 77). Subpleural 2.1 cm nodule in the left upper lobe (image 91), new from 12/29/2024. 1.1 cm nodule in the right lower lobe (image 101), new from 12/29/2024. The right apical nodule/nodular opacities are new from 2024, though they appear similar to the CT from 12/29/2024. There is a 6 mm nodule in the superior segment of the right lower lobe (image 88). Degenerative uptake is noted in the right glenohumeral joint. No hypermetabolic lymphadenopathy is observed. There is nonspecific FDG uptake in the prostate. Additional CT findings: Bilateral lens replacements. Right upper lobe calcified granuloma. Calcified mediastinal nodes likely sequela of chronic granulomatous disease. Multivessel coronary artery calcifications. Background of emphysema. Aortobiiliac atherosclerotic calcifications. Dystrophic calcifications in the prostate. Degenerative changes of the thoracolumbar spine. IMPRESSION: 1. Moderate to markedly hypermetabolic spiculated irregular nodule/nodular opacities in the bilateral upper lobes and right lower lobe suspicious for primary versus metastatic bronchogenic carcinoma. 2. The opacities in the right upper lobe were present on the CT from 12/29/2024, but remain suspicious given their degree of activity 3. New left upper lobe nodule. 4. Subcentimeter superior segment right lower lobe pulmonary nodule, new from 12/29/2024 is more typical for an infectious or inflammatory lesion, but should be followed closely on future imaging. 3. Nonspecific FDG uptake in the prostate. Recommend correlation with PSA. Dictated by: Serjio Hennessy MD The radiology attending physician has personally reviewed this study, and had reviewed and/or edited this written report and agrees with it. Electronically signed by: Silvio Geronimo DO us Cristal Castorena [employer] IMG PET PROCEDURES Final Result * ECG 12 lead (03/24/2025 9:45 AM CDT) 03/24/2025 9:45 AM CDT Narrative [facility] - 03/24/2025 12:41 PM CDT Vent Rate: 56 bpm RR Interval: 1059 msec UT Interval: 186 msec QRS Duration: 87 msec QT Interval: 413 msec QTC Interval: 405 msec P-R-T Browder: 73 - -12 - 68 degrees IMPRESSION: SINUS BRADYCARDIA LOW QRS VOLTAGE IN PRECORDIAL LEADS ANTERIOR MYOCARDIAL INFARCTION , OF INDETERMINATE AGE OR POOR R-WAVE PROGRESSION ABNORMAL ECG Electronically Signed By: Mychal Childers MD us Jacoby Lantigua MD ECG ORDERABLES Final Result [facility] * XR Chest PA Lateral 2 View (03/24/2025 9:29 AM CDT) Anatomical Region Laterality Modality Body, Chest N/A Computed Radiogr aphy 03/24/2025 9:47 AM CDT Impressions 03/24/2025 9:47 AM CDT No pneumothorax or pleural effusion. Cardiomediastinal silhouette within normal limits. Patchy nodules in the bilateral upper lobes concerning for metastatic disease appears similar and were were better appreciated on comparison CT from 03/19/2025. Continued follow-up suggested. Electronically signed by: Raman Angulo II, D.O. Narrative 03/24/2025 9:47 AM CDT EXAMINATION: XR CHEST PA LATERAL 2 VIEWS DATE: 03/24/2025 9:15 AM INDICATION: Coronary artery disease. COMPARISON: 12/29/2024. Procedure Note Raman Angulo II, DO - 03/24/2025 EXAMINATION: XR CHEST PA LATERAL 2 VIEWS DATE: 03/24/2025 9:15 AM INDICATION: Coronary artery disease. COMPARISON: 12/29/2024. IMPRESSION: No pneumothorax or pleural effusion. Cardiomediastinal silhouette within normal limits. Patchy nodules in the bilateral upper lobes concerning for metastatic disease appears similar and were were better appreciated on comparison CT from 03/19/2025. Continued follow-up suggested. Electronically signed by: Raman Angulo II, D.O. us Jacoby Lantigua MD IMG XR PROCEDURES Final Resu lt * eGFR (03/24/2025 9:16 AM CDT) eGFR >90 >=60 mL/min/1. 73 m2 Comment: Interpretive Data Reference Interval Normal >/= 90 mL/min/1.73m2 Mildly decreased* 60 - 89 mL/min/1.73m2 Mildly to moderately decreased 45 - 59 mL/min/1.73m2 Moderately to severely decreased 30 - 44 mL/min/1.73m2 Severely decreased 15 - 29 mL/min/1.73m2 Kidney Failure < 15 mL/min/1.73m2 *Relative to young adult level Estimated glomerular filtration rate is determined by the 2020 CKD-EPI equation recommended by the National Kid[employer] (A Unifying Approach to GFR Estimation: Recommendations of the NKF-ASK Task Force on Reassessing the Inclusion of Race in Diagnosing Kidney Disease, JASN 2020). The CKD-EPI equation should not be used for patients with unstable renal function and has not been validated in children and those over 70. Current interpretive data was last reviewed 2021. Blood 03/24/2025 9:16 AM CDT 03/24/2025 9:36 AM CDT us Jacoby Lantigua MD LAB BLOOD ORDERABLES Final R esult [facility] [id number] Department [place] [address] * Differential, auto (03/24/2025 9:16 AM CDT) Neutrophil abs 5.17 1.50 - 6.50 K/cumm Imm gran abs 0.04 0.00 - 0.10 K/cumm [facility] Lymphocyte abs 2.45 0.80 - 3.30 K/cumm [facility] Monocyte abs 0.75 0.20 - 0.80 K/cumm [facility] Eosinophil abs 0.19 0.00 - 0.50 K/cumm [facility] Basophil abs 0.05 0.00 - 0.10 K/cumm [facility] Neutrophil pct 59.7 % [facility] Comment: Interpretive Data Percent cell count reference ranges are not reported, since discordance with absolute values may lead to misinterpretation of CBC data. Current Interpretive Data was last revised on 2017. Imm gran pct 0.5 % [facility] Comment: Interpretive Data Percent cell count reference ranges are not reported, since discordance with absolute values may lead to misinterpretation of CBC data. Current Interpretive Data was last revised on 2017. Lymphocyte pct 28.3 % [facility] Comment: Interpretive Data Percent cell count reference ranges are not reported, since discordance with absolute values may lead to misinterpretation of CBC data. Current Interpretive Data was last revised on 2017. Monocyte pct 8.7 % [facility] Comment: Interpretive Data Percent cell count reference ranges are not reported, since discordance with absolute values may lead to misinterpretation of CBC data. Current Interpretive Data was last revised on 2017. Eosinophil pct 2.2 % [facility] Comment: Interpretive Data Percent cell count reference ranges are not reported, since discordance with absolute values may lead to misinterpretation of CBC data. Current Interpretive Data was last revised on 2017. Basophil pct 0.6 % [facility] Comment: Interpretive Data Percent cell count reference ranges are not reported, since discordance with absolute values may lead to misinterpretation of CBC data. Current Interpretive Data was last revised on 2017. Blood 03/24/2025 9:16 AM CDT 03/24/2025 9:36 AM CDT us Jacoby Lantigua MD LAB BLOOD ORDERABLES Final R esult [facility] [id number] [address] Department [place] [address] * Urinalysis reflex to microscopic and culture Urine (03/24/2025 9:16 AM CDT) Color, ur Straw Yellow Clarity, ur Clear Clear [facility] Specific gravity, ur 1.005 1.003 - 1.030 [facility] pH, urine 6.0 [facility] Comment: Interpretive Data U rine pH is affected by diet, medications, systemic acid-base disturbances, and renal tubular function. pH may affect urinary stone formation. For example, urine pH below 6.0 may help reduce the tendency for calcium phosphate stones and pH greater than 6.0 may reduce the tendency for uric acid stone formation. Source: [facility] Current Interpretive Data was last revised on 2017 Protein, ur ql Negative Negative [facility] Glucose, ur ql Negative Negative [facility] Ketones, ur Negative Negative [facility] Bilirubin, ur Negative Negative [facility] Blood, ur Negative Negative [facility] Urobilinogen, ur <2.0 <2.0 mg/dL [facility] Nitrite, ur Negative Negative [facility] Leukocyte esterase, ur Negative Negative [facility] UA reflex comment Reflex conditions for microscopic UA and culture not met. [facility] Urine 03/24/2025 9:16 AM CDT 03/24/2025 10:17 AM CDT Jacoby Lantigua MD LAB MICROBIOLOGY - GENERAL O RDERABLES Final Result [facility] [id number] [address] Department [place] [address] * (ABNORMAL) CBC with auto differential (03/24/2025 9:16 AM CDT) WBC 8.65 3.80 - 9.90 K/cumm Hgb 14.7 13.0 - 17.5 g/dL [facility] Hct 45.7 38.9 - 50.3 % [facility] Plt 318 150 - 400 K/cumm [facility] MPV 9.4 9.1 - 12.3 fL [facility] RBC 4.81 4.30 - 5.80 M/cumm [facility] MCV 95.0 81.3 - 96.4 fL [facility] MCH 30.6 27.1 - 33.3 pg [facility] MCHC 32.2(L) 32.3 - 35.7 g/dL [facility] RDW CV 12.7 11.1 - 14.9 % [facility] RDW SD 45.2 35.7 - 48.1 fL [facility] NRBC abs 0.00 0.00 - 0.01 K/cumm [facility] Blood 03/24/2025 9:16 AM CDT 03/24/2025 9:36 AM CDT Jacoby Lantigua MD LAB BLOOD ORDERABLES Final R esult Performing Organization Address [facility] de Phone Number [facility] [id number] [address] [place] [employer] [place] [address] * aPTT (03/24/2025 9:16 AM CDT) aPTT 32 28 - 38 sec Comment: Interpretive Data Heparin therapeutic range: 66.0 - 100.0 seconds. Range based on correlation with therapeutic heparin activity range of 0.3 - 0.7 Units/mL. Current interpretive data was last revised on 2023. Blood 03/24/2025 9:16 AM CDT 03/24/2025 9:36 AM CDT Jacoby Lantigua MD LAB BLOOD ORDERABLES Final R esult Performing Organization Address [facility] Co de Phone Number [facility] [id number] [address] [place] [employer] [address] * Protime-INR (03/24/2025 9:16 AM CDT) PT 11.1 9.7 - 13.0 sec INR 1.03 0.90 - 1.20 [facility] Comment: Interpretive data Oral anticoagulant therapeutic ranges: Venous thromboembolism prophylaxis or treatment: 2.0-3.0 CARDIOLOGY Standard range: 2.0-3.0 High-intensity range: 2.5-3.5 Refer to indication-specific guidelines for appropriate target ranges for prosthetic heart valve replacement. Current interpretive data was last revised on 2019. Blood 03/24/2025 9:16 AM CDT 03/24/2025 9:36 AM CDT Jacoby Lantigua MD LAB BLOOD ORDERABLES Final R esult Performing Organization Address [facility] Co de Phone Number [facility] [address] [address] [place] [employer] [address] * Type and screen (03/24/2025 9:16 AM CDT) Pathologist [facility] Gloria, indirect Negative ABO Rh O Positive [facility] Blood 03/24/2025 9:16 AM CDT 03/24/2025 9:51 AM CDT Narrative [facility] - 03/24/2025 10:31 AM CDT Has the patient had Daratumumab or Isatuximab in the past 6 months?->Unknown Jacoby Lantigua MD LAB BLOOD BANK TEST ORDERABL ES Final Result Performing Organization Address [facility] de Phone Number [facility] [address] [place] [address] * Basic metabolic panel (03/24/2025 9:16 AM CDT) Sodium 137 135 - 145 mmol/L Potassium, pl 4.3 3.3 - 4.9 mmol/L [facility] Chloride 102 97 - 110 mmol/L [facility] CO2 25 22 - 32 mmol/L [facility] Anion gap 10 2 - 15 mmol/L [facility] BUN 9 6 - 25 mg/dL [facility] Creatinine 0.88 0.80 - 1.30 mg/dL [facility] Glucose 123 70 - 199 mg/dL [facility] Comment: Interpretive Data Fasting glucose >/= 126 mg/dl is diagnostic for diabetes. Fasting is defined as no caloric intake for at least 8 hours. Fasting glucose between 100 mg/dl to 125 mg/dl is diagnostic of prediabetes. In a patient with classic symptoms of hyperglycemia or hyperglycemic crisis, a random glucose >/= 200 mg/dl is diagnostic for diabetes. In the absence of unequivocal hyperglycemia, results should be confirmed by repeat testing. The classification and Diagnosis of Diabetes Diabetes Care 202; 46: S19-S40. Current interpretive data was last revised 2022. Calcium 9.1 8.5 - 10.3 mg/dL [facility] Blood 03/24/2025 9:16 AM CDT 03/24/2025 9:36 AM CDT us Jacoby Lantigua MD LAB BLOOD ORDERABLES Final R esult [facility] [address] [address] Department [place] [address] * CTA Head Neck W WO Contrast (03/19/2025 3:12 PM CDT) Anatomical Region Laterality Modality Head and Neck N/A Computed Tomogra phy 03/19/2025 3:54 PM CDT Impressions 03/19/2025 3:54 PM CDT 1. No acute intracranial hemorrhage. 2. 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 3. The M1 and proximal M2 branches of the right middle cerebral arteries appear patent. Attenuation and/or occlusion of more distal right middle cerebral artery branches in the area of prior infarct with vascular paucity in this region. 4. Multiple nodular opacities in the bilateral upper lobes, also demonstrated on same day concurrently obtained CT chest. Please refer to this separately dictated report for further details. Electronically signed by: Aisha Dinero DO Narrative 03/19/2025 3:54 PM CDT EXAMINATION: Computed tomography angiography (CTA) of the head without and with contrast Computed tomography angiography (CTA) of the neck with contrast HISTORY: 69-year-old male with history of infarct TECHNIQUE: Computed tomography of the head was performed without contrast according to standard protocol. Computed tomographic angiography was then obtained from the aortic arch to the vertex following the uneventful administration of intravenous contrast. 3D images were generated on a dedicated workstation. Contrast information: 88 mL [id number] COMPARISON: MRI brain dated 12/31/2024 from [facility], CT head dated 12/29/2024 from [facility] FINDINGS: There is no acute intracranial hemorrhage. 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 Generalized parenchymal volume loss with ex vacuo ventricular dilation. No significant mass effect or midline shift is present. Periventricular white matter hypoattenuation is nonspecific but likely represents chronic microvascular changes. Atherosclerosis of the intracranial arteries. Partially empty sella. Bilateral lens replacements. The mastoid air cells are clear. Minimal scattered mucosal thickening of the visualized paranasal sinuses. No acute fractures are identified. Scattered subcentimeter lymph nodes are seen in the neck. None are pathologically enlarged or abnormally enhancing. The muscles of the neck are normal. Fascial planes are preserved and the deep spaces of the neck are normal. The visualized airway is patent. Multilevel degenerative changes in the visualized spine. Multiple nodular opacities in the bilateral upper lobes, also demonstrated on same day concurrently obtained CT chest. Emphysematous changes are present. Angiographic findings: The visualized aortic arch appears atherosclerotic with normal configuration of the great vessels. The innominate artery and both subclavian arteries are atherosclerotic without significant stenosis. The common carotid arteries are atherosclerotic without significant stenosis. The bilateral cervical internal carotid arteries are atherosclerotic at their origins with less than 50% stenosis. The bilateral intracranial internal carotid arteries are patent with atherosclerosis throughout their course, greatest in the carotid siphons, without significant stenosis. The bilateral anterior cerebral arteries are patent without significant stenosis. The left middle cerebral artery is patent without significant stenosis. The M1 and proximal M2 branches of the right middle cerebral arteries appear patent. There is attenuation and/or occlusion of more distal right middle cerebral artery branches in the area of prior infarct with vascular paucity in this region. The left vertebral artery appears slightly dominant and the vertebral arteries are patent. The basilar artery is patent. The bilateral posterior cerebral arteries are patent without significant stenosis. There is no aneurysm or vascular malformation identified. Procedure Note Aisha Baker, DO - 03/19/2025 EXAMINATION: Computed tomography angiography (CTA) of the head without and with contrast Computed tomography angiography (CTA) of the neck with contrast HISTORY: 69-year-old male with history of infarct TECHNIQUE: Computed tomography of the head was performed without contrast according to standard protocol. Computed tomographic angiography was then obtained from the aortic arch to the vertex following the uneventful administration of intravenous contrast. 3D images were generated on a dedicated workstation. Contrast information: 88 mL [id number] COMPARISON: MRI brain dated 12/31/2024 from [facility], CT head dated 12/29/2024 from [facility] FINDINGS: There is no acute intracranial hemorrhage. 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 Generalized parenchymal volume loss with ex vacuo ventricular dilation. No significant mass effect or midline shift is present. Periventricular white matter hypoattenuation is nonspecific but likely represents chronic microvascular changes. Atherosclerosis of the intracranial arteries. Partially empty sella. Bilateral lens replacements. The mastoid air cells are clear. Minimal scattered mucosal thickening of the visualized paranasal sinuses. No acute fractures are identified. Scattered subcentimeter lymph nodes are seen in the neck. None are pathologically enlarged or abnormally enhancing. The muscles of the neck are normal. Fascial planes are preserved and the deep spaces of the neck are normal. The visualized airway is patent. Multilevel degenerative changes in the visualized spine. Multiple nodular opacities in the bilateral upper lobes, also demonstrated on same day concurrently obtained CT chest. Emphysematous changes are present. Angiographic findings: The visualized aortic arch appears atherosclerotic with normal configuration of the great vessels. The innominate artery and both subclavian arteries are atherosclerotic without significant stenosis. The common carotid arteries are atherosclerotic without significant stenosis. The bilateral cervical internal carotid arteries are atherosclerotic at their origins with less than 50% stenosis. The bilateral intracranial internal carotid arteries are patent with atherosclerosis throughout their course, greatest in the carotid siphons, without significant stenosis. The bilateral anterior cerebral arteries are patent without significant stenosis. The left middle cerebral artery is patent without significant stenosis. The M1 and proximal M2 branches of the right middle cerebral arteries appear patent. There is attenuation and/or occlusion of more distal right middle cerebral artery branches in the area of prior infarct with vascular paucity in this region. The left vertebral artery appears slightly dominant and the vertebral arteries are patent. The basilar artery is patent. The bilateral posterior cerebral arteries are patent without significant stenosis. There is no aneurysm or vascular malformation identified. IMPRESSION: 1. No acute intracranial hemorrhage. 2. 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 3. The M1 and proximal M2 branches of the right middle cerebral arteries appear patent. Attenuation and/or occlusion of more distal right middle cerebral artery branches in the area of prior infarct with vascular paucity in this region. 4. Multiple nodular opacities in the bilateral upper lobes, also demonstrated on same day concurrently obtained CT chest. Please refer to this separately dictated report for further details. Electronically signed by: Aisha Dinero DO us Jacoby Lantigua MD IMG CT PROCEDURES Final Resu lt * CT chest without contrast (03/19/2025 2:59 PM CDT) Anatomical Region Laterality Modality Body N/A Computed Tomogra phy 03/19/2025 5:16 PM CDT Impressions 03/19/2025 5:16 PM CDT NUMEROUS BILATERAL PULMONARY LESIONS OF VARIABLE SIZES APPEARANCE IS AND DISTRIBUTION HIGHLY SUGGESTIVE OF PULMONARY METASTATIC DISEASE. Electronically signed by: Pavan De León M.D. Narrative 03/19/2025 5:16 PM CDT EXAMINATION: CT CHEST WO CONTRAST HISTORY: Syncope ST segment elevated NV ORDER DATE: 03/19/2025 3:15 PM TECHNIQUE: Multiple axial images of the chest were obtained with 2-D imaging without the administration of contrast. Evaluation of the mediastinum and balta for adenopathy and other pathology is significantly limited by the lack of intravascular contrast. FINDINGS: Lungs and Central Bronchi: There are 2 irregular somewhat stellate appearing and possibly spiculated opacities in the posterior right upper lobe which are noted on series 4 images 27 through 34. Each having a long axis measurement of about 18 mm. There is a 3rd similar-appearing pleural-based lesion in the anterior left upper lobe on series 4 image 49 This latter lesion could have some minor cavitation. There is a 5 mm calcified granuloma in the right middle there is a 5 mm spiculated nodule in superior segment of the right lower lobe series 4 image 67 there are similar nodule appears to be possibly present at the juncture of the minor fissure with the lateral pleura in the right lung. Pleura: within normal limits. Vessels: There are moderate atherosclerotic calcifications in the ascending aorta and coronary arteries. Heart: normal size. No pericardial effusion. Mediastinum and Balta: No sign of adenopathy Chest Wall and Lower Neck: within normal limits. Upper Abdomen: (As visualized) within normal limits. Bones: Mild kyphosis and moderate degenerative changes diffusely throughout the dorsal spine Procedure Note Pavan De León MD - 03/19/2025 EXAMINATION: CT CHEST WO CONTRAST HISTORY: Syncope ST segment elevated NV ORDER DATE: 03/19/2025 3:15 PM TECHNIQUE: Multiple axial images of the chest were obtained with 2-D imaging without the administration of contrast. Evaluation of the mediastinum and balta for adenopathy and other pathology is significantly limited by the lack of intravascular contrast. FINDINGS: Lungs and Central Bronchi: There are 2 irregular somewhat stellate appearing and possibly spiculated opacities in the posterior right upper lobe which are noted on series 4 images 27 through 34. Each having a long axis measurement of about 18 mm. There is a 3rd similar-appearing pleural-based lesion in the anterior left upper lobe on series 4 image 49 This latter lesion could have some minor cavitation. There is a 5 mm calcified granuloma in the right middle there is a 5 mm spiculated nodule in superior segment of the right lower lobe series 4 image 67 there are similar nodule appears to be possibly present at the juncture of the minor fissure with the lateral pleura in the right lung. Pleura: within normal limits. Vessels: There are moderate atherosclerotic calcifications in the ascending aorta and coronary arteries. Heart: normal size. No pericardial effusion. Mediastinum and Balta: No sign of adenopathy Chest Wall and Lower Neck: within normal limits. Upper Abdomen: (As visualized) within normal limits. Bones: Mild kyphosis and moderate degenerative changes diffusely throughout the dorsal spine IMPRESSION: NUMEROUS BILATERAL PULMONARY LESIONS OF VARIABLE SIZES APPEARANCE IS AND DISTRIBUTION HIGHLY SUGGESTIVE OF PULMONARY METASTATIC DISEASE. Electronically signed by: Pavan De León M.D. us Jacoby Lantigua MD IMG CT PROCEDURES Final Resu lt * PSA screen (12/11/2024 11:11 AM CDT) PSA-Total 0.96 <=5.40 ng/mL Comment: Interpretive Data AGE SEX REFERENCE INTERVAL 0 minutes-150 years Female None 0 minutes-49 years Male None 50-59 years Male 0-3.90 60-69 years Male 0-5.40 70-79 years Male 0-6.20 80-150 years Male 0-6.20 The Arlette PSA Total assay procedure was used. Results from different manufacturers or methods may not be comparable. Serial testing should be performed using the same method. Current interpretive data last revised 22. Blood 12/11/2024 11:1 1 AM CDT 12/11/2024 1:12 PM CDT Rafael Motta MD LAB BLOOD ORDERABLES Final Resul t Performing Organization Address City/[facility] Co de Phone Number [facility]) [address] [place] [address] [place] [address] * Hepatitis C antibody Blood (12/11/2024 11:11 AM CDT) Hep C Ab Nonreactive Nonreactive Comment: Interpretive Data Nonreactive: Antibodies to HCV not detected. Does NOT exclude the possibility of recent exposure to HCV. Equivocal: Equivocal for HCV antibodies. Supplemental molecular testing will be automatically performed to determine infection status in accordance with current CDC screening recommendations. Reactive: Positive for HCV antibodies. This may represent current or past HCV infection. Supplemental molecular testing will be automatically performed to determine current infection status in accordance with current CDC screening recommendations. Interpretive data was last revised on 2019. Testing performed by: [facility], [address] [place] [address]., [id number] Blood 12/11/2024 11:1 1 AM CDT 12/11/2024 9:53 PM CDT Rafael Motta MD LAB MICROBIOLOGY - GENERAL ORDER SANTO Final Result Performing Organization Address [facility] de Phone Number [facility]) [address] [place] [address] [place] [address] * COLONOSCOPY (03/13/2023 7:08 AM CDT) Anatomical Region Laterality Modality Other Narrative Procedure Note Cleo Higgins MD - 03/13/2023 7:08 AM CDT [facility] Patient Name: Nasra Camargo Procedure Date: 03/13/2023 7:08 AM Date of : 1955 Admit Type: Outpatient Age: 67 Gender: Male Attending MD: Cleo Higgins M.D. Room: [facility] ENDOSCOPY ROOM 1 Note Status: Finalized Patient Profile: This is a 67 year old male. Patient has multiple adenoma polyps removed 6 months ago including large polypoid lesion in the hepatic flexure. Here for evaluation and remove some residual polyps left evaluate the larger lesion for possible excision. Procedure: Colonoscopy Indications: Last colonoscopy: September 2022, Therapeuticprocedure for known colon adenoma Referring MD: Rafael Motta M.D. Providers: Cleo Higgins M.D. Impression: - Four 8 to 12 mm polyps in the ascending colon, removed with a snare. Resected and retrieved. - One approximately 35 mm polypoid lesion withcentral depression at the hepatic flexure. Biopsied.Tattooed. - Two 5 to 6 mm polyps in the descending colon, removed with a cold snare. Resected andretrieved. - Four 3 to 8 mm polyps in the rectum and in the sigmoid colon, removed with a jumbo cold forceps or cold snare. Resected and retrieved. - Diverticulosis in the sigmoid colon, in the descending colon and in the transverse colon. - Internal hemorrhoids. Recommendation: - Await pathology results. - Repeat colonoscopy in 1 year for surveillance. - Continue present medications. - Refer to general surgery for the large polypoid lesion in the hepatic as this will require surgical resection Medicines: Monitored Anesthesia Care Complications: No immediate complications. Estimated Blood Loss: Estimated blood loss: none. Procedure: Pre-Anesthesia Assessment: - Prior to the procedure, a History and Physicalwas performed, and patient medications and allergieswere reviewed. The patient's tolerance of previous anesthesia was also reviewed. The risks andbenefits of the procedure and the sedation options and risks were discussed with the patient. All questions were answered, and informed consent was obtained. Prior Anticoagulants: The patient has taken noanticoagulant or antiplatelet agents. ASA Grade Assessment: III -A patient with severe systemic disease. Afterreviewing the risks and benefits, the patient was deemed in satisfactory condition to undergo the procedure. The benefits, risks and alternatives of theprocedure and sedation were discussed and informed consentwas obtained. All questions were answered. Please referto the signed informed consent document in the medical record. The bowel preparation used was Miralax via split dose instruction. The bowel preparation usedwas bisacodyl tablets via split dose instruction. The scope was passed under direct vision. The Pediatric Colonoscope PCF-H190L [id number] was introducedthrough the anus and advanced to the the cecum, identifiedby appendiceal orifice and ileocecal valve. Thequality of the bowel preparation was good. Bowel prep was administered using a split dose. Findings: The perianal and digital rectal examinations were normal. The cecum appeared normal. Four sessile polyps were found in the ascending colon. The polypswere 8 to 12 mm in size. These polyps were removed with a cold snare or hot snare. Resection and retrieval were complete. Again noted the large approximately 35 mm polypoid lesio was found in the hepatic flexure. The polyp was sessile with central depression. 5mL of normal saline were injected submucosally be not the lesion in the peripheral part with the lifted but the central polyp was not well lifted. Using cold snare excision biopsy was performed from 1 of the polypoid peripheral segments. Distal part was was tattooed with an injection of 3 mL of Spot (carbon black). Two sessile polyps were found in the descending colon. The polypswere 5 to 6 mm in size. These polyps were removed with a cold snare.Resection and retrieval were complete. Four sessile polyps were found in the rectum and sigmoid colon. The polyps were 3 to 8 mm in size. These polyps were removed with a jumbo cold forceps or cold snare. Resection and retrieval were complete. Scattered small-mouthed diverticula were found in the sigmoid colon, descending colon and transverse colon. Internal hemorrhoids were found during retroflexion. The hemorrhoids were small. Electronically signed by Cleo Higgins M.D. Cleo Higgins M.D. 03/13/2023 9:04:41 AM Number of Addenda: 0 Note Initiated On: 03/13/2023 7:08 AM Procedure Code(s): --- Professional --- 24221, Colonoscopy, flexible; with removal of tumor(s), polyp(s), or other lesion(s) by snare technique 59397, Colonoscopy, flexible; with directed submucosal injection(s),any substance 78404, 59, Colonoscopy, flexible; with biopsy, single or multiple Diagnosis Code(s): --- Professional --- K64.8, Other hemorrhoids D12.2, Benign neoplasm of ascending colon D12.4, Benign neoplasm of descending colon D12.8, Benign neoplasm of rectum D12.5, Benign neoplasm of sigmoid colon D12.3, Benign neoplasm of transverse colon (hepatic flexure orsplenic flexure) D12.6, Benign neoplasm of colon, unspecified K57.30, Diverticulosis of large intestine without perforation orabscess without bleeding CPT copyright 2020 [employer]. All rights reserved. The codes documented in this report are preliminary and upon lockstitch pocket setter reviewmay be revised to meet current compliance requirements. 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 Expl anation ADVANCE DIRECTIVE 05/19/2025 7:55 AM Power of Hourly Sign Language Interpreter-Medical * Full Code (Latest Code Status on File) Date Activated Date Inactivated Comments 05/19/2025 12:57 PM 05/25/2025 9:08 PM * Full Code Date Activated Date Inactivated Comments 12/30/2024 2:34 AM 01/01/2025 5:29 PM * Full Code Date Activated Date Inactivated Comments 08/11/2024 2:25 PM 08/15/2024 7:27 PM * Full Code Date Activated Date Inactivated Comments 03/13/2023 7:19 AM 03/13/2023 1:39 PM * Full Code Date Activated Date Inactivated Comments 03/13/2023 7:19 AM 03/13/2023 7:19 AM Healthcare Agents on File Name Relationship Healthcare Agent Relationship Communication Martha Camargo Spouse Health Care Agent [email or web address] Care Teams Hospitality Job Titles Relationship Specialty Start Date End Date Iraj Arriaza MD [address] [facility] [address] [place] [address] PCP - General Family Medicine 05/18/25 Evangelista Dumont MD [address] [place] [address] [place] [address] Referring Physician Ophthalmology 04/06/23 Cleo Higgins MD [address] [place] [address] [place] [address] Consulting Physician Gastroenterology 04/06/23 Silvio Dukes MD [address] [place] [address] [address] [place] [address] Surgeon General Surgery 04/25/23 Frieda Beck COTA Occupational Therapist Occupational Therapy 05/01/24 Fidelina Kelly RN [address] [place] [address] [address] [place] [address] Notary Public 08/18/24 Yamel Crane, OT Occupational Therapist Occupational Therapy 09/05/24 Nahum Mckeon MD Consulting Physician Neurology 01/01/25 [place] [address] [facility] [address] [address] Surgeon Cardiothoracic Surgery 05/25/25 Panchito Thomas MD [address] [place] [address] [address] Consulting Physician Cardiology 05/25/25 Miscellaneous, Not In File 05/25/25
[2025-06-01 13:28] LABS: Hematocrit 36.3 % (42.0-52.0); Hemoglobin 11.3 g/dL (14.0-18.0); Mean Corpuscular HGB Conc 31.1 g/dl (32-36); Mean Corpuscular Hemoglobin 30.1 pg (26-34); Mean Corpuscular Volume 96.5 fl (80-100); Platelet Count Result 624 k/mm3 (150-375); Red Blood Count 3.76 M/mm3 (4.6-6.20); White Blood Count 12.1 K/mm3 (4.5-10.0)
[2025-06-01 13:52] LABS: Alanine Aminotransferase 33 U/L (6-50); Albumin Level 3.8 g/dL (3.5-5.1); Alkaline Phosphatase 107 U/L (38-126); Anion Gap 7 mmol/L (4-12); Aspartate Amino Transferase 37 U/L (17-59); Bilirubin,Total 0.5 mg/dL (0.2-1.3); Blood Urea Nitrogen 13 mg/dL (9-20); Calcium 8.6 mg/dL (8.4-10.2); Carbon Dioxide 24 mmol/L (22-30); Chloride 104 mmol/L (98-107); Estimated Glomerular Filt Rate > 60; Glucose 152 mg/dL (65-110); Potassium 3.8 mmol/L (3.4-5.0); Sodium 135 mmol/L (137-145); Total Protein 6.9 g/dL (6.3-8.2)
--- OUTSIDE RECORDS SUMMARY | 2025-06-01 14:37 | XMS_ITS | Clinical Summary ---
Author Organization [employer] [address] Address [address] [place] [address] Care Team Providers Care Band [employer] Mill And Carriage Operator Name Role Phone Rafael Motta MD Primary Care Provider [phone] Allergies No known active allergies Medications albuterol [...] 50+ YEARS Completed 02/14/2023 , 01/03/2022 Insurance [facility] Care Teams Band [employer] Mill And Carriage Operator Relationship Specialty Start Date End Date Rafael Motta MD [address] [facility] [address] [place] [id number] PCP - General Family Practice 02/04/25
--- OUTSIDE RECORDS SUMMARY | 2025-06-01 14:37 | XMS_ITS | Clinical Summary ---
Author Organization [facility] Medical Office Building A Address [address] [place] [address] Care Team Providers Care Supervisor [place] Name Role Phone Evangelista Dumont MD Unavailable [phone] Cleo Higgins MD Unavailable [phone] Silvio Dukes MD Unavailable [phone] Frieda Beck CURRIE Unavailable Unavailable Fidelina Kelly RN Unavailable [phone] Yamel Crane OT Unavailable Unavailable Nahum Mckeon MD Unavailable Iraj Arriaza MD Primary Care Provider + Jacoby Lantigua MD Unavailable [phone] Panchito Thomas MD Unavailable [phone] Miscellaneous, Not In File Unavailable Unava ilable [...] counseling. Assessment & Plan (09/05/2023 12:49 PM MEDICAL TECHNOLOGIST CLINICAL): Wt Readings from Last 3 Encounters: 05/09/23 [...] (10/12/2022): Added automatically from request for surgery [id number] Abnormal gait 04/11/2022 Overview (04/11/2022): Ambulates with [...] (01/27/2022): Added automatically from request for surgery [id number] Weight loss 01/27/2022 Overview (05/03/2022): Added automatically from request for surgery [id number] Vision loss 01/03/2022 Assessment & Plan (02/14/2022 [...] qd Assessment & Plan (09/05/2023 12:49 PM MEDICAL TECHNOLOGIST CLINICAL): BP Readings from Last 3 Encounters: 05/09/23 [...] Resolved Date Coronary artery disease invo lving salt river coronary artery of salt river heart without angina pectoris 04/16/2025 05/18/2025 Shortness [...] (01/27/2022): Added automatically from request for surgery [id number] Other specified glaucoma 01/03/2022 Assessment & Plan (02/14/2022 11:26 AM CDT): Has appointment scheduled with ophto laser surgeon Saw Dr. dumont was referred out to someone else. Had multiple eye tests done. Low normal eye pressure Encounters Date Type Department Care Team Description 05/25/[address] [facility] Medicine Surgery [id number] [place] [phone] Rick Camilo NP 05/19/2025 8:09 AM CDT Anesthesia Event [facility] [address] [place] [address] Vega Pimentel MD Ware, Melita C., NP 05/19/2025 8:00 AM CDT - 05/19/2025 1:00 PM CDT Surgery [facility] [address] [place] [address] Jacoby Lantigua MD CORONARY ARTERY BYPASS GRAFT X 1 WITH TAYLOR CONDUIT 05/19/2025 7:05 AM CDT Ancillary Procedure [facility] [address] [place] [address] 05/19/2025 6:11 AM CDT - 05/25/2025 5:08 PM CDT Hospital Encounter [address] [address] Jacoby Lantigua MD Coronary artery disease involving salt river coronary artery of salt river heart without angina pectoris (Primary Dx) Discharge Disposition: Discharge to home, home health skilled care 05/18/2025 11:30 AM CDT Office Visit [facility] Primary Care at [address] [place] [address] Iraj Arriaza MD Sarcoidosis (Primary Dx); NSTEMI (non-ST elevated myocardial infarction) (HCC); 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; 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 (HCC); Centrilobular emphysema (HCC); History of CVA with residual deficit; Seizure disorder (HCC); Hypertension, essential; Prediabetes; Mixed hyperlipidemia 05/08/2025 11:11 AM CDT - 05/08/2025 11:59 PM CDT Hospital Encounter [facility] [address] [place] [address] Discharge Disposition: Discharge to home or self care 05/08/2025 10:45 AM CDT Pre-Admission Testing [facility] Pre Anesthesia Testing [address] [place] [address] Coronary artery disease involving salt river coronary artery of salt river heart without angina pectoris; Shortness of breath 04/24/2025 Telephone [facility] [address] [place] [address] [address] [place] [address] Rafael Motta MD Referral Request 04/20/2025 10:45 AM CDT Office Visit [facility] Medical Group Pulmonary at [address] [place] [address] Raghavendra Robb DO Pulmonary sarcoidosis (Primary Dx); Shortness of breath; Centrilobular emphysema (HCC); Nocturnal hypoxia 04/20/2025 Telephone [facility] Primary Care at [address] [place] [address] Iraj Arriaza MD Insurance Referrals 04/15/[address] [facility] Medicine Surgery [id number] [place] [address] [address] [place] [phone] Cristal Castorena NP Reschedule surgery f/u bx 04/09/2025 12:40 PM CDT Anesthesia Event [facility] [address] [place] [address] Phi Morris DO Gibbons, Sulaiman Vail, URSULA 04/09/2025 12:00 PM CDT - 04/09/2025 2:00 PM CDT Surgery [facility] [address] [place] [address] Monica Washington MD ION ROBOT BRONCHOSCOPY 04/09/2025 9:21 AM CDT - 04/09/2025 4:18 PM CDT Hospital Encounter [facility] [address] [place] [address] Monica Washington MD Lung nodule Discharge Disposition: Discharge to home or self care 04/09/2025 8:55 AM CDT - 04/09/2025 11:59 PM CDT Hospital Encounter [facility] [address] [place] [address] Lung nodule Discharge Disposition: Discharge to home or self care 04/09/2025 8:50 AM CDT - 04/09/2025 11:59 PM CDT Hospital Encounter [facility] [address] [place] [address] Lung nodule Discharge Disposition: Discharge to home or self care 04/07/[address] [facility] Medical Group Pulmonary at [place] [address] [facility] [address] [place] [address] Samreen Martin LPN Abnormal PET 04/01/2025 9:45 AM CDT Lab [address] [address] 03/30/[address] [facility] Primary Care at [place] [address] [facility] [address] [place] [address] Referring, MD Octavia Referral Request 03/30/2025 [facility] [address] [place] [address] [address] [place] [phone] Cristal Castorena NP Cancel CABG- Pulm consult 03/30/2025 Orders Only [facility] Surgery [address] [place] [address] [address] [place] [phone] Cristal Castorena NP Lung nodules (Primary Dx) 03/26/2025 10:06 AM CDT - 03/26/2025 11:59 PM CDT Hospital Encounter [facility] [address] [place] [address] Lung nodules Discharge Disposition: Discharge to home or self care 03/24/2025 11:59 PM CDT Anesthesia Event [facility] [address] [place] [address] Priti Landon NP 03/24/2025 9:10 AM CDT - 03/24/2025 11:59 PM CDT Hospital Encounter [facility] [address] [place] [address] Discharge Disposition: Discharge to home or self care 03/24/2025 8:45 AM CDT Pre-Admission Testing [facility] Pre Anesthesia Testing [address] [place] [address] Encounter for preadmission testing (Primary Dx); Coronary artery disease of salt river heart with stable angina pectoris, unspecified vessel or lesion type; Shortness of breath; Other specified coagulation defects 03/23/2025 Orders Only [facility] Surgery [address] [place] [address] [address] [place] [phone] Cristal Castorena NP Lung nodules (Primary Dx) 03/19/2025 2:39 PM CDT - 03/19/2025 11:59 PM CDT Hospital Encounter [facility] [address] [place] [address] NSTEMI (non-ST elevated myocardial infarction) (HCC); Syncope, unspecified syncope type Discharge Disposition: Discharge to home or self care 03/19/2025 2:39 PM CDT - 03/19/2025 11:59 PM CDT Hospital Encounter [facility] [address] [place] [address] NSTEMI (non-ST elevated myocardial infarction) (HCC); Syncope, unspecified syncope type Discharge Disposition: Discharge to home or self care 03/11/[address] [facility] Medical Group Primary Care at [address] [place] [address] Rafael Motta MD 03/10/2025 1:00 PM CDT Office Visit [facility] Surgery [id number] [place] [address] [address] [place] [address] Jacoby Lantigua MD NSTEMI (non-ST elevated myocardial infarction) (HCC) (Primary Dx); Coronary artery disease involving salt river coronary artery of salt river heart without angina pectoris 03/10/2025 Orders Only [facility] Surgery [address] [facility] [address] [place] [address] Jacoby Lantigua MD NSTEMI (non-ST [...] ANGIOGRAPHY AND WITH OR WITHOUT LEFT VENTRICULOGRAM [id number]; Surgeon: Panchito Thomas MD; Location: [facility] CARDIAC COMMUNICATIONS TOWER CLIMBER; Service: Cardiovascular; Laterality: N/A; CARDIAC CATHETERIZATION 12/31/2024 N/A Procedure: PCI PHIL MAJOR CORONARY [id number] - [id number]; Surgeon: Panchito Thomas MD; Location: [facility] CARDIAC COMMUNICATIONS TOWER CLIMBER; Service: Cardiovascular; Laterality: N/A; CARDIAC CATHETERIZATION 12/31/2024 N/A Procedure: IVUS/OCT CORS OR GRAFTS, FIRST VESSEL (+) [id number]; Surgeon: Panchito Thomas MD; Location: [facility] CARDIAC COMMUNICATIONS TOWER CLIMBER; Service: Cardiovascular; Laterality: N/A; PERCUTANEOUS PLACEMENT INTRAVASCULAR STENT CERVICAL CAROTID ARTERY LUNG BIOPSY CORONARY ARTERY BYPASS GRAFT 05/19/2025 Chest/N/A Procedure: CORONARY ARTERY BYPASS GRAFT X 1 WITH TAYLOR CONDUIT; Surgeon: Jacoby Lantigua MD; Location: OPERATING ROOM; Service: Cardiothoracic; Laterality: N/A; TAYLOR Medical History Medical History Date Comments Hypertension Pneumonia NSTEMI (non-ST elevated myoc ardial infarction) ([facility]) Stroke ([facility]) 02/2024 Limb alert care status left arm d/t stroke in February 2024 Colonic mass benign Carotid stenosis, right Seizure ([facility]) 1st seizure 03/22 25, compliant on Keppra [...] week 01/02/2025 How often do you attend [facility] or [facility] services? Never 01/02/2025 Do you belong to any clubs o r organizations such as religion groups, unions, fraternal or athletic groups, or [...] staff should administer the PHQ-9) 0 01/07/2025 [facility] - Occupational Stress Questionnaire Answer Date [...] any time in the past 12 m [facility], were you homeless or living in a longterm (including now)? No 01/02/2025 Social Connection and Isolation Panel Answer Date Recorded In a typical week, how many times do you talk on the phone with family, friends, or neighbors? More than three times a week 05/22/2025 How often do you get togethe r with friends or relatives? More than three times a week 05/22/2025 How often do you attend chur ch or samaritan services? Never 05/22/2025 Do you belong to any clubs o r organizations such as religion groups, unions, fraternal or athletic groups, or [...] any time in the past 12 m [facility], were you homeless or living in a longterm (including now)? No 05/22/2025 [facility] Utilities Answer Date Recorded In the past [...] on file Legal Sex Male 9:17 AM MEDICAL TECHNOLOGIST CLINICAL Gender Identity Male 04/26/2023 4:17 PM CDT [...] st Contact Info) Description 09/23/2025 8:30 AM MEDICAL TECHNOLOGIST CLINICAL Hospital Encounter [address] [address] Cleo Higgins MD [address] [place] [address] [place] [address] 09/23/2025 8:30 AM MEDICAL TECHNOLOGIST CLINICAL - 09/23/2025 9:00 AM MEDICAL TECHNOLOGIST CLINICAL Surgery [address] [address] Cleo Higgins MD [address] [place] [address] [address] [place] [address] COLONOSCOPY Scheduled Procedures Name Priority Associated Diagnoses Date/Ti me COLONOSCOPY History of colonic polyps 09/23/2025 8:30 AM MEDICAL TECHNOLOGIST CLINICAL Health Maintenance Due Date Last Done Comments [...] or provider. Medical Devices Implanted Type Area Hvac Engineering Technician Device Identifier Shelf Expiration Date Model / [...] 7:45 AM CDT Coronary artery disease involving salt river coronary artery of salt river heart without angina pectoris POCT GLUCOSE DEVICE [...] 00 PM CDT Coronary artery disease involving salt river coronary artery of [place] river heart without angina pectoris CRITICAL CARE Routine [...] ANESTHESIA RAVI Routine 05/19/2025 8:46 AM CDT MN AN CENTRAL LINE MULTI LUMEN Routine 05/19/2025 8:44 AM CDT ANESTHESIA CENTRAL VENOUS LINE PLACEMENT Routine 05/19/2025 8:44 AM CDT ANESTHESIA ARTERIAL LINE PLACEMENT Routine 05/19/2025 8:44 AM CDT MN AN ELECTIVE ENDOTRACHEAL AIRWAY Routine 05/19/2025 8:42 AM CDT CORONARY ARTERY BYPASS GRAFT. 05/19/2025 8:09 AM CDT Coronary artery disease involving salt river coronary artery of salt river heart without angina pectoris RAVI ADD-ON FOR OR Routine 05/19/2025 7:0 4 AM CDT POTASSIUM, WHOLE BLOOD STAT 6:43 AM CDT PREPARE RBC STAT 05/19/2025 6:24 AM CDT ECG 12-LEAD Routine 05/08/2025 11:32 AM CDT Coronary artery disease involving salt river coronary artery of salt river heart without angina pectoris XR CHEST PA LATERAL 2 VIEWS Schedule Routine, Read Routine (OP Routine) 05/08/2025 11:31 AM CDT Coronary artery disease involving salt river coronary artery of salt river heart without angina pectoris EGFR Routine 05/08/2025 11:11 AM CDT Coronary artery disease involving salt river coronary artery of salt river heart without angina pectoris BASIC METABOLIC PANEL Routine 05/08/2025 11:11 AM CDT Coronary artery disease involving salt river coronary artery of salt river heart without angina pectoris PROTIME-INR Routine 05/08/2025 11:11 AM CDT Coronary artery disease involving salt river coronary artery of salt river heart without angina pectoris APTT Routine 05/08/2025 11:11 AM CDT Coronary artery disease involving salt river coronary artery of salt river heart without angina pectoris Shortness of breath CBC WITHOUT DIFFERENTIAL Routine 05/08/2025 11:11 AM CDT Coronary artery disease involving salt river coronary artery of salt river heart without angina pectoris TYPE AND SCREEN Routine 05/08/2025 11:11 AM CDT Coronary artery disease involving salt river coronary artery of salt river heart without angina pectoris URINALYSIS AND REFLEX TO MICROSCOPIC AND CULTURE Routine 05/08/2025 11:11 AM CDT Coronary artery disease involving salt river coronary artery of salt river heart without angina pectoris XR CHEST 1 [...] ACID-FAST STAIN Routine 04/09/2025 2:24 PM CDT MN AN ELECTIVE ENDOTRACHEAL AIRWAY Routine 04/09/2025 1:11 [...] 9:45 AM CDT Coronary artery disease of salt river heart with stable angina pectoris, unspecified vessel or lesion type XR CHEST PA LATERAL 2 VIEWS Schedule Routine, Read Routine (OP Routine) 03/24/2025 9:29 AM CDT Coronary artery disease of salt river heart with stable angina pectoris, unspecified vessel [...] No failure. The tip of a retracted Loudon-Luke catheter is in the superior vena cava. [...] No failure. The tip of a retracted L[place]on-Luke catheter is in the superior vena cava. IMPRESSION: No failure. Electronically signed by: Halley Moreno M.D. Rick Camilo MEDICAL REIMBURSEMENT MANAGER IMG XR PROCEDURES Final Res ult * [...] ORDERABLES Final R esult Performing Organization Address City/[facility] Co de Phone Number PEPE [phone] [address] [place] [address] * (ABNORMAL) aPTT (05/25/2025 4:56 [...] BLOOD ORDERABLES Final Result Performing Organization Address [facility] Co de Phone Number PEPE [phone] [address] Department [facility] [place], [place] [id number] * Protime-INR (05/25/2025 4:56 AM CDT) PT [...] BLOOD ORDERABLES Final Result Performing Organization Address City/[facility]/ZIP Co de Phone Number PEPE RAMACHANDRAN [address] [address] Department [place] [address] * (ABNORMAL) CBC without differential (05/25/2025 4:56 AM CDT) WBC 7.95 3.80 - 9.90 K/cumm Hgb 10.1(L) 13.0 - 17.5 g/dL [facility] Hct 30.7(L) 38.9 - 50.3 % [facility] Plt 242 150 - 400 K/cumm [facility] MPV 9.5 9.1 - 12.3 fL [facility] RBC 3.21(L) 4.30 - 5.80 M/cumm [facility] MCV 95.6 81.3 - 96.4 fL [facility] MCH 31.5 27.1 - 33.3 pg [facility] MCHC 32.9 32.3 - 35.7 g/dL [facility] RDW CV 13.1 11.1 - 14.9 % [facility] RDW SD 45.6 35.7 - 48.1 fL [facility] NRBC abs 0.00 0.00 - 0.01 K/cumm [facility] Blood 05/25/2025 4:56 AM CDT 05/25/2025 5:03 AM CDT us Jacoby Lantigua MD LAB BLOOD ORDERABLES Final R esult Performing Organization Address City/[facility]/ZIP Co de Phone Number PEPE RAMACHANDRAN [phone] [address] Department of [employer] [place], [place] [id number] * (ABNORMAL) Basic metabolic panel (05/25/2025 4:56 AM CDT) Pathologist [facility] Sodium 138 135 - 145 mmol/L Potassium, pl 4.3 3.3 - 4.9 mmol/L [facility] Chloride 103 97 - 110 mmol/L [facility] CO2 26 22 - 32 mmol/L [facility] Anion gap 9 2 - 15 mmol/L [facility] BUN 14 6 - 25 mg/dL [facility] Creatinine 0.80 0.80 - 1.30 mg/dL [facility] Glucose 116 70 - 199 mg/dL [facility] Comment: Interpretive Data Fasting glucose >/= [...] 2022. Calcium 8.3(L) 8.5 - 10.3 mg/dL [facility] Blood 05/25/2025 4:56 AM CDT 05/25/2025 5:04 AM CDT Jacoby Lantigua MD LAB BLOOD ORDERABLES Final R esult [facility] [address] [address] Department of Laboratories [place], [place] [id number] * XR Chest 1 View - in [...] signed by: Dwaine Baxter M.D. Rick Camilo MEDICAL REIMBURSEMENT MANAGER IMG XR PROCEDURES Final Res ult * [...] MD LAB BLOOD ORDERABLES Final R esult [facility] [address] [address] Department [place] [address] * (ABNORMAL) Basic metabolic panel (05/24/2025 5:34 AM CDT) Pathologist [facility] Sodium 137 135 - 145 mmol/L Potassium, pl 4.2 3.3 - 4.9 mmol/L [facility] Chloride 102 97 - 110 mmol/L [facility] CO2 25 22 - 32 mmol/L [facility] Anion gap 10 2 - 15 mmol/L [facility] BUN 16 6 - 25 mg/dL [facility] Creatinine 0.76(L) 0.80 - 1.30 mg/dL [facility] Glucose 126 70 - 199 mg/dL [facility] Comment: Interpretive Data Fasting glucose >/= [...] 2022. Calcium 8.4(L) 8.5 - 10.3 mg/dL [facility] Blood 05/24/2025 5:34 AM CDT 05/24/2025 5:34 AM CDT Jacoby Lantigua MD LAB BLOOD ORDERABLES Final R esult [facility] [address] [address] Department [place] [address] * (ABNORMAL) aPTT (05/24/2025 5:27 AM CDT) aPTT 20(L) 26 - 38 sec Comment: Interpretive Data Heparin therapeutic range: 66.0 - 100.0 seconds. Range based on correlation with therapeutic heparin activity range of 0.3 - 0.7 Units/mL. Current interpretive data was last revised on 2023. Blood 05/24/2025 5:27 AM CDT 05/24/2025 5:34 AM CDT Jacoby Lantigua MD LAB BLOOD ORDERABLES Final R [facility] Performing Organization Address [facility] Co de Phone Number PEPE [address] [address] [place], [place] [phone] * Protime-INR (05/24/2025 5:27 AM CDT) PT 12.3 10.2 - 13.5 sec INR 1.09 0.90 - 1.20 [facility] Comment: Interpretive data Oral anticoagulant therapeutic ranges: Venous thromboembolism prophylaxis or treatment: 2.0-3.0 CARDIOLOGY Standard range: 2.0-3.0 High-intensity range: 2.5-3.5 Refer to indication-specific guidelines for appropriate target ranges for prosthetic heart valve replacement. Current interpretive data was last revised on 2019. Blood 05/24/2025 5:27 AM CDT 05/24/2025 5:34 AM CDT Jacoby Lantigua MD LAB BLOOD ORDERABLES Final R esult PEPE [address] [address] [place], [place] [phone] * (ABNORMAL) CBC without differential (05/24/2025 5:27 AM CDT) WBC 7.95 3.80 - 9.90 K/cumm Hgb 9.4(L) 13.0 - 17.5 g/dL [facility] Hct 29.2(L) 38.9 - 50.3 % [facility] Plt 205 150 - 400 K/cumm [facility] MPV 9.5 9.1 - 12.3 fL [facility] RBC 3.09(L) 4.30 - 5.80 M/cumm [facility] MCV 94.5 81.3 - 96.4 fL [facility] MCH 30.4 27.1 - 33.3 pg [facility] MCHC 32.2(L) 32.3 - 35.7 g/dL [facility] RDW CV 13.0 11.1 - 14.9 % [facility] CH RDW SD 44.5 35.7 - 48.1 fL [facility] NRBC abs 0.02(H) 0.00 - 0.01 K/cumm [facility] Blood 05/24/2025 5:27 AM CDT 05/24/2025 5:34 AM CDT Jacoby Lantigua MD LAB BLOOD ORDERABLES Final R esult PEPE MADIE [address] [address] Department [place] [address] * POCT glucose (05/23/2025 7:23 AM CDT) Glucose, POC 132 70 - 199 mg/dL Blood 05/23/2025 7:23 AM CDT 05/23/2025 7:23 AM CDT Jacoby Lantigua MD LAB POCT ORDERABLES - DEVICE Final Result Performing Organization Address [facility]/State/ZIP Co de Phone Number PAULINAMARY RAMACHANDRAN [address] [address] [place] [address] * XR Chest 1 View - in [...] signed by: Dwaine Baxter M.D. Rick Camilo MEDICAL REIMBURSEMENT MANAGER IMG XR PROCEDURES Final Res ult * [...] MD LAB BLOOD ORDERABLES Final R esult [facility] [address] [address] Department [place] [address] * (ABNORMAL) CBC without differential (05/23/2025 5:46 AM CDT) Pathologist [facility] WBC 7.36 3.80 - 9.90 K/cumm Hgb 10.5(L) 13.0 - 17.5 g/dL [facility] Hct 31.8(L) 38.9 - 50.3 % [facility] Plt 202 150 - 400 K/cumm [facility] MPV 10.0 9.1 - 12.3 fL [facility] RBC 3.45(L) 4.30 - 5.80 M/cumm [facility] MCV 92.2 81.3 - 96.4 fL [facility] MCH 30.4 27.1 - 33.3 pg [facility] MCHC 33.0 32.3 - 35.7 g/dL [facility] RDW CV 13.0 11.1 - 14.9 % [facility] RDW SD 43.5 35.7 - 48.1 fL [facility] NRBC abs 0.00 0.00 - 0.01 K/cumm [facility] Blood 05/23/2025 5:46 AM CDT 05/23/2025 6:25 AM CDT Jacoby Lantigua MD LAB BLOOD ORDERABLES Final R esult Performing Organization Address City/[facility]/ZIP Co de Phone Number PEPE RAMACHANDRAN [address] [address] [place] [address] * Magnesium (05/23/2025 5:46 AM CDT) Magnesium 1.8 1.4 - 2.5 mg/dL Blood 05/23/2025 5:46 AM CDT 05/23/2025 8:56 AM CDT Jacoby Lantigua MD LAB BLOOD ORDERABLES Final R [facility] Performing Organization Address [facility] Co de Phone Number PEPE RAMACHANDRAN [address] [address] [place] [address] * (ABNORMAL) Basic metabolic panel (05/23/2025 5:46 AM CDT) Sodium 138 135 - 145 mmol/L Potassium, pl 3.4 3.3 - 4.9 mmol/L [facility] Chloride 101 97 - 110 mmol/L [facility] CO2 27 22 - 32 mmol/L [facility] Anion gap 10 2 - 15 mmol/L [facility] BUN 16 6 - 25 mg/dL [facility] Creatinine 0.75(L) 0.80 - 1.30 mg/dL [facility] Glucose 141 70 - 199 mg/dL [facility] [facility] Comment: Interpretive Data Fasting glucose >/= [...] 2022. Calcium 8.7 8.5 - 10.3 mg/dL [facility] Blood 05/23/2025 5:46 AM CDT 05/23/2025 6:26 AM CDT Jacoby Lantigua MD LAB BLOOD ORDERABLES Final R esult Performing Organization Address [facility] de Phone Number PEPE RAMACHANDRAN [address] [place] [address] * ECG 12 lead (05/23/2025 3:22 AM CDT) 05/23/2025 3:22 AM CDT Narrative [facility] - 05/23/2025 10:38 AM CDT Vent Rate: 121 bpm RR Interval: 495 msec MN Interval: 0 msec QRS Duration: 126 msec QT Interval: 360 msec QTC Interval: 432 msec P-R-T [place]: 0 - -26 - 32 degrees IMPRESSION: ATRIAL FIBRILLATION WITH RAPID VENTRICULAR RESPONSE POSSIBLE INFERIOR MYOCARDIAL INFARCTION , PROBABLY OLD ABNORMAL RHYTHM ECG ATRIAL FIBRILLATION IS NEW Electronically Signed By: Niecy White MD Jacoby Lantigua MD ECG ORDERABLES Final Result Performing Organization Address [facility] de Phone Number [facility] * POCT glucose (05/22/2025 8:09 PM CDT) Glucose, POC 133 70 - 199 mg/dL Blood 05/22/2025 8:09 PM CDT 05/22/2025 8:09 PM CDT Jacoby Lantigua MD LAB POCT ORDERABLES - DEVICE Final Result Performing Organization Address [facility] Co de Phone Number PEPE RAMACHANDRAN [address] [place] [address] * POCT glucose (05/22/2025 5:21 PM CDT) Glucose, POC 116 70 - 199 mg/dL Blood 05/22/2025 5:21 PM CDT 05/22/2025 5:21 PM CDT us Jacoby aLntigua MD LAB POCT ORDERABLES - DEVICE Final Result Performing Organization Address [facility] Co de Phone Number PEPE RAMACHANDRAN [address] [facility] [place] [address] * POCT glucose (05/22/2025 12:08 PM CDT) Glucose, POC 142 70 - 199 mg/dL Blood 05/22/2025 12:0 8 PM CDT 05/22/2025 12:08 PM CDT Jacoby Lantigua MD LAB POCT ORDERABLES - DEVICE Final Result Performing Organization Address [facility] de Phone Number PEPE RAMACHANDRAN [address] [facility] [place] [address] * POCT glucose (05/22/2025 7:34 AM CDT) Glucose, POC 120 70 - 199 mg/dL Blood 05/22/2025 7:34 AM CDT 05/22/2025 7:34 AM CDT Jacoby Lantigua MD LAB POCT ORDERABLES - DEVICE Final Result Performing Organization Address [facility] de Phone Number PEPE RAMACHANDRAN [phone] [facility] [place] [address] * XR Chest 1 View - in [...] in situ. The tip of the retracted Loudon-Luke catheter is in the superior vena cava. [...] in situ. The tip of the retracted Loudon-Luke catheter is in the superior vena cava. Heart not enlarged. No failure. No active infiltrate. IMPRESSION: No active disease. Electronically signed by: Halley Moreno M.D. us Rick Camilo MEDICAL REIMBURSEMENT MANAGER IMG XR PROCEDURES Final Res ult * [...] ORDERABLES Final R esult Performing Organization Address [facility] Co de Phone Number PEPE RAMACHANDRAN [address] [place] [address] * (ABNORMAL) CBC without differential [...] ORDERABLES Final R esult Performing Organization Address [facility] Co de Phone Number PEPE RAMACHANDRAN [address] [place] [address] * (ABNORMAL) Basic metabolic panel [...] CH Creatinine 0.78(L) 0.80 - 1.30 mg/dL [facility] Glucose 125 70 - 199 mg/dL [facility] Comment: Interpretive Data Fasting glucose >/= [...] 2022. Calcium 8.3(L) 8.5 - 10.3 mg/dL [facility] Blood 05/22/2025 5:22 AM CDT 05/22/2025 5:36 AM CDT Jacoby Lantigua MD LAB BLOOD ORDERABLES Final R esult Performing Organization Address City/[facility] Co de Phone Number [facility] [address] [place] [address] * POCT glucose (05/21/2025 8:04 PM CDT) Glucose, POC 132 70 - 199 mg/dL Blood 05/21/2025 8:04 PM CDT 05/21/2025 8:04 PM CDT Jacoby Lantigua MD LAB POCT ORDERABLES - DEVICE Final Result Performing Organization Address [facility] Co de Phone Number [facility] [phone] [place] [address] * POCT glucose (05/21/2025 5:30 PM CDT) Glucose, POC 137 70 - 199 mg/dL Blood 05/21/2025 5:30 PM CDT 05/21/2025 5:30 PM CDT Jacoby Lanitgua MD LAB POCT ORDERABLES - DEVICE Final Result Performing Organization Address [facility]/ZIP Co de Phone Number PEPE RAMACHANDRAN [address] [facility] [place] [address] * POCT glucose (05/21/2025 11:30 AM CDT) Glucose, POC 169 70 - 199 mg/dL Blood 05/21/2025 11:3 0 AM CDT 05/21/2025 11:30 AM CDT Jacoby Lantigua MD LAB POCT ORDERABLES - DEVICE Final Result Performing Organization Address [facility] Co de Phone Number PEPE RAMACHANDRAN [address] [facility] [place] [address] * POCT glucose (05/21/2025 7:19 AM CDT) Glucose, POC 151 70 - 199 mg/dL Blood 05/21/2025 7:19 AM CDT 05/21/2025 7:19 AM CDT Jacoby Lantigua MD LAB POCT ORDERABLES - DEVICE Final Result Performing Organization Address [facility] Co de Phone Number PEPE RAMACHANDRAN [phone] [place] [address] * XR Chest 1 View - in [...] situ. The distal tip of the retracted Loudon-Luke catheter is in the superior vena cava. [...] situ. The distal tip of the retracted Loudon-Luke catheter is in the superior vena cava. [...] BLOOD ORDERABLES Final Result Performing Organization Address City/State/[facility] Co de Phone Number [facility] [address] [place] [address] * eGFR (05/21/2025 2:59 AM [...] MD LAB BLOOD ORDERABLES Final R esult [facility] [address] [place] [address] * (ABNORMAL) CBC without differential (05/21/2025 2:59 AM CDT) WBC 12.96(H) 3.80 - 9.90 K/cumm Hgb 10.3(L) 13.0 - 17.5 g/dL [facility] Hct 31.0(L) 38.9 - 50.3 % [facility] Plt 140(L) 150 - 400 K/cumm [facility] Comment:No clot detected in sample. MPV 9.5 9.1 - 12.3 fL [facility] RBC 3.30(L) 4.30 - 5.80 M/cumm [facility] MCV 93.9 81.3 - 96.4 fL [...] ORDERABLES Final R esult Performing Organization Address City/[facility]/ZIP Co de Phone Number PEPE RAMACHANDRAN [address] [place] [address] * Magnesium (05/21/2025 2:59 AM CDT) Magnesium 1.9 1.4 - 2.5 mg/dL Blood 05/21/2025 2:59 AM CDT 05/21/2025 3:06 AM CDT Jacoby Lantigua MD LAB BLOOD ORDERABLES Final [facility] Performing Organization Address [facility] de Phone Number PEPE RAMACHANDRAN [address] [place] [address] * (ABNORMAL) Basic metabolic panel (05/21/2025 2:59 AM CDT) Pathologist [facility] Sodium 136 135 - 145 mmol/L Potassium, pl 3.4 3.3 - 4.9 mmol/L [facility] Chloride 102 97 - 110 mmol/L [facility] CO2 24 22 - 32 mmol/L [facility] Anion gap 10 2 - 15 mmol/L [facility] BUN 11 6 - 25 mg/dL [facility] Creatinine 0.77(L) 0.80 - 1.30 mg/dL [facility] Glucose 152 70 - 199 mg/dL [facility] Comment: Interpretive Data Fasting glucose >/= [...] 2022. Calcium 8.0(L) 8.5 - 10.3 mg/dL [facility] Blood 05/21/2025 2:59 AM CDT 05/21/2025 3:06 AM CDT us Jacoby Lantigua MD LAB BLOOD ORDERABLES Final R esult Performing Organization Address [facility] Co de Phone Number PEPE RAMACHANDRAN [phone] [facility] [place] [address] * POCT glucose (05/20/2025 8:34 PM CDT) Glucose, POC 147 70 - 199 mg/dL Blood 05/20/2025 8:34 PM CDT 05/20/2025 8:34 PM CDT Jacoby Lantigua MD LAB POCT ORDERABLES - DEVICE Final Result Performing Organization Address [facility] de Phone Number PAULINAMARY [address] [facility] [place] [address] * POCT glucose (05/20/2025 4:48 PM CDT) Glucose, POC 164 70 - 199 mg/dL Blood 05/20/2025 4:48 PM CDT 05/20/2025 4:48 PM CDT Jacoby Lantigua MD LAB POCT ORDERABLES - DEVICE Final Result Performing Organization Address [facility] de Phone Number PAULINAMARY [address] [address] [facility] [place] [address] * POCT glucose (05/20/2025 12:21 PM CDT) Glucose, POC 170 70 - 199 mg/dL Blood 05/20/2025 12:2 1 PM CDT 05/20/2025 12:21 PM CDT Jacoby Lantigua MD LAB POCT ORDERABLES - DEVICE Final Result Performing Organization Address [facility]/ZIP Co de Phone Number PEPE [address] [place] [address] * ECG 12 lead (05/20/2025 8:24 AM CDT) 05/20/2025 8:24 AM CDT Narrative [facility] - 05/20/2025 10:14 PM CDT Vent Rate: 79 bpm RR Interval: 751 msec MN Interval: 160 msec QRS Duration: 102 msec QT Interval: 359 msec QTC Interval: 394 msec P-R-T [place]: 18 - 44 - 58 degrees IMPRESSION: SINUS RHYTHM NONSPECIFIC ST ELEVATION [0.05+ mV ST ELEVATION] BORDERLINE ECG Electronically Signed By: Dr. Vic Noble [facility] us Jacoby Lantigua MD ECG ORDERABLES Final Result [facility] [employer] [facility] * Critical Care (05/20/2025 7:45 AM CDT) [...] plan with the ICU team and other medical/solar consultant staff, making frequent assessments and decisions [...] in the medical record us Shanae Matias MEDICAL REIMBURSEMENT MANAGER IN CLINIC/BEDSIDE ORDERABLES Final Result * POCT glucose (05/20/2025 7:11 AM CDT) Glucose, POC 146 70 - 199 mg/dL Blood 05/20/2025 7:11 AM CDT 05/20/2025 7:11 AM CDT us Jacoby Lantigua MD LAB POCT ORDERABLES - DEVICE Final Result PEPE [id number] [place] [address] * XR Chest 1 View [...] in situ. The distal tip of the Loudon-Luke catheter is in the right pulmonary artery. [...] in situ. The distal tip of the Loudon-Luke catheter is in the right pulmonary artery. The endotracheal and nasogastric tubes have been removed. Heart not enlarged. No failure. No active infiltrate. IMPRESSION: No failure. Electronically signed by: Halley Moreno M.D. us Rick Camilo MEDICAL REIMBURSEMENT MANAGER IMG XR PROCEDURES Final Res ult * [...] LAB BLOOD ORDERABLES Final R esult PEPE [id number] [place] [address] * (ABNORMAL) CBC without differential (05/20/2025 2:14 AM CDT) WBC 11.67(H) 3.80 - 9.90 K/cumm Hgb 10.7(L) 13.0 - 17.5 g/dL [facility] Hct 33.3(L) 38.9 - 50.3 % [facility] Plt 163 150 - 400 K/cumm [...] ORDERABLES Final R esult Performing Organization Address [facility] Co de Phone Number [facility] [address] [place], [place] [id number] * Magnesium (05/20/2025 2:14 AM CDT) Pathologist [facility] Magnesium 2.1 1.4 - 2.5 mg/dL Blood 05/20/2025 2:14 AM CDT 05/20/2025 2:15 AM CDT Jacoby Lantigua MD LAB BLOOD ORDERABLES Final R esult Performing Organization Address [facility] de Phone Number [facility] [address] [address] [place] [address] * (ABNORMAL) Basic metabolic panel (05/20/2025 2:14 AM CDT) Sodium 139 135 - 145 mmol/L Potassium, pl 4.3 3.3 - 4.9 mmol/L [facility] Chloride 107 97 - 110 mmol/L [facility] CO2 22 22 - 32 mmol/L [facility] Anion gap 10 2 - 15 mmol/L [facility] BUN 11 6 - 25 mg/dL [facility] Creatinine 0.69(L) 0.80 - 1.30 mg/dL [facility] Glucose 144 70 - 199 mg/dL [facility] Comment: Interpretive Data Fasting glucose >/= [...] 2022. Calcium 8.0(L) 8.5 - 10.3 mg/dL [facility] Blood 05/20/2025 2:14 AM CDT 05/20/2025 2:14 AM CDT us Jacoby Lantigua MD LAB BLOOD ORDERABLES Final R esult Performing Organization Address City/[facility]/ZIP Co de Phone Number [facility] [address] [address] [place] [address] * Oxyhemoglobin, pulmonary artery (05/20/2025 2:00 AM CDT) Pathologist [facility] Oxyhemoglobin, PA 70.9 % Comment: Interpretive Data No reference range established. Current interpretive data was last revised 2019. Blood 05/20/2025 2:00 AM CDT 05/20/2025 2:13 AM CDT us Rick Camilo NP LAB BLOOD ORDERABLES Final Result Performing Organization Address City/[facility]/ZIP Co de Phone Number [facility] [address] [address] [place] [address] * Calcium, ionized, whole blood (05/20/2025 2:00 AM CDT) Ca, ionized, bld 4.64 4.50 - 5.10 mg/dL Blood 05/20/2025 2:00 AM CDT 05/20/2025 2:13 AM CDT us Rick Camilo NP LAB BLOOD ORDERABLES Final Result Performing Organization Address [facility] Co de Phone Number PEPE RAMACHANDRAN [address] [place] [address] * eGFR (05/19/2025 9:07 PM CDT) eGFR [...] BLOOD ORDERABLES Final R esult PEPE RAMACHANDRAN [address] [place] [address] * Magnesium (05/19/2025 9:07 PM CDT) Magnesium 2.2 1.4 - 2.5 mg/dL Blood 05/19/2025 9:07 PM CDT 05/19/2025 9:31 PM CDT us Jacoby Lantigua MD LAB BLOOD ORDERABLES Final R esult PEPE RAMACHANDRAN [address] [place] [address] * (ABNORMAL) Basic metabolic panel (05/19/2025 9:07 [...] 2022. Calcium 8.3(L) 8.5 - 10.3 mg/dL [facility] Blood 05/19/2025 9:07 PM CDT 05/19/2025 9:31 PM CDT us Jacoby Lantigua MD LAB BLOOD ORDERABLES Final R esult Performing Organization Address City/[facility]/ZIP Co de Phone Number PEPE RAMACHANDRAN [address] [address] Department [place] [address] * Type and screen (05/19/2025 9:06 PM CDT) Gloria, indirect Negative ABO Rh O Positive [facility] Blood 05/19/2025 9:06 PM CDT 05/19/2025 9:27 PM CDT Narrative [facility] - 05/19/2025 10:08 PM CDT Has the patient had Daratumumab or Isatuximab in the past 6 months?->Unknown Jacoby Lantigua MD LAB BLOOD BANK TEST ORDERABL ES Final Result Performing Organization Address [facility] Co de Phone Number PEPE MADIE [address] [place] [address] * POCT glucose (05/19/2025 8:48 PM CDT) Glucose, POC 134 70 - 199 mg/dL Blood 05/19/2025 8:48 PM CDT 05/19/2025 8:48 PM CDT Jacoby Lantigua MD LAB POCT ORDERABLES - DEVICE Final Result Performing Organization Address [facility] de Phone Number PEPE MADIE [address] [place] [address] * (ABNORMAL) Blood gas, arterial (05/19/2025 7:46 [...] ORDERABLES Final R esult Performing Organization Address [facility] Co de Phone Number PEPE RAMACHANDRAN [address] [facility] [place] [address] * (ABNORMAL) CBC without differential (05/19/2025 6:05 PM CDT) Pathologist [facility] WBC 13.62(H) 3.80 - 9.90 K/cumm Hgb 11.6(L) 13.0 - 17.5 g/dL [facility] Hct 35.4(L) 38.9 - 50.3 % [facility] Plt 205 150 - 400 K/cumm [facility] MPV 9.3 9.1 - 12.3 fL [facility] RBC 3.78(L) 4.30 - 5.80 M/cumm [facility] MCV 93.7 81.3 - 96.4 fL [facility] MCH 30.7 27.1 - 33.3 pg [facility] MCHC 32.8 32.3 - 35.7 g/dL [facility] RDW CV 12.7 11.1 - 14.9 % [facility] RDW SD 43.8 35.7 - 48.1 fL [facility] NRBC abs 0.00 0.00 - 0.01 K/cumm [facility] Blood 05/19/2025 6:05 PM CDT 05/19/2025 6:16 PM CDT Rick Camilo NP LAB BLOOD ORDERABLES Final Result Performing Organization Address [facility] Co de Phone Number PAULINAMARY RAMACHANDRAN [address] [address] [facility] [place] [address] * Calcium, ionized, whole blood (05/19/2025 6:02 PM CDT) [facility] Ca, ionized, bld 4.63 4.50 - 5.10 mg/dL Blood 05/19/2025 6:02 PM CDT 05/19/2025 6:13 PM CDT Rick Camilo NP LAB BLOOD ORDERABLES Final Result Performing Organization Address City/[facility] Co de Phone Number PEPE RAMACHANDRAN [address] [address] [facility] [place] [address] * eGFR (05/19/2025 6:02 PM CDT) eGFR [...] BLOOD ORDERABLES Final Result Performing Organization Address [facility] Co de Phone Number [facility] [address] [address] [facility] [place] [address] * Magnesium (05/19/2025 6:02 PM CDT) Pathologist [facility] Magnesium 2.3 1.4 - 2.5 mg/dL Blood 05/19/2025 6:02 PM CDT 05/19/2025 6:13 PM CDT Rick Camilo NP LAB BLOOD ORDERABLES Final Result Performing Organization Address [facility] Co de [place] [address] [address] [place] [address] * (ABNORMAL) Blood gas, arterial (05/19/2025 6:02 [...] Camilo NP LAB BLOOD ORDERABLES Final Result [facility] [address] [address] [place] [address] * (ABNORMAL) Basic metabolic panel (05/19/2025 6:02 [...] BLOOD ORDERABLES Final Result Performing Organization Address [facility] Co de Phone Number PEPE RAMACHANDRAN [address] [address] [facility] [place] [address] * POCT glucose (05/19/2025 4:25 PM CDT) Glucose, POC 128 70 - 199 mg/dL Blood 05/19/2025 4:25 PM CDT 05/19/2025 4:25 PM CDT Result [facility] Jacoby Lantigua MD LAB POCT ORDERABLES - DEVICE Final Result Performing Organization Address [facility] Phone Number PEPE RAMACHANDRAN [address] [address] Department [place] [address] * (ABNORMAL) Blood gas, arterial (05/19/2025 2:47 [...] ORDERABLES Final R esult Performing Organization Address [facility] Co de Phone Number PEPE RAMACHANDRAN [address] [address] [place] [address] * POCT glucose (05/19/2025 2:43 PM CDT) Glucose, POC 131 70 - 199 mg/dL Blood 05/19/2025 2:43 PM CDT 05/19/2025 2:43 PM CDT Jacoby Lantigua MD LAB POCT ORDERABLES - DEVICE Final Result PEPE [address] Department [place] [address] * Surgical pathology (05/19/2025 2:00 PM CDT) Tissue (Lymph Node, Single excision) 05/19/2025 10:05 AM CDT Narrative PATHOLOGY - 05/22/2025 1:13 PM CDT EPIC results best viewed via link to PDF [facility] Department of Pathology [address] [place] [id number] Note to Patients: This report may [...] Final Report Patient Name: NASRA CAMARGO Address: [place] [id number] Gender: M : [id number] (Age: 69) Service: Cardiothoracic Location: Hospital #: [id number] Patient Type: [facility] Taken: 05/19/2025 Received: 05/19/2025 Accessioned: 05/19/2025 Reported: [...] concurs. Clinical History: Coronary artery disease involving salt river coronary artery of salt river heart without angina pectoris Procedure: coronary artery bypass graft x1 Gross Description: The specimen is submitted in a single formalin filled container labeled [facility] and internal mammary lymph node for [...] determined by the Surgical Pathology Department at [facility] as part of an ongoing quality assurance technician program and in compliance with federally mandated [...] characteristics determined by the Surgical Pathology Department [facility]. It has not been cleared or approved by the U. S. Food and Drug Administration. Note for decalcified specimens: This assay has not been validated on decalcified tissues. Results should be interpreted with caution given the possibility of false negativity on decalcified specimens us Jacoby Lantigua MD LAB PATHOLOGY ORDERABLES Fin al Result PATHOLOGY [address] [place] [address] * Critical Care (05/19/2025 1:58 PM CDT) [...] plan with the ICU team and other medical/solar consultant staff, making frequent assessments and decisions [...] in place. The distal tip of the Loudon-Luke catheter is in the right main pulmonary [...] in place. The distal tip of the Loudon-Luke catheter is in the right main pulmonary [...] ORDERABLES Final R esult Performing Organization Address [facility] Co de Phone Number PEPE RAMACHANDRAN [address] [place] [address] * eGFR (05/19/2025 1:14 PM CDT) eGFR [...] ORDERABLES Final R esult Performing Organization Address City/[facility]/ZIP Co de Phone Number PEPE RAMACHANDRAN [address] [facility] [place], [place] [address] * aPTT (05/19/2025 1:14 PM CDT) aPTT [...] ORDERABLES Final R esult Performing Organization Address [facility] de Phone Number [facility] [address] [address] [facility] [place] [address] * (ABNORMAL) Protime-INR (05/19/2025 1:14 PM CDT) PT 14.2(H) 10.2 - 13.5 sec INR 1.26(H) 0.90 - 1.20 [facility] Comment: Interpretive data Oral anticoagulant therapeutic ranges: Venous thromboembolism prophylaxis or treatment: 2.0-3.0 CARDIOLOGY Standard range: 2.0-3.0 High-intensity range: 2.5-3.5 Refer to indication-specific guidelines for appropriate target ranges for prosthetic heart valve replacement. Current interpretive data was last revised on 2019. Blood 05/19/2025 1:14 PM CDT 05/19/2025 1:23 PM CDT Jacoby Lantigua MD LAB BLOOD ORDERABLES Final R esult Performing Organization Address [facility] de Phone Number PEPE [phone] [address] [facility] [place] [address] * (ABNORMAL) CBC without differential (05/19/2025 1:14 PM CDT) WBC 14.14(H) 3.80 - 9.90 K/cumm Hgb 11.4(L) 13.0 - 17.5 g/dL [facility] Hct 33.7(L) 38.9 - 50.3 % [facility] Plt 167 150 - 400 K/cumm [facility] MPV 9.3 9.1 - 12.3 fL [facility] RBC 3.60(L) 4.30 - 5.80 M/cumm [facility] MCV 93.6 81.3 - 96.4 fL [facility] MCH 31.7 27.1 - 33.3 pg [facility] MCHC 33.8 32.3 - 35.7 g/dL [facility] RDW CV 12.6 11.1 - 14.9 % [facility] RDW SD 43.2 35.7 - 48.1 fL [facility] NRBC abs 0.00 0.00 - 0.01 K/cumm [facility] Blood 05/19/2025 1:14 PM CDT 05/19/2025 1:23 PM CDT Jcaoby Lantigua MD LAB BLOOD ORDERABLES Final R esult PEPE RAMACHANDRAN [address] [address] [place] [address] * Magnesium (05/19/2025 1:14 PM CDT) Pathologist [facility] Magnesium 2.5 1.4 - 2.5 mg/dL Blood 05/19/2025 1:14 PM CDT 05/19/2025 1:21 PM CDT Jacoby Lantigua MD LAB BLOOD ORDERABLES Final R esult Performing Organization Address City/[facility] Co de Phone Number PEPE RAMACHANDRAN [address] [address] [place] [address] * (ABNORMAL) Blood gas, arterial (05/19/2025 1:14 [...] ORDERABLES Final R esult Performing Organization Address City/[facility]/ZIP Co de Phone Number PEPE RAMACHANDRAN [address] [address] [place] [address] * (ABNORMAL) Basic metabolic panel (05/19/2025 1:14 PM CDT) Pathologist [facility] Sodium 138 135 - 145 mmol/L Potassium, pl 4.5 3.3 - 4.9 mmol/L [facility] Chloride 107 97 - 110 mmol/L [facility] CO2 23 22 - 32 mmol/L [facility] Anion gap 8 2 - 15 mmol/L [facility] BUN 15 6 - 25 mg/dL [facility] Creatinine 0.73(L) 0.80 - 1.30 mg/dL [facility] Glucose 139 70 - 199 mg/dL [facility] Comment: Interpretive Data Fasting glucose >/= [...] 2022. Calcium 7.7(L) 8.5 - 10.3 mg/dL [facility] Blood 05/19/2025 1:14 PM CDT 05/19/2025 1:21 PM CDT Jacoby Lantigua MD LAB BLOOD ORDERABLES Final R esult Performing Organization Address [facility]/ZIP Co de Phone Number PEPE RAMACHANDRAN [address] [address] [place] [address] * POCT glucose (05/19/2025 1:05 PM CDT) Glucose, POC 123 70 - 199 mg/dL Blood 05/19/2025 1:05 PM CDT 05/19/2025 1:05 PM CDT Jacoby Lantigua MD LAB POCT ORDERABLES - DEVICE Final Result [facility] [address] [address] Department [place] [address] * (ABNORMAL) POC Blood Gas and Chemistries, [...] - DEVICE Final Result Performing Organization Address [facility] Co de Phone Number PEPE RAMACHANDRAN [address] [address] [facility] [place] [address] * POC Activated Clotting Time, High Range (05/19/2025 11:46 AM CDT) ACT 112 87 - 138 sec Blood 05/19/2025 11:4 6 AM CDT 05/19/2025 11:46 AM CDT Jacoby Lantigua MD LAB BLOOD ORDERABLES Final R esult Performing Organization Address [facility] Co de Phone Number PEPE RAMACHANDRAN [address] [address] [facility] [place] [address] * (ABNORMAL) POC Activated Clotting Time, High Range (05/19/2025 11:16 AM CDT) ACT 485(H) 87 - 138 sec Blood 05/19/2025 11:1 6 AM CDT 05/19/2025 11:16 AM CDT Jacoby Lantigua MD LAB BLOOD ORDERABLES Final R esult Performing Organization Address [facility] Co de Phone Number PEPE RAMACHANDRAN [address] [address] [place] [address] * (ABNORMAL) POC Blood Gas and Chemistries, [...] - DEVICE Final Result Performing Organization Address [facility] Co de Phone Number PEPE RAMACHANDRAN [address] [address] Department [facility] [place], [place] [id number] * Platelet count (05/19/2025 11:08 AM CDT) [facility] Plt 177 150 - 400 K/cumm Blood 05/19/2025 11:0 8 AM CDT 05/19/2025 11:17 AM CDT Jacoby Lantigua MD LAB BLOOD ORDERABLES Final R esult Performing Organization Address [facility] Co de Phone Number PAULINAMARY RAMACHANDRAN [address] [address] Department of [employer] [place], [place] [phone] * (ABNORMAL) POC Activated Clotting Time, High Range (05/19/2025 10:42 AM CDT) Pathologist [facility] ACT 548(H) 87 - 138 sec Blood 05/19/2025 10:4 2 AM CDT 05/19/2025 10:42 AM CDT us Jacoby Lantigua MD LAB BLOOD ORDERABLES Final R esult PEPE RAMACHANDRAN [address] [address] [place] [address] * (ABNORMAL) POC Blood Gas and Chemistries, [...] ORDERABLES - DEVICE Final Result PEPE RAMACHANDRAN [address] [address] Department [place] [address] * (ABNORMAL) POC Activated Clotting Time, High Range (05/19/2025 9:49 AM CDT) ACT 576(H) 87 - 138 sec Blood 05/19/2025 9:49 AM CDT 05/19/2025 9:49 AM CDT Jacoby Lantigua MD LAB BLOOD [place] [address] [address] [place] [address] * (ABNORMAL) POC Blood Gas and Chemistries, [...] - DEVICE Final Result Performing Organization Address [facility] Co de Phone Number PEPE RAMACHANDRAN [address] [address] [facility] [place] [address] * POC Activated Clotting Time, High Range (05/19/2025 8:50 AM CDT) ACT 101 87 - 138 sec Blood 05/19/2025 8:50 AM CDT 05/19/2025 8:50 AM CDT Jacoby Lantigua MD LAB BLOOD ORDERABLES Final R esult Performing Organization Address [facility] de Phone Number PEPE RAMACHANDRAN [address] [address] [facility] [place] [address] * RAVI (05/19/2025 8:46 AM CDT) Anatomical [...] inferior: normal 16- Apical septal: normal 17- Comins: normal Valves: Aortic Valve: Annulus: normal Leaflet [...] Final Resu lt * PULMONARY ARTERY CATH, MN AN CENTRAL LINE MULTI LUMEN (05/19/2025 8:44 [...] ORDERABLES Edited Res ult - Final * MN AN ELECTIVE ENDOTRACHEAL AIRWAY (05/19/2025 8:42 AM [...] For OR (05/19/2025 7:04 AM CDT) Pathologist [facility] BSA 2.21 m2 CONS SCIMAGE Narrative CONS [...] 05/19/2025 6:58 AM CDT us Priti Landon MEDICAL REIMBURSEMENT MANAGER LAB BLOOD ORDERABLES Final Res ult Performing Organization Address City/[facility]/ZIP Co de Phone Number PEPE RAMACHANDRAN [address] [address] [place] [address] * Prepare RBC: 4 Units (05/19/2025 6:24 AM CDT) Product code [id number] [facility] Unit Number [id number] 3-A [facility] Product Blood Type OPOS [facility] Dispense Status RETURNED [facility] Product code [id number] [facility] Unit Number [id number] 2-B [facility] Product Blood Type OPOS [facility] Dispense Status RETURNED [facility] Product code [id number] [facility] Unit Number [id number] 3-T [facility] Product Blood Type OPOS [facility] Dispense Status RETURNED [facility] Product code [id number] Unit Number [id number] 6-S [facility] Product Blood Type OPOS [facility] Dispense Status RETURNED [facility] Blood 05/19/2025 6:24 AM CDT Narrative [facility] - 05/20/2025 3:08 AM CDT Specify Procedure:->CABG Are special requirements needed? (All products are leukoreduced and CMV- safe)- >No Date required:-[id number] LRRBC # of [id number] Reasons:-Hold for procedure (specify procedure)} us Rick Camilo MEDICAL REIMBURSEMENT MANAGER BLOOD BANK PRODUCT ORDERABL ES Final Result Performing Organization Address [facility] Co de Phone Number PEPE RAMACHANDRAN [address] [address] [place] [address] * ECG 12 lead (05/08/2025 11:32 AM CDT) 05/08/2025 11:3 2 AM CDT Narrative [facility] - 05/08/2025 4:06 PM CDT Vent Rate: 65 bpm RR Interval: 910 msec MN Interval: 181 msec QRS Duration: 89 msec QT Interval: 341 msec QTC Interval: 353 msec P-R-T [place]: 99 - -14 - 33 degrees IMPRESSION: SINUS RHYTHM LOW QRS VOLTAGE IN PRECORDIAL LEADS ANTERIOR MYOCARDIAL INFARCTION , PROBABLY OLD ABNORMAL ECG NO CHANGE FROM PREVIOUS TRACING NOTED Electronically Signed By: Humberto Rosado MD us Jacoby Lantigua MD ECG ORDERABLES Final Result [facility] * XR Chest PA Lateral 2 View [...] MD LAB BLOOD ORDERABLES Final R esult [facility] [address] [address] [place] [address] * Urinalysis reflex to microscopic [...] tendency for uric acid stone formation. Source: [facility] Current Interpretive Data was last revised [...] O RDERABLES Final Result Performing Organization Address [facility] de Phone Number PEPE [address] [address] Department [facility] [place], [place] [phone] * aPTT (05/08/2025 11:11 AM CDT) aPTT [...] ORDERABLES Final R esult Performing Organization Address City/[facility] Co de Phone Number PEPE [address] [address] [place] [address] * Protime-INR (05/08/2025 11:11 AM [...] ORDERABLES Final R esult Performing Organization Address [facility] Co de Phone Number PEPE RAMACHANDRAN [address] [address] [place] [address] * CBC without differential (05/08/2025 11:11 AM CDT) WBC 9.88 3.80 - 9.90 K/cumm Hgb 14.7 13.0 - 17.5 g/dL [facility] Hct 45.0 38.9 - 50.3 % [facility] Plt 272 150 - 400 K/cumm [facility] MPV 9.4 9.1 - 12.3 fL [facility] RBC 4.74 4.30 - 5.80 M/cumm [facility] MCV 94.9 81.3 - 96.4 fL [facility] MCH 31.0 27.1 - 33.3 pg [facility] MCHC 32.7 32.3 - 35.7 g/dL [facility] RDW CV 12.5 11.1 - 14.9 % [facility] RDW SD 43.8 35.7 - 48.1 fL [facility] NRBC abs 0.00 0.00 - 0.01 K/cumm [facility] Blood 05/08/2025 11:1 1 AM CDT 05/08/2025 11:24 AM CDT Jacoby Lantigua MD LAB BLOOD ORDERABLES Final R esult Performing Organization Address City/[facility] Co de Phone Number PEPE RAMACHANDRAN [address] [address] [place] [address] * Type and screen (05/08/2025 11:11 AM CDT) Gloria, indirect Negative ABO Rh O Positive [facility] Blood 05/08/2025 11:1 1 AM CDT 05/08/2025 11:48 AM CDT Narrative [facility] - 05/08/2025 12:33 PM CDT Has the patient had Daratumumab or Isatuximab in the past 6 months?->Unknown Jacoby Lantigua MD LAB BLOOD BANK TEST ORDERABL ES Final Result [facility] [address] [address] [place] [address] * (ABNORMAL) Basic metabolic panel (05/08/2025 11:11 AM CDT) Sodium 136 135 - 145 mmol/L Potassium, pl 4.4 3.3 - 4.9 mmol/L [facility] Chloride 101 97 - 110 mmol/L [facility] CO2 25 22 - 32 mmol/L [facility] Anion gap 10 2 - 15 mmol/L [facility] BUN 8 6 - 25 mg/dL [facility] Creatinine 0.79(L) 0.80 - 1.30 mg/dL [facility] Glucose 118 70 - 199 mg/dL [facility] Comment: Interpretive Data Fasting glucose >/= [...] LAB BLOOD ORDERABLES Final R esult PEPE [address] [address] [place] [address] * XR Chest 1 View [...] / OR operative note. Monica Washington MD [facility] FLUOROSCOPY PROCEDU RES Final Result [facility] * Aerobic culture and gram stain Bronchoalveolar lavage Lobe, left upper (04/09/2025 2:24 PM CDT) Direct Specimen Exam Stain: Cytospin Gram stain shows: Rare polymorphonuclear leukocytes seen. No squamous epithelial cells seen. Other cellular material present. No organisms seen. Comment:Testing performed by : [facility], [address] [place] [address] Report Final Report: No growth PEPE RAMACHANDRAN Comment:Testing performed by : [facility], [address] [facility], [place]., [address] Bronchoalveolar lavage (Lobe, left upper) 04/09/2025 2:24 PM CDT 04/09/2025 4:25 PM CDT Narrative PEPE - 04/11/2025 9:49 AM CDT Testing performed by [facility] Microbiology Laboratory ([phone]) Specimens submitted from normally sterile body sites [...] GENE RAL ORDERABLES Final Result PEPE RAMACHANDRAN [address] [address] [place] [address] * Aerobic culture and gram stain Bronchoalveolar lavage Lobe, right upper (04/09/2025 2:24 PM CDT) Direct Specimen Exam Stain: Cytospin Gram stain shows: No polymorphonuclear leukocytes seen. No squamous epithelial cells seen. Other cellular material present. No organisms seen. Comment:Testing performed by : [facility], [address] [place]., [address] Report Final Report: No growth PEPE RAMACHANDRAN Comment:Testing performed by : [facility], [address] [place]., [address] Bronchoalveolar lavage (Lobe, right upper) 04/09/2025 2:24 PM CDT 04/09/2025 4:27 PM CDT Narrative PEPE - 04/11/2025 9:49 AM CDT Testing performed by [facility] Microbiology Laboratory ([phone]) Specimens submitted from normally sterile body sites [...] RAL ORDERABLES Final Result Performing Organization Address City/[facility]/ZIP Co de Phone Number PEPE RAMACHANDRAN [address] [address] [facility] [place] [address] * Mycology (fungal) culture Bronchoalveolar lavage Lobe, left upper (04/09/2025 2:24 PM CDT) Report Final Report: No growth of fungus Comment:Testing performed by : [facility], [address] [place]., [address] Bronchoalveolar lavage (Lobe, left upper) 04/09/2025 2:24 PM CDT 04/09/2025 4:25 PM CDT Narrative [facility] - 05/07/2025 7:54 AM CDT Testing performed by [facility] Microbiology Laboratory ([phone]). Monica Washington MD LAB MICROBIOLOGY - GENE RAL ORDERABLES Final Result Performing Organization Address [facility] Co de Phone Number PAULINAMARY RAMACHANDRAN [address] [address] [place] [address] * Mycology (fungal) culture Bronchoalveolar lavage Lobe, right upper (04/09/2025 2:24 PM CDT) Report Final Report: No growth of fungus Comment:Testing performed by : [facility], [address] [place]., [address] Bronchoalveolar lavage (Lobe, right upper) 04/09/2025 2:24 PM CDT 04/09/2025 4:27 PM CDT Narrative [facility] - 05/07/2025 7:54 AM CDT Testing performed by [facility] Microbiology Laboratory ([phone]). Monica Washington MD LAB MICROBIOLOGY - GENE RAL ORDERABLES Final Result Performing Organization Address City/[facility]/ZIP Co de Phone Number PAULINAMARY RAMACHANDRAN [address] [address] [place] [address] * MN AN ELECTIVE ENDOTRACHEAL AIRWAY (04/09/2025 1:11 PM [...] Washington MD - 04/09/2025 12:28 PM CDT [facility] Patient Name: Nasra Camargo Procedure Date: 04/09/2025 12:28 PM Date of : 1955 Admit Type: Outpatient Age: 69 Note Status: Finalized Procedure: Bronchoscopy Indications: Left upper lobe nodule, Right upper lobe nodule Providers: Monica Washington M.D., URSULA Wilks (Anesthesia Staff), Joyce Dan RN, Latricia Mendoza, Girls Swimming Coach Referring MD: Medicines: See the Anesthesia note [...] the procedure by the physician,the nurse, the silver miner and the microbiological laboratory technician in the procedure room. Mental Status [...] lesions,and no secretions. Robotic bronchoscopy utilizing the Cleversafe robot platform was performed.The CT scan was [...] lesion was performed. Robotic bronchoscopy utilizing the Cleversafe robot platform was performed.The CT scan was [...] of the right upper lobe using an Cleversafe Flexision 21 gauge needle and sent for [...] was performed. - Robotic bronchoscopy utilizing the Cleversafe robot platform was performed. - Rapid On-Site [...] results best viewed via link to PDF [facility] Department of Pathology [address] [place], [place] [id number] Note to Patients: This report may contain [...] Final Report Patient Name: NASRA CAMARGO Address: [place] [address] Gender: M : 1955 (Age: 69) Service: Surgery Location: GI Lab Hospital #: [id number] Patient Type: [facility] Taken: 04/09/2025 Received: 04/10/2025 Accessioned: 04/10/2025 Reported: [...] determined by the Surgical Pathology Department at [facility] as part of an ongoing quality assurance technician program and in compliance with federally mandated [...] characteristics determined by the Surgical Pathology Department [facility]. It has not been cleared or approved by the U. S. Food and Drug Administration. Note for decalcified specimens: This assay has not been validated on decalcified tissues. Results should be interpreted with caution given the possibility of false negativity on decalcified specimens us Monica Washington MD LAB PATHOLOGY ORDERABLE S Final Result PATHOLOGY [address] [place] [address] * Cytology (04/09/2025 12:00 AM CDT) Lymph Node (Cytology) 04/09/2025 04/09/2025 4:25 PM CDT Narrative 04/13/2025 9:16 PM CDT EPIC results best viewed via link to PDF [facility] Department of Pathology [address] [place] [address] Note to Patients: This report may contain [...] Final Report Patient Name: NASRA CAMARGO Address: [address] [address] Gender: M : 1955 (Age: 69) Service: Gastro Location: [facility] Hospital # [id number] Patient Type: [facility] Taken: 04/09/2025 Received: 04/09/2025 Accessioned: 04/09/2025 Reported: 04/13/2025 Physician(s): Edmund Velez M.D. Diagnosis: A. Lung, right upper lobe, EBUS aspiration cytology: - Negative for malignancy. B. Lung, left upper lobe, EBUS aspiration cytology: - Negative for malignancy. Shona Aponte M.D. Report Electronically Reviewed and Signed Out By Shona Aponte M.D. 04/13/2025 21:16:37[facility] [place] [place](AS[facility])Specimen(s) Received: A: FNA, Endobronchial [...] determined by the Surgical Pathology Department at [facility] as part of an ongoing quality assurance technician program and in compliance with federally mandated [...] characteristics determined by the Surgical Pathology Department [facility]. It has not been cleared or approved by the U. S. Food and Drug Administration. Unless otherwise noted all cytology processing, staining and screening is performed at [facility] ([address] [place] [address]). REPORT IMAGES AND SCANNED DOCUMENTS, IF INCLUDED, ONLY VIEWABLE IN PDF VERSION OF REPORT us Monica Washington MD LAB CYTOLOGY ORDERABLES Final Result * Cytology (04/09/2025 12:00 AM CDT) Bronch Lavage (Cytology) 04/09/2025 04/09/2025 4:21 PM CDT Narrative 04/13/2025 9:00 PM CDT EPIC results best viewed via link to PDF [facility] Department of Pathology [address] [place] [address] Note to Patients: This report may contain [...] Final Report Patient Name: NASRA CAMARGO Address: [address] [address] Gender: M : 1955 (Age: 69) Service: Gastro Location: [facility] # [id number] Patient Type: [facility] Taken: 04/09/2025 Received: 04/09/2025 Accessioned: 04/09/2025 Reported: [...] determined by the Surgical Pathology Department at [facility] as part of an ongoing quality assurance technician program and in compliance with federally mandated [...] characteristics determined by the Surgical Pathology Department [facility]. It has not been cleared or approved by the U. S. Food and Drug Administration. Unless otherwise noted all cytology processing, staining and screening is performed at [facility] ([address] [place] [address]). REPORT IMAGES AND SCANNED DOCUMENTS, IF INCLUDED, [...] test. T-SPOT.TB Panel A Spot Count 0 [facility] T-SPOT.TB Panel B Spot Count 0 [facility] T-SPOT.TB Negative Control Passed [facility] T-SPOT.TB Positive Control Passed [facility] Comment: Test Performed at: [facility] [employer] [address] [place] [phone] JOSE MCGEE,PHD Blood 04/01/2025 10:1 9 AM CDT 04/01/2025 10:31 AM CDT us Yuri [place] MD LAB MICROBIOLOGY - GENE RAL ORDERABLES Final Result [facility] [address] [facility] Department [place] [address] * PET/CT FDG Skull to Thigh (03/26/2025 [...] FDG-PET/CT IMAGING DATE OF STUDY: 03/26/2025 SCANNER: [employer] RADIOPHARMACEUTICAL: 15.6 mCi F-18 Fluorodeoxyglucose (FDG) i.v. [...] obtained. The study was interpreted on the [employer] workstation. The mean liver SUV (reported for software quality analyst purposes) is 2.5. The total scanned area [...] obtained. The study was interpreted on the [employer] workstation. The mean liver SUV (reported for software quality analyst purposes) is 2.5. The total scanned area [...] by: Silvio Geronimo DO us Cristal Castorena MEDICAL REIMBURSEMENT MANAGER IMG PET PROCEDURES Final Result * ECG 12 lead (03/24/2025 9:45 AM CDT) 03/24/2025 9:45 AM CDT Narrative [facility] - 03/24/2025 12:41 PM CDT Vent Rate: 56 bpm RR Interval: 1059 msec MN Interval: 186 msec QRS Duration: 87 msec QT Interval: 413 msec QTC Interval: 405 msec P-R-T [place]: 73 - -12 - 68 degrees IMPRESSION: SINUS BRADYCARDIA LOW QRS VOLTAGE IN PRECORDIAL LEADS ANTERIOR MYOCARDIAL INFARCTION , OF INDETERMINATE AGE OR POOR R-WAVE PROGRESSION ABNORMAL ECG Electronically Signed By: Mychal Childers MD us Jacoby Lantigua MD ECG ORDERABLES Final Result [facility] * XR Chest PA Lateral 2 View [...] BLOOD ORDERABLES Final R esult PEPE RAMACHANDRAN [address] [address] [place] [address] * Differential, auto (03/24/2025 9:16 AM CDT) Neutrophil abs 5.17 1.50 - 6.50 K/cumm Imm gran abs 0.04 0.00 - 0.10 K/cumm [facility] [facility] Lymphocyte abs 2.45 0.80 - 3.30 K/cumm [facility] Monocyte abs 0.75 0.20 - 0.80 K/cumm [facility] Eosinophil abs 0.19 0.00 - 0.50 K/cumm [facility] Basophil abs 0.05 0.00 - 0.10 K/cumm [facility] Neutrophil pct 59.7 % [facility] Comment: Interpretive Data Percent cell count reference ranges are not reported, since discordance with absolute values may lead to misinterpretation of CBC data. Current Interpretive Data was last revised on 2017. Imm gran pct 0.5 % [facility] Comment: Interpretive Data Percent cell count reference ranges are not reported, since discordance with absolute values may lead to misinterpretation of CBC data. Current Interpretive Data was last revised on 2017. Lymphocyte pct 28.3 % [facility] Comment: Interpretive Data Percent cell count reference ranges are not reported, since discordance with absolute values may lead to misinterpretation of CBC data. Current Interpretive Data was last revised on 2017. Monocyte pct 8.7 % [facility] Comment: Interpretive Data Percent cell count reference ranges are not reported, since discordance with absolute values may lead to misinterpretation of CBC data. Current Interpretive Data was last revised on 2017. Eosinophil pct 2.2 % [facility] Comment: Interpretive Data Percent cell count reference ranges are not reported, since discordance with absolute values may lead to misinterpretation of CBC data. Current Interpretive Data was last revised on 2017. Basophil pct 0.6 % [facility] Comment: Interpretive Data Percent cell count reference ranges are not reported, since discordance with absolute values may lead to misinterpretation of CBC data. Current Interpretive Data was last revised on 2017. Blood 03/24/2025 9:16 AM CDT 03/24/2025 9:36 AM CDT us Jacoby Lantigua MD LAB BLOOD ORDERABLES Final R esult [facility] [address] [address] Department [place] [address] * Urinalysis reflex to microscopic and culture [...] tendency for uric acid stone formation. Source: [facility] Current Interpretive Data was last revised [...] for microscopic UA and culture not met. [facility] Urine 03/24/2025 9:16 AM CDT 03/24/2025 10:17 AM CDT Jacoby Lantigua MD LAB MICROBIOLOGY - GENERAL O RDERABLES Final Result [facility] [address] [address] Department [place] [address] * (ABNORMAL) CBC with auto differential (03/24/2025 9:16 AM CDT) WBC 8.65 3.80 - 9.90 K/cumm Hgb 14.7 13.0 - 17.5 g/dL [facility] Hct 45.7 38.9 - 50.3 % [facility] Plt 318 150 - 400 K/cumm [facility] MPV 9.4 9.1 - 12.3 fL [facility] RBC 4.81 4.30 - 5.80 M/cumm [facility] MCV 95.0 81.3 - 96.4 fL [facility] MCH 30.6 27.1 - 33.3 pg [facility] MCHC 32.2(L) 32.3 - 35.7 g/dL [facility] RDW CV 12.7 11.1 - 14.9 % [facility] RDW SD 45.2 35.7 - 48.1 fL [facility] NRBC abs 0.00 0.00 - 0.01 K/cumm [facility] Blood 03/24/2025 9:16 AM CDT 03/24/2025 9:36 AM CDT Jacoby Lantigua MD LAB BLOOD ORDERABLES Final R esult Performing Organization Address [facility] de Phone Number [facility] [address] [address] Department [place] [address] * aPTT (03/24/2025 9:16 AM CDT) aPTT [...] ORDERABLES Final R esult Performing Organization Address [facility] Co de Phone Number [facility] [phone] [address] Department [place] [address] * Protime-INR (03/24/2025 9:16 AM CDT) PT 11.1 9.7 - 13.0 sec INR 1.03 0.90 - 1.20 [facility] Comment: Interpretive data Oral anticoagulant therapeutic ranges: Venous thromboembolism prophylaxis or treatment: 2.0-3.0 CARDIOLOGY Standard range: 2.0-3.0 High-intensity range: 2.5-3.5 Refer to indication-specific guidelines for appropriate target ranges for prosthetic heart valve replacement. Current interpretive data was last revised on 2019. Blood 03/24/2025 9:16 AM CDT 03/24/2025 9:36 AM CDT Jacoby Lantigua MD LAB BLOOD ORDERABLES Final R esult Performing Organization Address City/[facility] Co de Phone Number [facility] [phone] [address] Department [place] [address] * Type and screen (03/24/2025 9:16 AM CDT) Pathologist [facility] Gloria, indirect Negative ABO Rh O Positive [facility] Blood 03/24/2025 9:16 AM CDT 03/24/2025 9:51 AM CDT Narrative [facility] - 03/24/2025 10:31 AM CDT Has the patient had Daratumumab or Isatuximab in the past 6 months?->Unknown Jacoby Lantigua MD LAB BLOOD BANK TEST ORDERABL ES Final Result Performing Organization Address [facility] de Phone Number [facility] [address] [address] [place] [address] * Basic metabolic panel (03/24/2025 9:16 AM CDT) Sodium 137 135 - 145 mmol/L Potassium, pl 4.3 3.3 - 4.9 mmol/L [facility] Chloride 102 97 - 110 mmol/L [facility] CO2 25 22 - 32 mmol/L [facility] Anion gap 10 2 - 15 mmol/L [facility] BUN 9 6 - 25 mg/dL [facility] Creatinine 0.88 0.80 - 1.30 mg/dL [facility] Glucose 123 70 - 199 mg/dL [facility] Comment: Interpretive Data Fasting glucose >/= [...] BLOOD ORDERABLES Final R esult [facility] [address] [address] Department [place] [address] * CTA Head Neck W WO Contrast [...] Optiray-350 COMPARISON: MRI brain dated 12/31/2024 from [facility], CT head dated 12/29/2024 from [facility] FINDINGS: There is no acute intracranial [...] Optiray-350 COMPARISON: MRI brain dated 12/31/2024 from [facility], CT head dated 12/29/2024 from [facility] FINDINGS: There is no acute intracranial [...] WO CONTRAST HISTORY: Syncope ST segment elevated [place] ORDER DATE: 03/19/2025 3:15 PM TECHNIQUE: Multiple [...] WO CONTRAST HISTORY: Syncope ST segment elevated [place] ORDER DATE: 03/19/2025 3:15 PM TECHNIQUE: Multiple [...] by: Pavan De León M.D. us Jacoby aLntigua MD IMG CT PROCEDURES Final Resu lt [...] ORDERABLES Final Resul t Performing Organization Address City/[facility] Co de Phone Number [facility]) [address] [place] [address] [address] [place] [address] * Hepatitis C antibody Blood (12/11/2024 11:11 [...] last revised on 2019. Testing performed by: [facility], [address] [place] [address]., [address] Blood 12/11/2024 11:1 1 AM CDT 12/11/2024 9:53 PM CDT Rafael Motta MD LAB MICROBIOLOGY - GENERAL ORDER SANTO Final Result Performing Organization Address [facility] de Phone Number [facility]) [address] [place] [address] [place] [address] * COLONOSCOPY (03/13/2023 7:08 AM CDT) Anatomical Region Laterality Modality Other Narrative Procedure Note Cleo Higgins MD - 03/13/2023 7:[address] [facility] Patient Name: Nasra Camargo Procedure Date: 03/13/2023 7:08 AM Date of : 1955 Admit Type: Outpatient Age: 67 Gender: Male Attending MD: Cleo Higgins M.D. Room: [facility] ENDOSCOPY ROOM 1 Note Status: Finalized Patient [...] under direct vision. The Pediatric Colonoscope PCF-H190L [id number] was introducedthrough the anus and advanced to [...] 7:08 AM Procedure Code(s): --- Professional --- 43877, Colonoscopy, flexible; with removal of tumor(s), polyp(s), or other lesion(s) by snare technique 07225, Colonoscopy, flexible; with directed submucosal injection(s),any substance [address]32, 59, Colonoscopy, flexible; with biopsy, single or [...] perforation orabscess without bleeding CPT copyright 2020 [employer]. All rights reserved. The codes documented in this report are preliminary and upon sweatband decorating machine operator reviewmay be revised to meet current compliance requirements. Recognized by the [employer] for promoting quality in endoscopy Cleo Higgins MD ENDOSCOPY PROCEDURES Final Result from Last 3 Months or Most Recently Relevant to Health Maintenance Insurance [facility] Advance Directives For more information, please contact: [phone] Documents on File Type Date Recorded Patient Veneer Grader Expl anation ADVANCE DIRECTIVE 05/19/2025 7:55 AM Power of Plate Grainer Apprentice-Medical * Full Code (Latest Code Status on [...] Communication Martha Camargo Spouse Health Care Agent Care Teams Supervisor [employer] [place] Relationship Specialty Start Date End Date Iraj Arriaza MD [address] [facility] [address] [place] [address] PCP - General Family Medicine 05/18/25 Evangelista Dumont MD [address] [place] [address] [place] [address] Referring Physician Ophthalmology 04/06/23 Cleo Higgins MD [address] [place] [address] [place] [address] Consulting Physician Gastroenterology 04/06/23 Silvio Dukes MD [address] [place] [address] [address] [place] [address] Surgeon General Surgery 04/25/23 Frieda Beck COTA Occupational Therapist Occupational Therapy 05/01/24 Fidelina Kelly RN [address] [place] [address] [address] [place] [address] Multi Needle Machine Operator 08/18/24 Yamel Crane, OT Occupational Therapist Occupational Therapy 09/05/24 Nahum Mckeon MD Consulting Physician Neurology 01/01/25 [place] [address] [facility] [address] [address] Surgeon Cardiothoracic Surgery 05/25/25 Panchito Thomas MD [address] [place] [address] [address] Consulting Physician Cardiology 05/25/25 Miscellaneous, Not In File 05/25/25
--- OUTSIDE RECORDS SUMMARY | 2025-06-01 14:37 | XMS_ITS | Clinical Summary ---
Author Organization [facility] Address [address] [place] [address] Care Team Providers Care Instrumentation Manager Name Role Phone Rafael Motta MD Primary Care Provider [phone] Source Comments [facility],non-owned Affiliates and Associated Physician Practices is amultiple site organization consisting of ambulatory clinics and hospital sitesin [place], [place], [place] and [place]. This disclosure is being madepursuant to the Care Everywhere program and may not contain all information available regarding this patient. Last updated 18.[facility] Allergies No known active allergies Medications * [...] Description 03/04/2025 2:20 PM CDT Office Visit [facility] [address] [phone] Alejandra Quintero MD Spasticity as late effect [...] Recorded Patient Health Questionnaire-2 Score 0 02/16/2024 [facility] - Occupational Stress Questionnaire Answer Date Recorded [...] place to sleep or slept in a fci (including now)? No 06/02/2024 Sex and Gender [...] this topic Medical Devices Implanted Type Area Csr Retail Device Identifier Shelf Expiration Date Model / Serial / Lot Stent-06/02/20 24 Implanted:Qty : 1 on 06/02/2024 by Alejandra Quintero MD Stent Right: Carotid [employer] 01/28/2026 [employer] / [id number] / [id number] Description:R ICA Procedures Procedure Name Priority Date/Time [...] - 10.4 mg/dL 06/02/2024 9:17 AM CDT [facility] Anion Gap 8 6 - 16 mmol/L 06/02/2024 9:17 AM CDT [facility] BUN 10 7 - 26 mg/dL 06/02/2024 9:17 AM CDT [facility] Creatinine 0.92 0.72 - 1.25 mg/dL 06/02/2024 9:17 AM CDT [facility] eGFR by CKD-EPI >90 >=90 mL/min/1.7 3 m2 06/02/2024 9:17 AM CDT [facility] Blood BLOOD SPECIMEN / Unknown Venipuncture / Unknown 06/02/2024 8:47 AM CDT 06/02/2024 8:55 AM CDT us Alejandra Quintero MD LAB - CHEMISTRY ORDERABLES Fi nal Result [facility] [address] [place] [address] from Last 3 Months or Most Recently Relevant to Health Maintenance Insurance [facility] MEDICARE Advance Directives * Full Code (Latest Code Status on File) Date Activated Date Inactivated Comments 02/14/2024 7:34 PM 02/16/2024 8:26 PM Care Teams Instrumentation Manager Relationship Specialty Start Date End Date Rafael Motta MD [address] [place] [address] [place] [phone] PCP - General Hospitalist 02/15/24
--- OUTSIDE RECORDS SUMMARY | 2025-06-01 14:37 | XMS_ITS | Clinical Summary ---
Author Organization [facility] Address [address] [place] [address] Phone Care Team Providers Care Lozenge Maker Name Role Phone Provider, Not On File [...] topic Insurance MEDICARE C [employer] Care Teams Lozenge Maker Relationship Specialty Start Date End Date Provider, Not On File DC PCP - General 02/14/24
== END 2025-06-01 12:29 | disposition home or self-care (01) ==
DX: I25.10 Atherosclerotic heart disease of native coronary artery without angina pectoris (principal); Z48.812 Encounter for surgical aftercare following surgery on the circulatory system
CPT/HCPCS: 80053; 85027